=== PATIENT | female | born 1945 | race Caucasian/White ===

== ENCOUNTER 2022-05-03 05:39 | Inpatient (IN) | payer MEDICARE, SELFPAY ==
[2022-05-03] VITALS (21 sets, daily range): BP systolic 104–229; BP diastolic 50–107; PULSE 75–108; RESP 10–24; TEMP 36.1–37.1; O2SAT 55–97; BMI 41.8
--- NOTE | 2022-05-03 | ECG_ITS ---
Test Reason : SOB Blood Pressure : / mmHG Vent. Rate : 102 BPM Atrial Rate : 102 BPM P-R Int : 166 ms QRS Dur : 092 ms QT Int : 368 ms P-R-T Axes : 081 002 116 degrees QTc Int : 479 ms Sinus tachycardia Biatrial enlargement Left ventricular hypertrophy with repolarization abnormality ( Rene product ) Cannot rule out Septal infarct , age undetermined Abnormal ECG When compared with ECG of 10-SEP-2007 16:23, Minimal criteria for Septal infarct are now Present ST now depressed in Lateral leads T wave inversion now evident in Lateral leads Referred By: Generic ED Physician Electronically Signed By:SHERMAN FLOWERS
--- NOTE | ~2022-05-03 | XR_ITS ---
EXAMINATION: XR CHEST CLINICAL INFORMATION: Dyspnea, hypoxia COMPARISON: 09/03/2007 TECHNIQUE: Frontal view of the chest was obtained. FINDINGS: Lung volumes are symmetric. No focal consolidation is seen. Mildly coarsened appearance of the interstitium diffusely. No evidence of pneumothorax, pleural effusion, or overt pulmonary edema. The cardiomediastinal contour is unremarkable. No acute osseous findings are seen. XR/XR chest 1V IMPRESSION: No focal consolidation. Mildly coarsened appearance of the interstitium may reflect acute or chronic airways disease.
--- NOTE | ~2022-05-03 | XR_ITS ---
EXAMINATION: XR CHEST CLINICAL INFORMATION: Hypoxemia COMPARISON: 05/03/2022 TECHNIQUE: Frontal view of the chest was obtained. FINDINGS: No acute finding. No obvious failure or infiltrate. No effusion. Persistent right upper lung mass overlying the first rib The cardiac silhouette is within normal limits. The hilar regions do not appear pathologically enlarged. XR/XR chest 1V IMPRESSION: No acute finding. Persistent right upper lung mass when correlated with CT from 05/03/2022. Malignancy needs to be considered. PET/CT would be recommended to further evaluate
--- NOTE | ~2022-05-03 | CT_ITS ---
EXAMINATION: CT ANGIOGRAM OF THE CHEST WITH AND WITHOUT CONTRAST (CT PULMONARY ANGIOGRAM FOR PE) CLINICAL INFORMATION: Reason for Exam hypoxia, PE rule out, abn CXR COMPARISON: None TECHNIQUE: Prior to contrast administration, noncontrast localization images were obtained. Subsequently, multidetector volumetric imaging was performed from the thoracic inlet to below the diaphragms following the administration of 65 mL Omnipaque 350 intravenous contrast. No contrast reaction reported Sagittal, coronal, and MIP oblique sagittal reformatted images were obtained on the CT workstation, uploaded to PACS, and reviewed. This CT examination was performed using dose optimization techniques as appropriate, variously including the following: *Automated exposure control *Adjustment of mA and/or kV according to patient size (this includes techniques or standardized protocols for targeted exams where dose is matched to indication/reason for exam; i.e. extremities or head) *Use of iterative reconstruction technique Total exam dose-length product 496 mGy-cm FINDINGS: QUALITY OF STUDY/CONTRAST BOLUS: Suboptimal. PULMONARY ARTERIES: No evidence of central pulmonary embolus. Assessment is otherwise nondiagnostic for reliable detection of pulmonary emboli due to suboptimal contrast opacification. The attenuation in the central pulmonary trunk measures 209 Hounsfield units. THORACIC AORTA: No aneurysm or dissection. Moderate vascular calcifications. LUNG: Patchy nodular consolidative opacity in the right lung apex series 7 image 78 measuring 1.6 x 1 cm in axial dimension. No lobar consolidation. There are mildly increased scattered septal markings and groundglass opacities scattered throughout both lungs. Small irregular shaped right middle lobe perifissural nodule consistent with intrapulmonary lymph node measuring 3-4 mm in size on series 7 image 219 noted incidentally. Mild linear areas of subsegmental atelectasis in the peripheral lungs bilaterally. Central through segmental airways are clear. PLEURA: No pleural effusion or pneumothorax. MEDIASTINUM: Normal heart size. No pericardial effusion. Coarse mitral annular calcifications. No hilar or mediastinal lymphadenopathy. No evidence of septal bowing or right heart strain. CORONARY ARTERY CALCIFICATION: Extensive LAD and right coronary artery vascular calcifications. CHEST WALL/AXILLA: No axillary or internal mammary lymphadenopathy. OSSEOUS STRUCTURES: No acute fracture or suspicious osseous lesion. 1 cm sclerotic probable bone island noted in the T4 spinous process. Mild to moderate multilevel spondylosis of the thoracic and upper lumbar spine. UPPER ABDOMEN: Several low-density benign-appearing bilateral renal cysts, largest approximately 2.2 cm in size. Mild thickening of the left adrenal gland. Imaged upper abdominal viscera otherwise unremarkable. No reflux of contrast into the hepatic veins to suggest elevated right heart pressures. CT/CT angio chest PE protocol IMPRESSION: 1. No evidence of central pulmonary embolus. Assessment is otherwise nondiagnostic for reliable detection of pulmonary emboli due to suboptimal contrast opacification. 2. Mildly increased septal markings and diffuse mild groundglass opacities scattered throughout both lungs, nonspecific. Correlate clinically with signs or symptoms of atypical pneumonia or pneumonitis. Pulmonary edema is felt unlikely given the absence of effusions. 3. Small Patchy nodular consolidative opacity in the right lung apex, possibly infectious or inflammatory. Would recommend a follow-up CT in 3 months to confirm resolution. 4. Extensive coronary artery vascular calcifications. VTE: indeterminate
[2022-05-03 06:38] LABS: MANUAL DIFF FLAG NO
[2022-05-03 06:46] LABS: Basophils Percent Auto 0.3 % (0-2); Eosinophils Percent Auto 0.5 % (0-4); Hematocrit 47.7 % (37.0-47.0); Hemoglobin 15.3 g/dl (12.0-16.0); Imm Gran Abs Auto 0.13 X10*3/uL (0.00-0.03); Imm Gran Pct Auto 1.6 % (0.0-0.4); Lymphocytes Absolute Auto 0.6 X10*3/uL (1.2-4.9); Lymphocytes Percent Auto 8.1 % (20-40); Mean Corpuscular HGB Conc 32.1 g/dl (31.0-35.0); Mean Corpuscular Hemoglobin 26.8 pg (27.0-33.0); Mean Corpuscular Volume 83.7 fL (80.0-98.0); Mean Platelet Volume 8.5 fL (9.4-12.3); Monocytes Absolute Auto 0.6 X10*3/uL (0.1-1.2); Monocytes Percent Auto 7.1 % (2-11); Neutrophils Absolute Auto 6.5 x10*3/uL (2.0-8.3); Neutrophils Percent Auto 82.4 % (45-73); Platelet Count 283 X10*3/uL (160-400); Red Cell Distribution Width 16.7 % (11.0-16.0); White Blood Count 7.9 X10*3/uL (4.8-10.8)
--- NOTE | 2022-05-03 06:51 | PC.NURSE ---
I assumed nursing care of Merly upon her arrival to bed 13 from EMS. SHe arrived from home for evaluation of increased difficulty breathing x 2 weeks. On arrival she is on 2l nasal cannula with hsat's of 55% with an accurate pleth. RT was at the bedside and witnessed this. RT placed [place] nasal cannula on the pt at 10L and within 2-3 minutes her sat's improved to 92%. RR is 22, non-labored. Skin pale/warm/dry. She denies chest pain. She makes eye contact with RN and is calm and cooperative. IV acces/slabs obtained.
[2022-05-03 06:54] LABS: COVID-19 Test Negative (Negative); IDNOW Serial# 6674DD1D
[2022-05-03 07:02] LABS: Troponin-I High Sensitivity 31.8 ng/L (<3.5-17.0)
[2022-05-03 07:06] LABS: Alanine Aminotransferase 19 U/L (0-31); Albumin Level 3.7 g/dL (3.5-5.0); Alkaline Phosphatase 67 U/L (39-117); Anion Gap 17 (12-20); Aspartate Amino Transferase 29 U/L (5-31); Bilirubin Total 0.6 mg/dL (0.0-1.0); Blood Urea Nitrogen 18 mg/dL (9-16); Carbon Dioxide 29 mmol/L (22-29); Chloride 89 mmol/L (96-108); Creatinine Clr Calc Pharmacy 84.7; Estimated Glomerular Filt Rate > 60; Glucose Fasting 123 mg/dL (60-99); Potassium 4.9 mmol/L (3.3-5.1); Sodium 130 mmol/L (135-145); Total Protein 7.4 g/dL (6.5-8.0)
--- NOTE | 2022-05-03 07:20 | ED_ITS ---
HPI - General Adult General Chief complaint: Upper Respiratory Symptoms Stated complaint: sob Time Seen by Provider: 05/03/22 07:20 Source: patient Mode of arrival: EMS Limitations: no limitations History of Present Illness HPI narrative: patient woke up with shortness of breath, her O2 saturation was 50% this morn ing. Patient is known to have COPD. She has had a dry cough. Denies chest pain, fever. Patient has a pulse oximeter, patient is not on oxygen at home. Her baseline O2 is 94%, patient states that she had 74% O2 at home, EMS got 50% when they arrived at her house. Onset (ago): day(s) Severity: severe Pain Consistency: constant Related Data Allergies Allergy/AdvReac Type Severity Reaction Status Date / Time No Known Allergies Allergy Verified 05/03/22 07:28 Review of Systems Review of Systems: Yes all other systems are reviewed and are negative Cardiovascular: Cardiovascular: Reports dyspnea Respiratory: Respiratory: Reports dyspnea [facility] Social History Social History Alcohol intake: never Smoked in Last 30 Days: No Use of substances other than those prescribed or required for medical reasons: No Advance Directives: Yes Advance Directives Information Provided: Yes Advance Directives on File: No Physical Exam ED Vital Signs: Vital Signs - 24 hr 05/03/22 05:56 05/03/22 06:57 05/03/22 08:00 Temperature 98.4 F 97.7 F Pulse Rate 108 H 95 Respiratory Rate 22 H 23 H Blood Pressure 104/60 204/107 H Pulse Oximetry 95 55 L 96 Oxygen Delivery Method Nasal Cannula Nasal Cannula Oxygen Flow Rate 7 05/03/22 08:22 05/03/22 08:22 Temperature Pulse Rate 98 Respiratory Rate 22 H 17 Blood Pressure Pulse Oximetry Oxygen Delivery Method Oxygen Flow Rate BMI result Body Mass Index 41.8 Const Other: obese ill appearing, short of breath Orientation/consciousness: oriented to person and patient oriented x3 Limitations: no limitations HENMT Head: Yes normal to inspection Ears: external ears normal General nose exam: Normal external nose present Mouth: Normal oral and palatal mucosa present and oropharynx normal Throat: Yes posterior oropharynx normal Eyes General: appearance normal, both eyes and all related structures Neck Neck: Yes normal visual inspection Chest Chest palpation & inspection: normal inspection of the chest Resp Other: diffuse rales and slight wheeze Cardio Jugular venous distension: no JVD Rate: regular rate Rhythm: regular rhythm Heart sounds: S1 normal heart sound present and S2 normal heart sound present GI Inspection: Yes normal to inspection Palpation (GI): Soft to palpation, nontender and No hepatosplenomegaly present Auscultation: normal bowel sounds General: Yes no CVA tenderness Back/Spine/Pelvis Back: no CVA tenderness Skin General skin exam: no rashes or lesions noted Neuro General: oriented to person and patient oriented x3 Cranial nerves: Yes CN's II-XII intact bilaterally Motor exam (neuro): 5/5 motor strength present throughout Extrem General: Yes normal to inspection Psych Appearance: grossly normal Course Reevaluation(s) Reevaluation #1: Patient with hypoxia will admit for COPD exarcerbation Time: 08:38 Reevaluation #2: I spent 40 minutes of critical care, with interventions, assessments, speaking to patient, consultants, and family. Time: 08:38 Medications Administered Discontinued Medications Generic Name Dose Route Start Last Admin Trade Name Freq PRN Reason Stop Dose Admin Albuterol Sulfate 5 mg/ 0 mg 05/03/22 07:29 05/03/22 07:52 Ipratropium [place] 0.5 mg INHALE 05/03/22 07:30 2.5 each ONCE ONE Administration Methylprednisolone Sodium Succinate 125 mg 05/03/22 07:29 05/03/22 07:57 Methylprednisolone Sod Succ 125 Mg/2 Ml Vial IVPUSH 05/03/22 07:30 125 mg ONCE ONE Administration Medical Decision Making Differential Diagnosis Differential Diagnoses: The differential diagnosis associated with the pres entation includes (copd, pneumonia, RSV, COVID, influenza, ) Admission/Observation Consideration of admission/observation: Escalation of care including admission/observation considered (77 yo with shortness of breath and hypoxia, admission was considered immediately) Consult Healthcare Provider Management of the patient was discussed with: Hospitalist Lab Data MDM Lab Attestation statement: I reviewed the patient's lab results. 05/03/22 06:34 05/03/22 06:34 Labs: Lab Results 05/03/22 05/03/22 05/03/22 Range/Units 06:34 06:34 06:34 WBC 7.9 (4.8-10.8) X10*3/uL RBC 5.70 H (4.20-5.50) X10*6/uL Hgb 15.3 (12.0-16.0) g/dl Hct 47.7 H (37.0-47.0) % MCV 83.7 (80.0-98.0) fL MCH 26.8 L (27.0-33.0) pg MCHC 32.1 (31.0-35.0) g/dl RDW 16.7 H (11.0-16.0) % Plt Count 283 (160-400) X10*3/uL MPV 8.5 L (9.4-12.3) fL Immature Gran % (Auto) 1.6 H (0.0-0.4) % Neut % (Auto) 82.4 H (45-73) % Lymph % (Auto) 8.1 L (20-40) % [place] % (Auto) 7.1 (2-11) % Eos % (Auto) 0.5 (0-4) % Baso % (Auto) 0.3 (0-2) % Lymph # (Auto) 0.6 L (1.2-4.9) X10*3/uL [place] # (Auto) 0.6 (0.1-1.2) X10*3/uL Eos # (Auto) 0.0 (0.0-0.4) X10*3/uL Baso # (Auto) 0.0 (0.0-0.2) X10*3/uL Abs Immat Gran (auto) 0.13 H (0.00-0.03) X10*3/uL Absolute Neuts (auto) 6.5 (2.0-8.3) x10*3/uL Absolute Nucleated RBC 0.000 (0.0-0.012) X10*3/uL Nucleated RBC % (auto) 0.0 (0.0-0.2) /100WBC PT 11.0 (10.0-13.1) SEC INR 1.0 (0.9-1.1) O2 Saturation % ABG pH at Pt Temp (7.35-7.45) ABG pCO2 at Pt Temp (32-45) mmHg ABG pO2 at Pt Temp (83-108) mmHg ABG HCO3 (22-26) mmol/L ABG Base Excess (Actual) mmol/L Sodium 130 L (135-145) mmol/L Potassium 4.9 (3.3-5.1) mmol/L Chloride 89 L (96-108) mmol/L Carbon Dioxide 29 (22-29) mmol/L Anion Gap 17 (12-20) BUN 18 H (9-16) mg/dL Creatinine 0.75 (0.5-1.4) mg/dL Estim Creat Clear Calc 84.7 Estimated GFR > 60 Fasting Glucose 123 H (60-99) mg/dL Calcium 9.0 (8.4-10.2) mg/dL Total Bilirubin 0.6 (0.0-1.0) mg/dL AST 29 (5-31) U/L ALT 19 (0-31) U/L Alkaline Phosphatase 67 (39-117) U/L Troponin I High Sens (<3.5-17.0) ng/L Total Protein 7.4 (6.5-8.0) g/dL Albumin 3.7 (3.5-5.0) g/dL COVID-19 (CINDY) (Negative) COVID-19 Clin Com Influenza Type A (PCR) (Negative) Influenza Type B (PCR) (Negative) RSV RNA Qual (PCR) (Negative) SARS-CoV-2 RNA (RT-PCR) (Negative) 05/03/22 05/03/22 05/03/22 Range/Units 06:34 06:34 07:39 WBC (4.8-10.8) X10*3/uL RBC (4.20-5.50) X10*6/uL Hgb (12.0-16.0) g/dl Hct (37.0-47.0) % MCV (80.0-98.0) fL MCH (27.0-33.0) pg MCHC (31.0-35.0) g/dl RDW (11.0-16.0) % Plt Count (160-400) X10*3/uL MPV (9.4-12.3) fL Immature Gran % (Auto) (0.0-0.4) % Neut % (Auto) (45-73) % Lymph % (Auto) (20-40) % [place] % (Auto) (2-11) % Eos % (Auto) (0-4) % Baso % (Auto) (0-2) % Lymph # (Auto) (1.2-4.9) X10*3/uL [place] # (Auto) (0.1-1.2) X10*3/uL Eos # (Auto) (0.0-0.4) X10*3/uL Baso # (Auto) (0.0-0.2) X10*3/uL Abs Immat Gran (auto) (0.00-0.03) X10*3/uL Absolute Neuts (auto) (2.0-8.3) x10*3/uL Absolute Nucleated RBC (0.0-0.012) X10*3/uL Nucleated RBC % (auto) (0.0-0.2) /100WBC PT (10.0-13.1) SEC INR (0.9-1.1) O2 Saturation % ABG pH at Pt Temp (7.35-7.45) ABG pCO2 at Pt Temp (32-45) mmHg ABG pO2 at Pt Temp (83-108) mmHg ABG HCO3 (22-26) mmol/L ABG Base Excess (Actual) mmol/L Sodium (135-145) mmol/L Potassium (3.3-5.1) mmol/L Chloride (96-108) mmol/L Carbon Dioxide (22-29) mmol/L Anion Gap (12-20) BUN (9-16) mg/dL Creatinine (0.5-1.4) mg/dL Estim Creat Clear Calc Estimated GFR Fasting Glucose (60-99) mg/dL Calcium (8.4-10.2) mg/dL Total Bilirubin (0.0-1.0) mg/dL AST (5-31) U/L ALT (0-31) U/L Alkaline Phosphatase (39-117) U/L Troponin I High Sens 31.8 H (<3.5-17.0) ng/L Total Protein (6.5-8.0) g/dL Albumin (3.5-5.0) g/dL COVID-19 (CINDY) Negative (Negative) COVID-19 Clin Com See Note Influenza Type A (PCR) NEGATIVE (Negative) Influenza Type B (PCR) NEGATIVE (Negative) RSV RNA Qual (PCR) NEGATIVE (Negative) SARS-CoV-2 RNA (RT-PCR) NEGATIVE (Negative) 05/03/22 Range/Units 07:57 WBC (4.8-10.8) X10*3/uL RBC (4.20-5.50) X10*6/uL Hgb (12.0-16.0) g/dl Hct (37.0-47.0) % MCV (80.0-98.0) fL MCH (27.0-33.0) pg MCHC (31.0-35.0) g/dl RDW (11.0-16.0) % Plt Count (160-400) X10*3/uL MPV (9.4-12.3) fL Immature Gran % (Auto) (0.0-0.4) % Neut % (Auto) (45-73) % Lymph % (Auto) (20-40) % [place] % (Auto) (2-11) % Eos % (Auto) (0-4) % Baso % (Auto) (0-2) % Lymph # (Auto) (1.2-4.9) X10*3/uL [place] # (Auto) (0.1-1.2) X10*3/uL Eos # (Auto) (0.0-0.4) X10*3/uL Baso # (Auto) (0.0-0.2) X10*3/uL Abs Immat Gran (auto) (0.00-0.03) X10*3/uL Absolute Neuts (auto) (2.0-8.3) x10*3/uL Absolute Nucleated RBC (0.0-0.012) X10*3/uL Nucleated RBC % (auto) (0.0-0.2) /100WBC PT (10.0-13.1) SEC INR (0.9-1.1) O2 Saturation 88.0 % ABG pH at Pt Temp 7.35 (7.35-7.45) ABG pCO2 at Pt Temp 66 H* (32-45) mmHg ABG pO2 at Pt Temp 68 L (83-108) mmHg ABG HCO3 37 H (22-26) mmol/L ABG Base Excess (Actual) 8.8 mmol/L Sodium (135-145) mmol/L Potassium (3.3-5.1) mmol/L Chloride (96-108) mmol/L Carbon Dioxide (22-29) mmol/L Anion Gap (12-20) BUN (9-16) mg/dL Creatinine (0.5-1.4) mg/dL Estim Creat Clear Calc Estimated GFR Fasting Glucose (60-99) mg/dL Calcium (8.4-10.2) mg/dL Total Bilirubin (0.0-1.0) mg/dL AST (5-31) U/L ALT (0-31) U/L Alkaline Phosphatase (39-117) U/L Troponin I High Sens (<3.5-17.0) ng/L Total Protein (6.5-8.0) g/dL Albumin (3.5-5.0) g/dL COVID-19 (CINDY) (Negative) COVID-19 Clin Com Influenza Type A (PCR) (Negative) Influenza Type B (PCR) (Negative) RSV RNA Qual (PCR) (Negative) SARS-CoV-2 RNA (RT-PCR) (Negative) ABG Data Attestation ABG: I personally reviewed and interpreted this ABG as follows: (combination of respiratory acidosis secondary to CO2 retention and hypoxia) Independent Interpretation I performed an independent interpretation of an: EKG (sinus 100, flipped ts I and AVL) and Plain X-Ray (pulmonary fibrosis) Discharge Plan Discharge Clinical Impression: Respiratory failure, Acute exacerbation of chronic obstructive pulmonary disease Patient Disposition: Admitted As Inpatient
[2022-05-03] MEDS: methylPREDNISolone Sod Succ 125 MG/2 ML VIAL IVPUSH (07:57)
[2022-05-03 08:04] LABS: ABG Base Excess 8.8 mmol/L; ABG HCO3 37 mmol/L (22-26); ABG pCO2 66 mmHg (32-45); ABG pH 7.35 (7.35-7.45); ABG pO2 68 mmHg (83-108)
--- NOTE | 2022-05-03 08:04 | PC.NURSE ---
pt is a/o x 4 no sob/juvenal.02 sat 97% on 7L duoneb/compound noted. speaks in full sentences. lungs - diminished/tight all lobes. heart sounds - regular. abd soft and non-tender. bs + x 4 quads no edema noted. pt aware of plan of care.
[2022-05-03 08:25] LABS: Influenza A PCR NEGATIVE (Negative); Influenza B PCR NEGATIVE (Negative); Resp Syncy Virus RNA Qual PCR NEGATIVE (Negative); SARS COV2 PCR INHOUSE NEGATIVE (Negative)
[2022-05-03 09:35] LABS: ABG Refer to POC result
[2022-05-03] MEDS: Labetalol HCL 100 MG/20 ML VIAL 10 MG IVPUSH ×2 (10:55→13:57)
--- NOTE | 2022-05-03 10:55 | PHA.MEDREC ---
Pharmacy Consult ? Medication Reconciliation Pharmacy has completed the medication reconciliation. Patient listed medications she takes at home. She's not 100% certain on vitamin d dose but thinks 1000 units may be correct so it was entered that way.
[2022-05-03 11:27] LABS: Appearance Urine Turbid; Color Urine Yellow; Glucose Urine UA Negative (Negative); Leukocyte Esterase Urine Small (1+) (Negative); Nitrite Urine Positive (Negative); UMIC TRIGGER UACC YES; Urine Blood Small (1+) (Negative); Urine Ketones 15 mg/dL (Negative); Urine Protein 300 (3+) mg/dL (Neg-Trace)
[2022-05-03 11:42] LABS: Bacteria Urine 4+ (None Seen); UACC Culture Trigger YES; WBC Urine >50 /HPF (0-5)
[2022-05-03] MEDS: amLODIPine Besylate 5 MG TABLET PO (11:52)
--- NOTE | 2022-05-03 12:22 | PM.IMHP ---
History of Present Illness Date of Service: 05/03/22 Attending physician on admission: Trae Harrison Chief Complaint: sob 77-year-old female with history of COPD, GERD presented to the ED via EMS early this morning for evaluation of shortness of breath and hypoxia. She tells me for the last 2 weeks she has been noticing her pulse oximetry initially in the 70s but has been as low as the 50s in the last couple days. She has also had a productive cough. She is not oxygen dependent at home and tells me she has no PCP or outpatient medical follow-up. She also tells me she has not been eating or drinking much due to uncontrolled GERD symptoms despite taking 40 mg omeprazole. However she does tell me that she has been drinking primarily coffee and juice though has been trying to eat more bland foods. In the ED, she desatted to 55% and was placed on high-flow oxygen via nasal cannula maintaining oximetry around 88%. She denies any history of hypertension but has had blood pressures in the ED as high as 229/89. Denies any headaches, chest pain, lightheadedness. Denies any sick contacts. No fevers, chills, abdominal pain, nausea, vomiting, diarrhea, palpitations. No leukocytosis. Creatinine 0.75, BUN 18, sodium 130, potassium 4.9, chloride 89, CO2 29, glucose 123. Initial troponin 31.8, repeat pending. ABG with pH of 7.35, pCO2 66, PO2 68, HC03 37, O2 saturation 88%. UA with 1+ leukocytes, positive nitrites, 1+ blood, 3+ protein, positive urinary sediment, 4+ bacteria. Negative COVID-19, influenza, RSV. CXR is negative for any focal consolidation but does show mildly coarsened appearance of the interstitium likely reflecting a chronic restrictive airway disease. In the ED, has been treated with 125 mg IV methylprednisolone, 10 mg IV labetalol with improvement in blood pressure to 189/81. Also given albuterol updraft. Patient to be admitted for acute hypoxemic hypercarbic respiratory failure with COPD exacerbation. Review of Systems Review of Systems: General: No fevers, malaise, unintentional weight loss HEENT: No blurred vision, diplopia. No sore throat, nasal congestion, rhinorrhea, sinus pain, ear pain Cardiovascular: No chest pain, palpitations, or leg edema Respiratory: +shortness of breath, +wheezing, +cough GI: No abdominal pain, nausea, vomiting, diarrhea, constipation, melena, hematochezia : No dysuria, hematuria, increased urinary frequency, decreased urinary output MSK: No myalgia, back pain Neuro: No headaches, weakness, paresthesias Skin: No rashes or lesions [facility] Medical History (Updated 05/03/22 @ 12:28 by JONI Cruz) COPD (chronic obstructive pulmonary disease) GERD (gastroesophageal reflux disease) Social History Alcohol intake: never Smoked in Last 30 Days: No Use of substances other than those prescribed or required for medical reasons: No Advance Directives: Yes Advance Directives Information Provided: Yes Advance Directives on File: No Meds Allergies Allergy/AdvReac Type Severity Reaction Status Date / Time No Known Allergies Allergy Verified 05/03/22 07:28 Active Medications: Current Medications Acetaminophen (Acetaminophen 325 Mg Tablet) 650 mg PO Q6H PRN PRN Reason: Pain, Mild (Pain Scale 1-3) Albuterol Sulfate (Albuterol Sulfate (0.083%) 2.5 Mg/3 Ml Vial.Neb) 2.5 mg INHALE Q2H PRN PRN Reason: Shortness of Breath/Wheezing Albuterol Sulfate 2.5 mg/ (Ipratropium [place] 0.5 mg) 0 mg INHALE RQ4H WHILE AWAKE [facility] Last Admin: 05/03/22 12:16 Dose: 2.5 each Cyanocobalamin (Cyanocobalamin (Vitamin B-12) 500 Mcg Tablet) 500 mcg PO DAILY [facility] Docusate Sodium (Docusate Sodium 100 Mg Capsule) 100 mg PO DAILY PRN PRN Reason: Constipation Enoxaparin Sodium (Enoxaparin Sodium 40 Mg/0.4 Ml Syringe) 40 mg SUBCUT Q24H [facility] Sodium Chloride (Ns) 1,000 mls @ 80 mls/hr IVCONT .[id number] [facility] Ceftriaxone Sodium 1 gm/ (Sodium Chloride) 50 mls @ 100 mls/hr IV Q24H [facility] Stop: 05/07/22 13:29 Azithromycin 500 mg/ Sodium (Chloride) 250 mls @ 125 mls/hr IV Q24H [facility] Stop: 05/05/22 14:59 Methylprednisolone Sodium Succinate (Methylprednisolone Sod Succ 125 Mg/2 Ml Vial) 60 mg IVPUSH Q12H [facility] Omeprazole (Omeprazole 40 Mg Capsule.Dr) 40 mg PO DAILY@0630 [facility] Ondansetron HCl (Ondansetron Hcl 4 Mg/2 Ml Vial) 4 mg IVPUSH Q8H PRN PRN Reason: Nausea and Vomiting Pharmacy Consult (Consult Rx Perform Med Rec) 1 each MISCELLANE ONCE PRN PRN Reason: Consult order Sodium Chloride (0.9 % Sodium Chloride Flush 3 Ml Syringe) 3 ml IVFLUSH QSHIFT [facility] Vitamin D (Cholecalciferol (Vitamin D3) 25 Mcg Tablet) 25 mcg PO DAILY [facility] Vitamin E (Vitamin E (Dl,Tocopheryl Acet) 180 Mg (400 Unit) Capsule) 180 mg PO DAILY [facility] Home Medications Medication Instructions Recorded Confirmed Last Taken Type cholecalciferol (vitamin D3) 25 25 mcg PO DAILY 05/03/22 05/03/22 05/02/22 History mcg (1,000 unit) tablet (Vitamin D3) cyanocobalamin (vitamin B-12) 500 500 mcg PO DAILY 05/03/22 05/03/22 05/02/22 History mcg tablet omeprazole 20 mg capsule,delayed 40 mg PO DAILY 05/03/22 05/03/22 05/02/22 History release vitamin E 268 mg (400 unit) capsule 268 mg PO DAILY 05/03/22 05/03/22 05/02/22 History Physical Exam Vital Signs and Narrative: Vital Signs: Last Vital Signs Temp 98.4 F 05/03/22 12:11 Pulse 84 05/03/22 12:11 Resp 15 05/03/22 12:11 BP 176/79 H 05/03/22 12:11 Pulse Ox 90 L 05/03/22 12:11 O2 Del Method 05/03/22 12:11 O2 Flow Rate 50 05/03/22 11:32 FiO2 50 05/03/22 11:32 Oxygen Flow Rate 2 05/03/22 06:57 BMI result Body Mass Index 41.8 Constitutional - Awake and Alert, No apparent distress Eyes - PERRLA, EOMI Mouth- tongue and mucosa moist Cardiovascular - S1S2, RRR, No edema Respiratory - Normal lung expansion, Normal respiratory effort, No respiratory distress on high flow O2, expiratory wheezes auscultated in upper lobes bilaterally, otherwise diminished throughout Gastrointestinal - NT / ND; +BS; No rebound or guarding Extremities - no calf tenderness bilaterally, no swelling Skin - Warm/Dry. Mild skin tenting Neurological - Alert & oriented x3, CN II-XII in tact, 5/5 strength BUE and BLE Psychological - Appropriate affect Results Labs 05/03/22 06:34 05/03/22 06:34 Labs: Laboratory Results - last 24 hr 05/03/22 05/03/22 05/03/22 06:34 06:34 06:34 MCV 83.7 MCH 26.8 L MCHC 32.1 RDW 16.7 H Plt Count 283 MPV 8.5 L Immature Gran % (Auto) 1.6 H Neut % (Auto) 82.4 H Lymph % (Auto) 8.1 L [place] % (Auto) 7.1 Eos % (Auto) 0.5 Baso % (Auto) 0.3 Lymph # (Auto) 0.6 L [place] # (Auto) 0.6 Eos # (Auto) 0.0 Baso # (Auto) 0.0 Abs Immat Gran (auto) 0.13 H Absolute Neuts (auto) 6.5 Absolute Nucleated RBC 0.000 Nucleated RBC % (auto) 0.0 PT 11.0 INR 1.0 O2 Saturation ABG pH at Pt Temp ABG pCO2 at Pt Temp ABG pO2 at Pt Temp ABG HCO3 ABG Base Excess (Actual) Anion Gap 17 Estim Creat Clear Calc 84.7 Estimated GFR > 60 Fasting Glucose 123 H Calcium 9.0 Total Bilirubin 0.6 AST 29 ALT 19 Alkaline Phosphatase 67 Troponin I High Sens Total Protein 7.4 Albumin 3.7 Urine Color Urine Appearance Urine pH Ur Specific [place] Urine Protein Urine Glucose (UA) Urine Ketones Urine Blood Urine Nitrite Ur Leukocyte Esterase Urine RBC Urine WBC Ur Squamous Epith Cells Urine Bacteria Hyaline Casts COVID-19 (CINDY) COVID-19 Clin Com Influenza Type A (PCR) Influenza Type B (PCR) RSV RNA Qual (PCR) SARS-CoV-2 RNA (RT-PCR) 05/03/22 05/03/22 05/03/22 06:34 06:34 07:39 MCV MCH MCHC RDW Plt Count MPV Immature Gran % (Auto) Neut % (Auto) Lymph % (Auto) [place] % (Auto) Eos % (Auto) Baso % (Auto) Lymph # (Auto) [place] # (Auto) Eos # (Auto) Baso # (Auto) Abs Immat Gran (auto) Absolute Neuts (auto) Absolute Nucleated RBC Nucleated RBC % (auto) PT INR O2 Saturation ABG pH at Pt Temp ABG pCO2 at Pt Temp ABG pO2 at Pt Temp ABG HCO3 ABG Base Excess (Actual) Anion Gap Estim Creat Clear Calc Estimated GFR Fasting Glucose Calcium Total Bilirubin AST ALT Alkaline Phosphatase Troponin I High Sens 31.8 H Total Protein Albumin Urine Color Urine Appearance Urine pH Ur Specific [place] Urine Protein Urine Glucose (UA) Urine Ketones Urine Blood Urine Nitrite Ur Leukocyte Esterase Urine RBC Urine WBC Ur Squamous Epith Cells Urine Bacteria Hyaline Casts COVID-19 (CINDY) Negative COVID-19 Clin Com See Note Influenza Type A (PCR) NEGATIVE Influenza Type B (PCR) NEGATIVE RSV RNA Qual (PCR) NEGATIVE SARS-CoV-2 RNA (RT-PCR) NEGATIVE 05/03/22 05/03/22 07:57 11:11 MCV MCH MCHC RDW Plt Count MPV Immature Gran % (Auto) Neut % (Auto) Lymph % (Auto) [place] % (Auto) Eos % (Auto) Baso % (Auto) Lymph # (Auto) [place] # (Auto) Eos # (Auto) Baso # (Auto) Abs Immat Gran (auto) Absolute Neuts (auto) Absolute Nucleated RBC Nucleated RBC % (auto) PT INR O2 Saturation 88.0 ABG pH at Pt Temp 7.35 ABG pCO2 at Pt Temp 66 H* ABG pO2 at Pt Temp 68 L ABG HCO3 37 H ABG Base Excess (Actual) 8.8 Anion Gap Estim Creat Clear Calc Estimated GFR Fasting Glucose Calcium Total Bilirubin AST ALT Alkaline Phosphatase Troponin I High Sens Total Protein Albumin Urine Color Yellow Urine Appearance Turbid Urine pH 5.0 Ur Specific [place] 1.020 Urine Protein 300 (3+) H Urine Glucose (UA) Negative Urine Ketones 15 Urine Blood Small (1+) H Urine Nitrite Positive H Ur Leukocyte Esterase Small (1+) H Urine RBC 11-20 H Urine WBC >50 H Ur Squamous Epith Cells 11-20 Urine Bacteria 4+ Hyaline Casts 11-20 COVID-19 (CINDY) COVID-19 Clin Com Influenza Type A (PCR) Influenza Type B (PCR) RSV RNA Qual (PCR) SARS-CoV-2 RNA (RT-PCR) Imaging Radiologist's Impressions: Impressions Chest X-Ray 05/03/22 06:30 IMPRESSION: No focal consolidation. Mildly coarsened appearance of the interstitium may reflect acute or chronic airways disease. Assessment and Plan (1) Respiratory failure: Status: Acute (2) Acute exacerbation of chronic obstructive pulmonary disease: Status: Acute Plan 77-year-old female with history of COPD, GERD admitted for acute hypoxemic hypercapnic respiratory failure with acute COPD exacerbation. # acute hypoxemic hypercapnic respiratory failure with respiratory acidosis-secondary to COPD exacerbation -noted to desaturate to 55% on room air. Continue high-flow O2 to maintain oximetry 88-90% -ABG with pH 7.35, pCO2 66, PO2 68, HC03 37, O2 saturation 88% -CTA chest ordered to rule out PE given significant hypoxia -respiratory therapy following -treat COPD exacerbation below # acute COPD exacerbation -CXR does not show any focal consolidation, but with question of restrictive chronic airway disease pattern -Chest CTA pending -IV methylprednisolone 60 mg b.i.d. -DuoNebs q.4h while awake -albuterol q.2h p.r.n. -given productive cough, will also treat with IV azithromycin daily x3 days (initiated 05/03) # UTI -patient asymptomatic but UA positive for 1+ leukocytes, positive nitrites, 1+ blood, 3+ protein, urinary sediment, 4+ bacteria -treat with 1 g IV ceftriaxone daily x5 days (initiated 05/03) -urine culture pending. Blood cultures pending # elevated troponin- likely demand due to hypoxia -initial troponin 31. Repeat pending -EKG without any acute ischemic changes -BNP also pending # poor p.o. intake GERD -patient has been eating and drinking less due to uncontrolled GERD symptoms but has primarily been drinking coffee and juice. Educated on food and liquids to avoid -noted to have mild tenting of the skin on exam -continue omeprazole 40 mg daily -gentle IVF for now DVT prophylaxis-Lovenox DNR/DNI Patient requires inpatient stay of at least 2 midnights for management of acute respiratory failure with COPD exacerbation requiring high-flow oxygen, IV steroids, updrafts, and close monitoring to prevent pulmonary decompensation. Time Spent With Patient Time: Total time managing care of this patient today ____ minutes. Quality Stroke Does the patient have a stroke diagnosis?: No VTE Prior VTE?: No VTE Risk Level:: Medical - moderate - high VTE Device Contraindication: Treatment Not Indicated VTE Drug Contraindication: N/A - Med Ordered
[2022-05-03 12:44] LABS: B Type Natriuretic Peptide 335 pg/mL (<100)
[2022-05-03 12:47] LABS: Troponin-I High Sensitivity 33.2 ng/L (<3.5-17.0)
[2022-05-03 13:20] LABS: Creatinine Urine 121.65 mg/dL
[2022-05-03 13:20] LABS: VBG Base Excess 2.6 mmol/L; VBG HCO3 26 mmol/L (22-26); VBG pCO2 38 mmHg; VBG pH 7.44 (7.32-7.43); VBG pO2 83 mmHg
[2022-05-03 13:20] LABS: Venous Blood Gas Refer to POC result
[2022-05-03] MEDS: Enoxaparin Sodium 40 MG/0.4 ML SYRINGE SUBCUT (13:21)
[2022-05-03] MEDS: cefTRIAXone sodium 1 GM in 0.9 % Sodium Chloride 50 ML IV (13:21)
[2022-05-03] MEDS: 0.9 % Sodium Chloride 1,000 ML 80 ML IVCONT (13:22)
--- NOTE | 2022-05-03 13:48 | PC.NURSE ---
rn to rn report given to marcio. pt aware of plan of care for transfer to room 462
--- NOTE | 2022-05-03 13:51 | PC.NURSE ---
pt has prod cough, yellow sputum noted.
[2022-05-03] MEDS: iohexoL 350 MG/ML 100 ML INFUS..BTL IV (15:20)
[2022-05-03] MEDS: Azithromycin 500 MG in 0.9 % Sodium Chloride 250 ML 125 MG IV (15:33)
[2022-05-03] MEDS: 0.9 % Sodium Chloride Flush 3 ML SYRINGE IVFLUSH (15:33)
[2022-05-03 17:25] LABS: Osmolality Urine 607 mosm/kg (373-1093)
[2022-05-04] VITALS (13 sets, daily range): BP systolic 116–180; BP diastolic 53–90; PULSE 78–108; RESP 19–24; TEMP 36.1–37.1; O2SAT 85–98
[2022-05-04] MEDS: Haloperidol Lactate 5 MG/ML VIAL 2.5 MG IM (01:30)
[2022-05-04] MEDS: 0.9 % Sodium Chloride 1,000 ML 80 ML IVCONT (01:46)
--- NOTE | 2022-05-04 02:05 | PC.NURSE ---
patient was noted to be desating to 84% when nurse checked on patient and noticed high flow oxygen was off. Nurse attempted to put hiflow cannula back on patient and began hitting and kicking this nurse. at this time patient seemed to be disoriented which was a change in mental status from previous assessment where she was alert and oriented x4. patient was swearing and attempted to disconnect hiflow cannula tubing from hiflow machine. [employer] and nurse attempted to reorient patient and put her hi flow cannula on. Respiratory therapy came to bedside to assist with hiflow machine. MD Kapoor ordered x1 haldol and bilat wrist restraints. Patient still attempting to hit at staff while attempting to put hiflow back on. Once restraints ordered, restraints were applied. + cms & skin check, ROM, offered water and reoriented patient. x1 haldol given. Hiflow back on patient sats within limits of parameters of 88-92%. Patient still confused and disoriented.
[2022-05-04] MEDS: methylPREDNISolone Sod Succ 125 MG/2 ML VIAL 60 MG IVPUSH (06:31)
--- NOTE | 2022-05-04 09:51 | HO.PM.IMPN ---
Subjective Subjective Date of Service: 05/04/22 Interval History: sob Physical Exam Vital Signs: Vital Signs: Last Vital Signs Temp 97.7 F 05/04/22 07:42 Pulse 78 05/04/22 07:46 Resp 20 05/04/22 07:46 BP 164/68 H 05/04/22 07:42 Pulse Ox 98 05/04/22 07:42 O2 Del Method 05/04/22 07:42 O2 Flow Rate 50 05/04/22 04:00 FiO2 40 05/04/22 04:00 Oxygen Flow Rate 2 05/03/22 06:57 BMI result Body Mass Index 41.8 General: lethargic, no acute distress Resp: diminished bilateral, no accessory muscles used CVS: S1,S2,RRR GI: soft, non tender, non distended Neuro: motor grossly intact, alert Objective Data Active Medications Acetaminophen (Acetaminophen 325 Mg Tablet) 650 mg PO Q6H PRN PRN Reason: Pain, Mild (Pain Scale 1-3) Albuterol Sulfate (Albuterol Sulfate (0.083%) 2.5 Mg/3 Ml Vial.Neb) 2.5 mg INHALE Q2H PRN PRN Reason: Shortness of Breath/Wheezing Albuterol Sulfate 2.5 mg/ (Ipratropium [place] 0.5 mg) 0 mg INHALE RQ4H WHILE AWAKE [facility] Last Admin: 05/04/22 07:43 Dose: 2.5 each Documented By: HILARIA Cyanocobalamin (Cyanocobalamin (Vitamin B-12) 500 Mcg Tablet) 500 mcg PO DAILY [facility] Docusate Sodium (Docusate Sodium 100 Mg Capsule) 100 mg PO DAILY PRN PRN Reason: Constipation Enoxaparin Sodium (Enoxaparin Sodium 40 Mg/0.4 Ml Syringe) 40 mg SUBCUT Q24H [facility] Last Admin: 05/03/22 13:21 Dose: 40 mg Documented By: ISSAC Sodium Chloride (Ns) 1,000 mls @ 80 mls/hr IVCONT .[id number] [facility] Last Admin: 05/04/22 01:46 Dose: 80 mls/hr Documented By: [email or web address] Ceftriaxone Sodium 1 gm/ (Sodium Chloride) 50 mls @ 100 mls/hr IV Q24H [facility] Stop: 05/07/22 13:29 Last Infusion: 05/03/22 15:18 Dose: 0 mls/hr Documented By: PERLITA Azithromycin 500 mg/ Sodium (Chloride) 250 mls @ 125 mls/hr IV Q24H [facility] Stop: 05/05/22 14:59 Last Infusion: 05/03/22 17:58 Dose: 0 mls/hr Documented By: PERLITA Methylprednisolone Sodium Succinate (Methylprednisolone Sod Succ 125 Mg/2 Ml Vial) 60 mg IVPUSH Q12H [facility] Last Admin: 05/04/22 06:31 Dose: 60 mg Documented By: AMITA Omeprazole (Omeprazole 40 Mg Capsule.Dr) 40 mg PO DAILY@0630 [facility] Last Admin: 05/04/22 06:35 Dose: Not Given Documented By: AMITA Non-Admin Reason: Patient Refused Ondansetron HCl (Ondansetron Hcl 4 Mg/2 Ml Vial) 4 mg IVPUSH Q8H PRN PRN Reason: Nausea and Vomiting Pharmacy Consult (Consult Rx Perform Med Rec) 1 each MISCELLANE ONCE PRN PRN Reason: Consult order Sodium Chloride (0.9 % Sodium Chloride Flush 3 Ml Syringe) 3 ml IVFLUSH QSHIFT [facility] Last Admin: 05/04/22 00:10 Dose: Not Given Documented By: AMITA Non-Admin Reason: IV Running Vitamin D (Cholecalciferol (Vitamin D3) 25 Mcg Tablet) 25 mcg PO DAILY [facility] Vitamin E (Vitamin E (Dl,Tocopheryl Acet) 180 Mg (400 Unit) Capsule) 180 mg PO DAILY [facility] Labs 05/03/22 06:34 05/03/22 06:34 Labs: Laboratory Results - last 24 hr 05/03/22 05/03/22 05/03/22 11:11 11:11 11:11 VBG pH VBG pCO2 VBG pO2 VBG HCO3 VBG O2 Saturation VBG Base Excess Troponin I High Sens B-Natriuretic Peptide Urine Color Yellow Urine Appearance Turbid Urine pH 5.0 Ur Specific [place] 1.020 Urine Protein 300 (3+) H Urine Glucose (UA) Negative Urine Ketones 15 Urine Blood Small (1+) H Urine Nitrite Positive H Ur Leukocyte Esterase Small (1+) H Urine RBC 11-20 H Urine WBC >50 H Ur Squamous Epith Cells 11-20 Urine Bacteria 4+ Hyaline Casts 11-20 Urine Osmolality 607 Ur Random Sodium 46.0 Urine Creatinine 121.65 05/03/22 05/03/22 05/03/22 12:11 12:11 13:15 VBG pH 7.44 H VBG pCO2 38 VBG pO2 83 VBG HCO3 26 VBG O2 Saturation 97.0 VBG Base Excess 2.6 Troponin I High Sens 33.2 H B-Natriuretic Peptide 335 H Urine Color Urine Appearance Urine pH Ur Specific [place] Urine Protein Urine Glucose (UA) Urine Ketones Urine Blood Urine Nitrite Ur Leukocyte Esterase Urine RBC Urine WBC Ur Squamous Epith Cells Urine Bacteria Hyaline Casts Urine Osmolality Ur Random Sodium Urine Creatinine Assessment and Plan (1) Respiratory failure: Status: Acute Plan 77-year-old female with history of COPD, GERD admitted for acute hypoxemic hypercapnic respiratory failure with acute COPD exacerbation. acute hypoxemic hypercapnic respiratory failure with respiratory acidosis-secondary to COPD exacerbation complicated by metabolic encephalopathy steroids, nebs, empiric antibiotics follow up resp viral panel check repeat vbg UTI rocephin, follow up cultures GERD ppi DVT prophylaxis-Lovenox DNR/DNI reason for continued hospitalization: hypoxia Time Spent With Patient Time: Total time managing care of this patient today ____ minutes. Quality Stroke Does the patient have a stroke diagnosis?: No VTE Prior VTE?: No VTE Risk Level:: Medical - moderate - high VTE Device Contraindication: Treatment Not Indicated VTE Drug Contraindication: N/A - Med Ordered
[2022-05-04] MEDS: Cyanocobalamin (Vitamin B-12) 500 MCG TABLET PO (10:13)
[2022-05-04] MEDS: Cholecalciferol (Vitamin D3) 25 MCG TABLET PO (10:13)
[2022-05-04] MEDS: Vitamin E (Dl,Tocopheryl Acet) 180 MG (400 UNIT) CAPSULE PO (10:14)
--- NOTE | 2022-05-04 12:01 | P.CDIC_ITS ---
CDI Concurrent Query Documentation Clarification: PHYSICIAN'S DOCUMENTATION REQUEST Date of Query: 05/04/22 1201 Patient Name: Merly Orta Admit Date: 05/03/22 Dear Doctor, A review of the medical record indicates additional documentation may be needed. Please review below and update the documentation accordingly. Clinical Indicators: Is there a diagnosis that correlates with the findings below: Risk Factors/Clinical Indicators/Treatments BMI: 41.8 Height: 5ft 8in Weight: 124.73kg Per RN shift assessments: abdomen large & round If possible, please provide an associated diagnosis related to the abnormal BMI, such as: For a BMI >= 40: * Severe or Morbid Obesity * Obesity * Due to excess calories * Drug induced * Due to other cause * With alveolar hypoventilation * Without alveolar hypoventilation Or: * BMI is not significant * Other (please specify) * Unable to determine Use of terms such as suspected, likely, concern for, or probable (associated with a specific diagnosis that is being evaluated, monitored, or treated as if it exists) are acceptable and can be coded in the inpatient setting, when documented at the time of discharge. Thank you, Meli Deleon, MS, RN, CCRN Extension: [phone] Please use your independent medical judgment in providing your response. THIS QUERY IS PART OF THE PERMANENT MEDICAL RECORD Provider Response: Morbid Obesity
--- NOTE | 2022-05-04 12:10 | P.CDIC_ITS ---
CDI Concurrent Query Documentation Clarification: PHYSICIAN'S DOCUMENTATION REQUEST Date of Query: 05/04/22 1210 Patient Name: Merly Orta Admit Date: 05/03/22 Dear Doctor, A review of the medical record indicates additional documentation may be needed. Please review below and update the documentation accordingly. Clinical Indicators: Is there a diagnosis that correlates with these lab findings below: Risk Factors/Clinical Indicators/Treatments Labs: Sodium on 05/03 - 130 Based on the above, could you clarify in the Progress Notes the appropriate diagnosis, if significant, that supports the above abnormalities and additional evaluation, monitoring, and/or treatment rendered: * Hyponatremia * Other (please specify) * Unable to determine Use of terms such as suspected, likely, concern for, or probable (associated with a specific diagnosis that is being evaluated, monitored, or treated as if it exists) are acceptable and can be coded in the inpatient setting, when documented at the time of discharge. Thank you, Meli Deleon MS, RN, CCRN Extension: [phone] Please use your independent medical judgment in providing your response. THIS QUERY IS PART OF THE PERMANENT MEDICAL RECORD Provider Response: Other Other Diagnosis: hyponatremia - mild, monitor
--- NOTE | 2022-05-04 12:37 | P.CDIC_ITS ---
CDI Concurrent Query Documentation Clarification: PHYSICIAN'S DOCUMENTATION REQUEST Date of Query: 05/04/22 1238 Patient Name: Merly Orta Admit Date: 05/03/22 Dear Doctor, A review of the medical record indicates additional documentation may be needed. Please review below and update the documentation accordingly. Clinical Indicators: Is there a diagnosis that correlates with the findings below: Risk Factors/Clinical Indicators/Treatments Vitals: Blood pressure 05/03: 209/84 213/104 05/04: 180/90 Administered medications: Labatalol IV 10mg Clarify which, if any of the following, is a more accurate diagnosis reflecting the type and acuity of the documented hypertension: * Hypertensive emergency * Hypertensive urgency * Other ? please specify * Unable to determine Use of terms such as suspected, likely, concern for, or probable (associated with a specific diagnosis that is being evaluated, monitored, or treated as if it exists) are acceptable and can be coded in the inpatient setting, when documented at the time of discharge. Thank you, Meli Deleon MS, RN, CCRN Extension: [phone] Please use your independent medical judgment in providing your response. THIS QUERY IS PART OF THE PERMANENT MEDICAL RECORD Provider Response: Other Other Diagnosis: accelerated hypertension
[2022-05-04] MEDS: OLANZapine 2.5 MG TABLET PO (13:21)
[2022-05-04 13:22] LABS: Adenovirus PCR Not Detected (Not Detect.); Bordetella parapertussis PCR Not Detected (Not Detect.); Bordetella pertussis PCR Not Detected (Not Detect.); Chlamydia pneumoniae PCR Not Detected (Not Detect.); Coronavirus 229E PCR Not Detected (Not Detect.); Coronavirus HKU1 PCR Not Detected (Not Detect.); Coronavirus NL63 PCR Not Detected (Not Detect.); Coronavirus OC43 PCR Not Detected (Not Detect.); Human metapneumovirus PCR Not Detected (Not Detect.); Influenza A PCR Not Detected (Not Detect.); Influenza B PCR Not Detected (Not Detect.); Mycoplasma pneumoniae PCR Not Detected (Not Detect.); Parainfluenza 1 PCR Not Detected (Not Detect.); Parainfluenza 2 PCR Not Detected (Not Detect.); Parainfluenza 3 PCR Not Detected (Not Detect.); Parainfluenza 4 PCR Not Detected (Not Detect.); RSV PCR Not Detected (Not Detect.); Rhino/Enterovirus PCR Not Detected (Not Detect.); SARS-CoV-2 PCR Not Detected (Not Detect.)
[2022-05-04] MEDS: cefTRIAXone sodium 1 GM in 0.9 % Sodium Chloride 50 ML IV (13:22)
[2022-05-04] MEDS: Enoxaparin Sodium 40 MG/0.4 ML SYRINGE SUBCUT (13:22)
[2022-05-04] MEDS: 0.9 % Sodium Chloride Flush 3 ML SYRINGE IVFLUSH (14:05)
[2022-05-04] MEDS: Azithromycin 500 MG in 0.9 % Sodium Chloride 250 ML 125 MG IV (14:05)
[2022-05-04 14:32] LABS: MANUAL DIFF FLAG NO
[2022-05-04 14:34] LABS: Basophils Percent Auto 0.1 % (0-2); Eosinophils Percent Auto 0.2 % (0-4); Hematocrit 46.4 % (37.0-47.0); Hemoglobin 14.7 g/dl (12.0-16.0); Imm Gran Abs Auto 0.03 X10*3/uL (0.00-0.03); Imm Gran Pct Auto 0.3 % (0.0-0.4); Lymphocytes Absolute Auto 0.7 X10*3/uL (1.2-4.9); Lymphocytes Percent Auto 7.3 % (20-40); Mean Corpuscular HGB Conc 31.7 g/dl (31.0-35.0); Mean Corpuscular Hemoglobin 26.6 pg (27.0-33.0); Mean Corpuscular Volume 84.1 fL (80.0-98.0); Mean Platelet Volume 8.6 fL (9.4-12.3); Monocytes Absolute Auto 1.2 X10*3/uL (0.1-1.2); Monocytes Percent Auto 11.8 % (2-11); Neutrophils Absolute Auto 7.8 x10*3/uL (2.0-8.3); Neutrophils Percent Auto 80.3 % (45-73); Platelet Count 264 X10*3/uL (160-400); Red Blood Count 5.52 X10*6/uL (4.20-5.50); Red Cell Distribution Width 16.1 % (11.0-16.0); White Blood Count 9.7 X10*3/uL (4.8-10.8)
[2022-05-04 14:39] LABS: VBG Base Excess 7.3 mmol/L; VBG HCO3 30 mmol/L (22-26); VBG pCO2 36 mmHg; VBG pH 7.52 (7.32-7.43); VBG pO2 77 mmHg
[2022-05-04 14:40] LABS: Venous Blood Gas Refer to POC result
[2022-05-04 14:51] LABS: Anion Gap 15 (12-20); Blood Urea Nitrogen 17 mg/dL (9-16); Carbon Dioxide 27 mmol/L (22-29); Chloride 96 mmol/L (96-108); Creatinine Clr Calc Pharmacy 88.2; Estimated Glomerular Filt Rate > 60; Glucose Random 99 mg/dL (60-115); Potassium 4.4 mmol/L (3.3-5.1); Sodium 134 mmol/L (135-145)
--- NOTE | 2022-05-04 15:42 | MHC.CM.PN ---
pmet with pt who lives alone has no servceis and does not expect to need servceis when dcd pt is not covid vax will need a ride home when dcd
[2022-05-04] MEDS: hydrOXYzine HCL 25 MG TABLET PO (22:17)
[2022-05-05] VITALS (15 sets, daily range): BP systolic 129–174; BP diastolic 68–80; PULSE 80–118; RESP 16–24; TEMP 36.4–37.3; O2SAT 86–96
[2022-05-05] MEDS: methylPREDNISolone Sod Succ 125 MG/2 ML VIAL 60 MG IVPUSH ×2 (05:05→17:57)
[2022-05-05] MEDS: Omeprazole 40 MG CAPSULE.DR PO (05:06)
[2022-05-05 07:22] LABS: Hematocrit 47.3 % (37.0-47.0); Hemoglobin 14.7 g/dl (12.0-16.0); Mean Corpuscular HGB Conc 31.1 g/dl (31.0-35.0); Mean Corpuscular Hemoglobin 26.7 pg (27.0-33.0); Mean Platelet Volume 8.7 fL (9.4-12.3); Platelet Count 249 X10*3/uL (160-400); Red Cell Distribution Width 16.4 % (11.0-16.0); White Blood Count 8.3 X10*3/uL (4.8-10.8)
[2022-05-05 07:58] LABS: Anion Gap 16 (12-20); Blood Urea Nitrogen 16 mg/dL (9-16); Carbon Dioxide 30 mmol/L (22-29); Chloride 98 mmol/L (96-108); Creatinine Clr Calc Pharmacy 84.7; Estimated Glomerular Filt Rate > 60; Glucose Fasting 116 mg/dL (60-99); Potassium 4.4 mmol/L (3.3-5.1); Sodium 140 mmol/L (135-145)
[2022-05-05] MEDS: Cholecalciferol (Vitamin D3) 25 MCG TABLET PO (09:05)
[2022-05-05] MEDS: Vitamin E (Dl,Tocopheryl Acet) 180 MG (400 UNIT) CAPSULE PO (09:05)
[2022-05-05] MEDS: Cyanocobalamin (Vitamin B-12) 500 MCG TABLET PO (09:05)
[2022-05-05] MEDS: 0.9 % Sodium Chloride Flush 3 ML SYRINGE IVFLUSH ×2 (09:05→15:30)
[2022-05-05] MEDS: cefTRIAXone sodium 1 GM in 0.9 % Sodium Chloride 50 ML IV (12:00)
[2022-05-05] MEDS: Enoxaparin Sodium 40 MG/0.4 ML SYRINGE SUBCUT (12:44)
[2022-05-05] MEDS: Azithromycin 500 MG in 0.9 % Sodium Chloride 250 ML 125 MG IV (12:44)
--- NOTE | 2022-05-05 14:00 | CA_ITS ---
Transthoracic Echocardiogram Patient (Last, First, Middle): Merly Orta, Gender: Female Date of : 1945 Age: 77 Procedure Date: 05/05/2022 Procedure Type: Transthoracic [place] [facility] [place]: 172.72 cm Weight: 124.74 kg BSA: 2.34 m2 Heart Rate: bpm BP: 129 / 68 mmHg Regional Sales Director: KILLIAN Referring MD: Emanuel Vidal MD Symptoms: SOB, Hypoxia Study Quality: Technically Difficult ECG Rhythm: Sinus Conclusions: - The left ventricular systolic function is hyperdynamic. The visually estimated ejection fraction is >70%. - There is severe mitral annular calcification. - Possible moderate to severe mitral stenosis. Findings Left Ventricle Normal left ventricular cavity size. There is moderately increased left ventricular wall thickness. The left ventricular systolic function is hyperdynamic. The visually estimated ejection fraction is >70%. There is no evidence of regional wall motion abnormalities. E/E prime ratio is >15, consistent with elevated filling pressures. Evidence suggests grade I (mild) diastolic dysfunction. There is severe septal asymmetric hypertrophy. Intraventricular and LVOT gradients noted, but not suggestive of obstruction. Right Ventricle Normal right ventricular cavity size and systolic function. Atria Both atria are normal in size. Aortic Valve There is a normal trileaflet aortic valve. There is mild calcification of the aortic valve. There is no aortic valve stenosis. There is no aortic valve regurgitation. Mitral Valve There is severe mitral annular calcification. There is no mitral valve regurgitation. Mean gradient across the mitral valve 10 mm Hg at 104/min. Possible moderate to severe mitral stenosis. Pulmonic Valve The pulmonic valve is likely normal. Tricuspid Valve There is trace tricuspid valve regurgitation. There is no evidence of pulmonary hypertension. Great Vessels The asc aorta is normal in size. Small plaque is seen in the sino tubular ridge. Venous The inferior vena cava was not well visualized. Pericardium/Pleural There is no evidence of pericardial effusion. Prior Study Comparison No prior study available for comparison. Patient terminated exam- could not tolerate. Measurements 2D Linear Measurements IVSd: 1.51 0.6-0.9/0.6-1.0 cm LVIDd: 3.91 3.9-5.3/4.2-5.9 cm LVIDd Index: 1.67 2.4-3.2/2.2-3.1 cm/m2 LVIDs: 2.20 2.0-3.6 cm LVPWd: 1.31 0.7-1.1 cm LA Diam: 3.90 2.7-3.8/3.0-4.0 cm LAIDs Index: 1.67 1.5-2.3 cm/m2 LV Mass: 254.85 67-162/88-224 g LV Mass Index: 108.91 43-95/49-115 g/m2 LVOT Diam: 1.90 3.0+(-)1.3 cm Mitral Valve MV VTI: 0.44 MV Pk Louis: 2.61 MV Mn Louis: 1.47 MV Pk Grad: 27.00 MV Mn Grad: 10.00 MV Pk E: 1.27 MV PK A: 2.31 MV Decel Time: 156.00 E/A: 0.50 E'Lateral: 7.94 E'Medial: 5.44 E/E' Med: 23.30 E/E' Lat: 16.00 PHT: 46.00 MVA PHT: 4.78 MVA Continuity: 1.71 Decel Rolette: 8.16 Aortic Valve AoV Pk Louis: 1.66 AoV Mn Louis: 1.22 AoV VTI: 0.31 AoV Pk Grad: 11.00 Aov Mn Grad: 7.00 ALEJA Cont.VTI: 2.46 LVOT LVOT Pk Louis: 1.44 LVOT Mn Louis: 1.08 LVOT VTI: 0.27 LVOT Pk Grad: 8.00 LVOT Mn Grad: 5.00 LVOT Diam: 1.90 LVOT Area: 2.84 Diastolic Function MV Pk E: 1.27 MV Pk A: 2.31 E/A: 0.50 E'Medial: 5.44 E/E' Med: 23.30 E' Laterial: 7.94 E/E' Lat: 16.00 Right Ventricle TAPSE (mm): 27.20 TVS' Louis: 20.80 Tricuspid Valve TR Pk Louis: 1.70 TR Pk Grad: 12.00 Great Vessels Aorta Sinus of Valsalva: 3.13 2.0-3.[address] Ridge: 2.43 1.7-3.4 cm Ao Asc: 3.40 2.1-3.4 cm Updated in Other Vendor System with Status of Final Amol Robert MD electronically signed on 05/06/2022 11:44:59 AM with status of Final
--- NOTE | 2022-05-05 14:22 | P.PNIM_ITS ---
Subjective Subjective Date of Service: 05/05/22 Interval History: Seen and evaluated this morning Still requiring high-flow oxygen Reported feeling better overall No other overnight events Review of Systems Review of Systems: Yes all other systems are reviewed and are negative Physical Exam Vital Signs: Vital Signs: Last Vital Signs Temp 99.1 F 05/05/22 11:33 Pulse 91 05/05/22 11:33 Resp 20 05/05/22 11:33 BP 129/68 05/05/22 11:33 Pulse Ox 90 L 05/05/22 11:33 O2 Del Method 05/05/22 11:33 O2 Flow Rate 4 05/05/22 04:00 FiO2 84 05/05/22 11:33 Oxygen Flow Rate 2 05/03/22 06:57 BMI result Body Mass Index 41.8 Const: Other: Constitutional : Awake, interactive, not in distress Neck : Normal inspection, Supple Cardiovascular : RRR, no JVP, no lower extremity edema Respiratory : Decreased bilateral air entry, no crackles, minimal expiratory wheezes Gastrointestinal: soft, lax, Normal bowel sounds, Non tender Skin : Warm, Dry Neurological : Alert & oriented x3, No focal deficit Objective Data Active Medications Acetaminophen (Acetaminophen 325 Mg Tablet) 650 mg PO Q6H PRN PRN Reason: Pain, Mild (Pain Scale 1-3) Albuterol Sulfate (Albuterol Sulfate (0.083%) 2.5 Mg/3 Ml Vial.Neb) 2.5 mg INHALE Q2H PRN PRN Reason: Shortness of Breath/Wheezing Albuterol Sulfate 2.5 mg/ (Ipratropium Munith 0.5 mg) 0 mg INHALE RQ4H WHILE AWAKE [facility] Last Admin: 05/05/22 11:11 Dose: 2.5 each Documented By: HILARIA Cyanocobalamin (Cyanocobalamin (Vitamin B-12) 500 Mcg Tablet) 500 mcg PO DAILY [facility] Last Admin: 05/05/22 09:05 Dose: 500 mcg Documented By: ED Docusate Sodium (Docusate Sodium 100 Mg Capsule) 100 mg PO DAILY PRN PRN Reason: Constipation Enoxaparin Sodium (Enoxaparin Sodium 40 Mg/0.4 Ml Syringe) 40 mg SUBCUT Q24H [facility] Last Admin: 05/05/22 12:44 Dose: 40 mg Documented By: ED Ceftriaxone Sodium 1 gm/ (Sodium Chloride) 50 mls @ 100 mls/hr IV Q24H [facility] Stop: 05/07/22 13:29 Last Infusion: 05/05/22 12:45 Dose: 0 mls/hr Documented By: ED Azithromycin 500 mg/ Sodium (Chloride) 250 mls @ 125 mls/hr IV Q24H [facility] Stop: 05/05/22 14:59 Last Admin: 05/05/22 12:44 Dose: 125 mls/hr Documented By: ED Methylprednisolone Sodium Succinate (Methylprednisolone Sod Succ 125 Mg/2 Ml Vial) 60 mg IVPUSH Q12H [facility] Last Admin: 05/05/22 05:05 Dose: 60 mg Documented By: VISHAL Omeprazole (Omeprazole 40 Mg Capsule.) 40 mg PO DAILY@0630 [facility] Last Admin: 05/05/22 05:06 Dose: 40 mg Documented By: VISHAL Ondansetron HCl (Ondansetron Hcl 4 Mg/2 Ml Vial) 4 mg IVPUSH Q8H PRN PRN Reason: Nausea and Vomiting Pharmacy Consult (Consult Rx Perform Med Rec) 1 each MISCELLANE ONCE PRN PRN Reason: Consult order Sodium Chloride (0.9 % Sodium Chloride Flush 3 Ml Syringe) 3 ml IVFLUSH QSHIFT [facility] Last Admin: 05/05/22 09:05 Dose: 3 ml Documented By: ED Vitamin D (Cholecalciferol (Vitamin D3) 25 Mcg Tablet) 25 mcg PO DAILY [facility] Last Admin: 05/05/22 09:05 Dose: 25 mcg Documented By: ED Vitamin E (Vitamin E (Dl,Tocopheryl Acet) 180 Mg (400 Unit) Capsule) 180 mg PO DAILY [facility] Last Admin: 05/05/22 09:05 Dose: 180 mg Documented By: ED Labs 05/05/22 07:04 05/05/22 07:04 Labs: Laboratory Results - last 24 hr 05/04/22 05/04/22 05/04/22 14:28 14:28 14:30 MCV 84.1 MCH 26.6 L MCHC 31.7 RDW 16.1 H Plt Count 264 MPV 8.6 L Immature Gran % (Auto) 0.3 Neut % (Auto) 80.3 H Lymph % (Auto) 7.3 L Coffey % (Auto) 11.8 H Eos % (Auto) 0.2 Baso % (Auto) 0.1 Lymph # (Auto) 0.7 L Coffey # (Auto) 1.2 Eos # (Auto) 0.0 Baso # (Auto) 0.0 Abs Immat Gran (auto) 0.03 Absolute Neuts (auto) 7.8 Absolute Nucleated RBC 0.000 Nucleated RBC % (auto) 0.0 VBG pH 7.52 H VBG pCO2 36 VBG pO2 77 VBG HCO3 30 H VBG O2 Saturation 95.0 VBG Base Excess 7.3 Anion Gap 15 Estim Creat Clear Calc 88.2 Estimated GFR > 60 Random Glucose 99 Fasting Glucose Calcium 9.0 05/05/22 05/05/22 07:04 07:04 MCV 86.0 MCH 26.7 L MCHC 31.1 RDW 16.4 H Plt Count 249 MPV 8.7 L Immature Gran % (Auto) Neut % (Auto) Lymph % (Auto) Coffey % (Auto) Eos % (Auto) Baso % (Auto) Lymph # (Auto) Coffey # (Auto) Eos # (Auto) Baso # (Auto) Abs Immat Gran (auto) Absolute Neuts (auto) Absolute Nucleated RBC 0.000 Nucleated RBC % (auto) 0.0 VBG pH VBG pCO2 VBG pO2 VBG HCO3 VBG O2 Saturation VBG Base Excess Anion Gap 16 Estim Creat Clear Calc 84.7 Estimated GFR > 60 Random Glucose Fasting Glucose 116 H Calcium 9.0 Microbiology Microbiology Results: Microbiology 05/03/22 13:06 Blood Culture - Preliminary Blood - Venous No growth after 24 hours. 05/03/22 13:06 Blood Culture - Preliminary Blood - Venous No growth after 24 hours. 05/03/22 Unknown Urine Culture - Final Urine clean catch - Urine burciaga top Assessment and Plan (1) Acute exacerbation of chronic obstructive pulmonary disease: Status: Acute (2) Respiratory failure: Status: Acute Plan 77-year-old female with history of COPD, GERD admitted for acute hypoxemic hypercapnic respiratory failure with acute COPD exacerbation. acute hypoxemic hypercapnic respiratory failure with respiratory acidosis- secondary to COPD exacerbation complicated by metabolic encephalopathy Mental status improved Continue steroids, nebs, Continue empiric antibiotics Negative resp viral panel Pending respiratory consult UTI rocephin, follow up cultures GERD ppi DVT prophylaxis-Lovenox DNR/DNI reason for continued hospitalization: hypoxia pending pulmonology evaluation and weaning down oxygen Time Spent With Patient Time: Total time managing care of this patient today ____ minutes. Quality Stroke Does the patient have a stroke diagnosis?: No VTE Prior VTE?: No VTE Risk Level:: Medical - moderate - high VTE Device Contraindication: Treatment Not Indicated VTE Drug Contraindication: N/A - Med Ordered
--- NOTE | 2022-05-05 15:22 | PM.CNPUL ---
History of Present Illness History of Present Illness Consult date: 05/05/22 Requesting physician: Emanuel Vidal Chief complaint: COPD exacerbation acute hypoxemic respiratory fail Narrative: 77-year-old lady former approximately 30 pack-year smoker, quit 30 years prior, with underlying CAD status post stenting, COPD, not on bronchodilator therapy admitted on 05/03/2022 with slowly progressive dyspnea and hypoxia. On ER evaluation patient was noted to be in exacerbation of underlying COPD. CT injury chest was obtained and was negative for large pulmonary emboli. She was admitted to telemetry [facility] and empirically treated with systemic glucocorticoids and nebulized bronchodilators. Hospital course is significant for profound hypoxemia requiring high-flow nasal cannula support not consistent with COPD exacerbation. Pulmonary evaluation was requested. Review of Systems Constitutional: Constitutional: Denies daytime sleepiness, Denies excessive sweating, Denies fatigue, Denies fever(s), Denies lethargy, Denies malaise, Denies night sweats, Denies snoring and Denies weight loss Eyes: Eyes: Denies blurry vision and Denies itchy eyes ENT: Denies nasal congestion, Denies post nasal drip, Denies sinus pain, Denies sinus pressure and Denies other ( Thrush) Cardiovascular: Cardiovascular: Denies chest pain, Denies pedal edema, Denies dyspnea, Reports dyspnea on exertion, Denies orthopnea and Denies paroxysmal nocturnal dyspnea Respiratory: Respiratory: Denies cough, Denies hemoptysis, Denies excessive phlegm production, Denies dyspnea, Reports dyspnea on exertion, Denies snoring and Denies wheezing Gastrointestinal: Gastrointestinal: Denies abdominal pain and Denies heartburn Musculoskeletal: Musculoskeletal: Denies myalgias, Denies arthralgias and Denies joint swelling Integumentary/Breasts: Skin/Breast: Denies rash Neurologic: Denies memory loss and Denies seizure-like activity Psychiatric: Psychiatric: Denies abnormal sleep pattern, Denies anxiety and Denies memory loss Endocrine: Endocrine: Denies excessive sweating, Denies fatigue and Denies heat intolerance Hematologic/Lymphatic: Hematologic/Lymphatic: Denies easy bruising Allergic/Immunologic: Allergic/Immunologic: Denies itchy eyes, Denies seasonal rhinorrhea and Denies wheezing PMFSH Past Medical History Medical History (Updated 05/03/22 @ 12:28 by JONI Cruz) COPD (chronic obstructive pulmonary disease) GERD (gastroesophageal reflux disease) Social History Social History Household Members: None Housing: Apartment Do you presently have visiting nurse or other home services: No Alcohol intake: never Patient Tobacco Use Status: Former Tobacco user Tobacco use type: Cigarette Smoked in Last 30 Days: No e-Cigarette/Vaping Use: Former Use Patient Interested in Nicotine Replacement: No Patient Given Instructions on How to Stop Smoking: No Second Hand Smoke Exposure: No Use of substances other than those prescribed or required for medical reasons: No Currently Displaying Signs/Symptoms of Drug Intoxication Withdrawal: No Any prior treatment program specific to substance use: No Have you been hit, kicked, punched, or otherwise hurt by someone within the past year? If so, by whom?: No Do you feel safe in your current relationship?: No Current Relationship Is there a partner from a previous relationship who is making you feel unsafe now?: No Are you made to feel afraid or neglected: No Advance Directives: Yes Advance Directives Information Provided: Yes Advance Directives on File: No Advance Directives Date on File: 05/03/22 Do you have thoughts of harming others: None Do you have a plan to hurt others: No Plan Recently lost weight without trying: Yes How much weight loss: Unsure Eating poorly because of decreased appetite: No Nutrition screen score: 4 Nutrition Risks: Difficulty swallowing and On aspiration precautions Patient : No : No Poor oral hygiene: No service: No Meds Allergies Allergy/AdvReac Type Severity Reaction Status Date / Time No Known Allergies Allergy Verified 05/03/22 07:28 Active Medications: Current Medications Acetaminophen (Acetaminophen 325 Mg Tablet) 650 mg PO Q6H PRN PRN Reason: Pain, Mild (Pain Scale 1-3) Albuterol Sulfate (Albuterol Sulfate (0.083%) 2.5 Mg/3 Ml Vial.Neb) 2.5 mg INHALE Q2H PRN PRN Reason: Shortness of Breath/Wheezing Albuterol Sulfate 2.5 mg/ (Ipratropium [place] 0.5 mg) 0 mg INHALE RQ4H WHILE AWAKE [facility] Last Admin: 05/05/22 15:10 Dose: 2.5 each Cyanocobalamin (Cyanocobalamin (Vitamin B-12) 500 Mcg Tablet) 500 mcg PO DAILY [facility] Last Admin: 05/05/22 09:05 Dose: 500 mcg Docusate Sodium (Docusate Sodium 100 Mg Capsule) 100 mg PO DAILY PRN PRN Reason: Constipation Enoxaparin Sodium (Enoxaparin Sodium 40 Mg/0.4 Ml Syringe) 40 mg SUBCUT Q24H [facility] Last Admin: 05/05/22 12:44 Dose: 40 mg Ceftriaxone Sodium 1 gm/ (Sodium Chloride) 50 mls @ 100 mls/hr IV Q24H [facility] Stop: 05/07/22 13:29 Last Infusion: 05/05/22 12:45 Dose: Infused Methylprednisolone Sodium Succinate (Methylprednisolone Sod Succ 125 Mg/2 Ml Vial) 60 mg IVPUSH Q12H [facility] Last Admin: 05/05/22 05:05 Dose: 60 mg Omeprazole (Omeprazole 40 Mg Capsule.Dr) 40 mg PO DAILY@0630 [facility] Last Admin: 05/05/22 05:06 Dose: 40 mg Ondansetron HCl (Ondansetron Hcl 4 Mg/2 Ml Vial) 4 mg IVPUSH Q8H PRN PRN Reason: Nausea and Vomiting Pharmacy Consult (Consult Rx Perform Med Rec) 1 each MISCELLANE ONCE PRN PRN Reason: Consult order Sodium Chloride (0.9 % Sodium Chloride Flush 3 Ml Syringe) 3 ml IVFLUSH QSHIFT [facility] Last Admin: 05/05/22 09:05 Dose: 3 ml Vitamin D (Cholecalciferol (Vitamin D3) 25 Mcg Tablet) 25 mcg PO DAILY [facility] Last Admin: 05/05/22 09:05 Dose: 25 mcg Vitamin E (Vitamin E (Dl,Tocopheryl Acet) 180 Mg (400 Unit) Capsule) 180 mg PO DAILY [facility] Last Admin: 05/05/22 09:05 Dose: 180 mg Home Medications Medication Instructions Recorded Confirmed Last Taken Type cholecalciferol (vitamin D3) 25 25 mcg PO DAILY 05/03/22 05/03/22 05/02/22 History mcg (1,000 unit) tablet (Vitamin D3) cyanocobalamin (vitamin B-12) 500 500 mcg PO DAILY 05/03/22 05/03/22 05/02/22 History mcg tablet omeprazole 20 mg capsule,delayed 40 mg PO DAILY 05/03/22 05/03/22 05/02/22 History release vitamin E 268 mg (400 unit) capsule 268 mg PO DAILY 05/03/22 05/03/22 05/02/22 History Physical Exam Vital Signs: Vital Signs: Last Vital Signs Temp 99.1 F 05/05/22 11:33 Pulse 104 H 05/05/22 15:12 Resp 22 H 05/05/22 15:13 BP 129/68 05/05/22 11:33 Pulse Ox 90 L 05/05/22 11:33 O2 Del Method 05/05/22 11:33 O2 Flow Rate 4 05/05/22 04:00 FiO2 84 05/05/22 11:33 Oxygen Flow Rate 2 05/03/22 06:57 BMI result Body Mass Index 41.8 Const: General: no acute distress and alert Nutritional Appearance: not obese Orientation/consciousness: Other orientation findings ( oriented) HEENT: Head: Yes atraumatic Mouth: no other ( thrush) Throat: No postnasal drainage Eyes: General: appearance normal, both eyes and all related structures Sclerae: sclerae normal EOM: EOMs intact bilaterally Neck: Neck: Yes supple Lymphatic: no lymphadenopathy noted Resp: Effort & Inspection: normal respiratory effort and no use of accessory muscles Auscultation: other (Poor bilateral air moved) Cardio: Rate: regular rate Rhythm: regular rhythm Heart sounds: no gallops, no murmurs and no rubs GI: Palpation (GI): Soft to palpation and Other GI palpation findings present ( nontender) Skin: General skin exam: other ( warm) Rashes: no rashes Extrem: General: No clubbing, No cyanosis and Yes edema (Trace bilateral) Results Laboratory Findings 05/05/22 07:04 05/05/22 07:04 ABG, PT/INR, D-dimer: PT/INR, D-dimer PT 11.0 SEC (10.0-13.1) 05/03/22 06:34 INR 1.0 (0.9-1.1) 05/03/22 06:34 Abnormal lab findings: Abnormal Labs 05/03/22 05/03/22 05/03/22 06:34 06:34 06:34 RBC 5.70 H Hct 47.7 H MCH 26.8 L RDW 16.7 H MPV 8.5 L Immature Gran % (Auto) 1.6 H Neut % (Auto) 82.4 H Lymph % (Auto) 8.1 L [place] % (Auto) Lymph # (Auto) 0.6 L Abs Immat Gran (auto) 0.13 H ABG pCO2 at Pt Temp ABG pO2 at Pt Temp ABG HCO3 VBG pH VBG HCO3 Sodium 130 L Chloride 89 L Carbon Dioxide BUN 18 H Fasting Glucose 123 H Troponin I High Sens 31.8 H B-Natriuretic Peptide Urine Protein Urine Blood Urine Nitrite Ur Leukocyte Esterase Urine RBC Urine WBC 05/03/22 05/03/22 05/03/22 07:57 11:11 12:11 RBC Hct MCH RDW MPV Immature Gran % (Auto) Neut % (Auto) Lymph % (Auto) [place] % (Auto) Lymph # (Auto) Abs Immat Gran (auto) ABG pCO2 at Pt Temp 66 H* ABG pO2 at Pt Temp 68 L ABG HCO3 37 H VBG pH VBG HCO3 Sodium Chloride Carbon Dioxide BUN Fasting Glucose Troponin I High Sens 33.2 H B-Natriuretic Peptide Urine Protein 300 (3+) H Urine Blood Small (1+) H Urine Nitrite Positive H Ur Leukocyte Esterase Small (1+) H Urine RBC 11-20 H Urine WBC >50 H 05/03/22 05/03/22 05/04/22 12:11 13:15 14:28 RBC 5.52 H Hct MCH 26.6 L RDW 16.1 H MPV 8.6 L Immature Gran % (Auto) Neut % (Auto) 80.3 H Lymph % (Auto) 7.3 L [place] % (Auto) 11.8 H Lymph # (Auto) 0.7 L Abs Immat Gran (auto) ABG pCO2 at Pt Temp ABG pO2 at Pt Temp ABG HCO3 VBG pH 7.44 H VBG HCO3 Sodium Chloride Carbon Dioxide BUN Fasting Glucose Troponin I High Sens B-Natriuretic Peptide 335 H Urine Protein Urine Blood Urine Nitrite Ur Leukocyte Esterase Urine RBC Urine WBC 05/04/22 05/04/22 05/05/22 14:28 14:30 07:04 RBC Hct 47.3 H MCH 26.7 L RDW 16.4 H MPV 8.7 L Immature Gran % (Auto) Neut % (Auto) Lymph % (Auto) [place] % (Auto) Lymph # (Auto) Abs Immat Gran (auto) ABG pCO2 at Pt Temp ABG pO2 at Pt Temp ABG HCO3 VBG pH 7.52 H VBG HCO3 30 H Sodium 134 L Chloride Carbon Dioxide BUN 17 H Fasting Glucose Troponin I High Sens B-Natriuretic Peptide Urine Protein Urine Blood Urine Nitrite Ur Leukocyte Esterase Urine RBC Urine WBC 05/05/22 07:04 RBC Hct MCH RDW MPV Immature Gran % (Auto) Neut % (Auto) Lymph % (Auto) [place] % (Auto) Lymph # (Auto) Abs Immat Gran (auto) ABG pCO2 at Pt Temp ABG pO2 at Pt Temp ABG HCO3 VBG pH VBG HCO3 Sodium Chloride Carbon Dioxide 30 H BUN Fasting Glucose 116 H Troponin I High Sens B-Natriuretic Peptide Urine Protein Urine Blood Urine Nitrite Ur Leukocyte Esterase Urine RBC Urine WBC Microbiology: Microbiology 05/03/22 13:06 Blood - Venous Blood Culture - Preliminary No growth after 48 hours. 05/03/22 13:06 Blood - Venous Blood Culture - Preliminary No growth after 48 hours. 05/03/22 Unknown Urine clean catch - Urine [place] top Urine Culture - Final Assessment and Plan (1) Acute exacerbation of chronic obstructive pulmonary disease: Status: Acute (2) Respiratory failure: Status: Acute Plan Impression: 77-year-old lady with underlying likely COPD admitted with acute hypoxic respiratory failure out of proportion with possible COPD exacerbation. CT angio chest negative for large pulmonary emboli. Patient with some improvement on systemic glucocorticoids and nebulized bronchodilators. Recommendations: Agree with continuation of systemic glucocorticoids and nebulized bronchodilators. However, patient also with underlying history of coronary artery disease and edema. Suggest evaluation with 2D echocardiogram and empiric diuresis. Time Spent With Patient Time: Total time managing care of this patient today ____ minutes. Procedures Date of Service Date of Service: 05/05/22
[2022-05-05] MEDS: Furosemide 40 MG/4 ML VIAL IVPUSH (15:30)
[2022-05-06] VITALS (12 sets, daily range): BP systolic 153–192; BP diastolic 77–90; PULSE 85–111; RESP 16–28; TEMP 36.2–37.1; O2SAT 2–96
[2022-05-06] MEDS: 0.9 % Sodium Chloride Flush 3 ML SYRINGE IVFLUSH (00:06)
[2022-05-06] MEDS: Omeprazole 40 MG CAPSULE.DR PO (06:36)
[2022-05-06] MEDS: methylPREDNISolone Sod Succ 125 MG/2 ML VIAL 60 MG IVPUSH ×2 (06:36→16:33)
[2022-05-06 07:50] LABS: Anion Gap 13 (12-20); Blood Urea Nitrogen 24 mg/dL (9-16); Calcium 9.6 mg/dL (8.4-10.2); Carbon Dioxide 36 mmol/L (22-29); Chloride 96 mmol/L (96-108); Creatinine Clr Calc Pharmacy 82.5; Estimated Glomerular Filt Rate > 60; Glucose Random 109 mg/dL (60-115); Potassium 4.3 mmol/L (3.3-5.1); Sodium 141 mmol/L (135-145)
[2022-05-06 08:11] LABS: B Type Natriuretic Peptide < 10 pg/mL (<100)
[2022-05-06] MEDS: Vitamin E (Dl,Tocopheryl Acet) 180 MG (400 UNIT) CAPSULE PO (08:24)
[2022-05-06] MEDS: Cholecalciferol (Vitamin D3) 25 MCG TABLET PO (08:24)
[2022-05-06] MEDS: Cyanocobalamin (Vitamin B-12) 500 MCG TABLET PO (08:24)
[2022-05-06 08:47] LABS: Venous Blood Gas Refer to POC result
[2022-05-06 08:50] LABS: VBG HCO3 36 mmol/L (22-26); VBG pCO2 47 mmHg; VBG pH 7.49 (7.32-7.43); VBG pO2 39 mmHg
[2022-05-06] MEDS: Docusate Sodium 100 MG CAPSULE PO ×2 (09:34→20:33)
[2022-05-06] MEDS: Furosemide 20 MG/2 ML VIAL IVPUSH (11:18)
[2022-05-06] MEDS: amLODIPine Besylate 5 MG TABLET PO (11:18)
[2022-05-06] MEDS: Enoxaparin Sodium 40 MG/0.4 ML SYRINGE SUBCUT (12:15)
[2022-05-06] MEDS: cefTRIAXone sodium 1 GM in 0.9 % Sodium Chloride 50 ML IV (12:15)
[2022-05-06] MEDS: Lactulose 20 GM/30 ML SOLUTION PO ×2 (15:28→20:33)
[2022-05-07] VITALS (7 sets, daily range): BP systolic 101–172; BP diastolic 60–84; PULSE 61–124; RESP 14–25; TEMP 36.5–37; O2SAT 88–97
[2022-05-07] MEDS: 0.9 % Sodium Chloride Flush 3 ML SYRINGE IVFLUSH ×2 (00:23→08:17)
[2022-05-07] MEDS: methylPREDNISolone Sod Succ 125 MG/2 ML VIAL 60 MG IVPUSH (06:06)
[2022-05-07] MEDS: Omeprazole 40 MG CAPSULE.DR PO (06:07)
[2022-05-07] MEDS: amLODIPine Besylate 5 MG TABLET PO (08:17)
[2022-05-07] MEDS: Lactulose 20 GM/30 ML SOLUTION PO (08:17)
[2022-05-07] MEDS: Docusate Sodium 100 MG CAPSULE PO (08:18)
[2022-05-07] MEDS: Vitamin E (Dl,Tocopheryl Acet) 180 MG (400 UNIT) CAPSULE PO (08:18)
[2022-05-07] MEDS: Cyanocobalamin (Vitamin B-12) 500 MCG TABLET PO (08:18)
[2022-05-07] MEDS: Cholecalciferol (Vitamin D3) 25 MCG TABLET PO (08:18)
--- NOTE | 2022-05-07 12:54 | P.DS_ITS ---
DS: Providers Provider Date of Service: 05/07/22 Date of admission: 05/03/22 11:55 Primary care physician: None Physician Consults: 05/05/22 10:33 Consult to Pulmonology Routine Consulting Provider: Capo Costa Reason for consultation: hypoxi failure, COPD on high flow for eval and rec DS: Diagnosis Discharge Diagnosis (1) Acute exacerbation of chronic obstructive pulmonary disease: Status: Acute (2) Respiratory failure: Status: Acute DS: Summary Hospital Course Hospital Course: Admission note HPI 77-year-old female with history of COPD, GERD presented to the ED via EMS early this morning for evaluation of shortness of breath and hypoxia.? She tells me for the last 2 weeks she has been noticing her pulse oximetry initially in the 70s but has been as low as the 50s in the last couple days.? She has also had a productive cough.? She is not oxygen dependent at home and tells me she has no PCP or outpatient medical follow-up.? She also tells me she has not been eating or drinking much due to uncontrolled GERD symptoms despite taking 40 mg omeprazole.? However she does tell me that she has been drinking primarily coffee and juice though has been trying to eat more bland foods.? In the ED, she desatted to 55% and was placed on high-flow oxygen via nasal cannula maintaining oximetry around 88%.? She denies any history of hypertension but has had blood pressures in the ED as high as 229/89.? Denies any headaches, chest pain, lightheadedness.? Denies any sick contacts.? No fevers, chills, abdominal pain, nausea, vomiting, diarrhea, palpitations.? No leukocytosis.? Creatinine 0.75, BUN 18, sodium 130, potassium 4.9, chloride 89, CO2 29, glucose 123.? Initial troponin 31.8, repeat pending.? ABG with pH of 7.35, pCO2 66, PO2 68, HC03 37, O2 saturation 88%.? UA with 1+ leukocytes, positive nitrites, 1+ blood, 3+ protein, positive urinary sediment, 4+ bacteria.? Negative COVID-19, influenza, RSV.? CXR is negative for any focal consolidation but does show mildly coarsened appearance of the interstitium likely reflecting a chronic restrictive airway disease.? In the ED, has been treated with 125 mg IV methylprednisolone, 10 mg IV labetalol with improvement in blood pressure to 189/81.? Also given albuterol updraft.? Patient to be admitted for acute hypoxemic hypercarbic respiratory failure with COPD exacerbation. Hospital course The patient was admitted to the hospital for treatment of acute hypoxemic hypercapnic respiratory failure with respiratory acidosis-secondary to COPD exacerbation complicated by metabolic encephalopathy. The patient was treated with IV steroids, bronchodilator nebulizers, empiric antibiotic as respiratory panel came back negative. Her mental status improved as oxygenation improved. She required high flow oxygen with significant hypoxia. Evaluated by grocery deliverer who recommended to continue current treatment and start gentle diuresis. Echo was checked showing mitral valve calcifications and moderate to severe stenosis. Patient oxygen requirement decreased significantly to 2 L with ambulation as She was evaluated for home oxygen. Pulmonology recommended pulmonary rehab but the patient preferred to go back home. Start small dose Lasix every other day Continue prednisone as prescribed Use inhaler as needed for shortness of breath To use your home nebulizer every 4 hours for the next 3 days Start amlodipine and losartan for blood pressure control, record 1 week readings of blood pressure at home and reported to your PCP for further adjustments of medications. To schedule a visit with Cardiology as outpatient for evaluation of mitral calcification and stenosis Time Spent with Patient Time attestation: Total time managing care of this patient today ____ minutes. Discharge coordination time: Greater than 30 minutes Quality: Safe Use of Opioids Does Pt have an Active Cancer Diagnosis on the Problem List?: No Quality: Stroke Does the patient have a stroke diagnosis?: No Physical Exam Vital Signs: Vital Signs: Last Vital Signs Temp 98.6 F 05/07/22 12:00 Pulse 115 H 05/07/22 12:00 Resp 14 05/07/22 12:00 BP 172/70 H 05/07/22 12:00 Pulse Ox 92 05/07/22 12:00 O2 Del Method 05/07/22 12:00 O2 Flow Rate 3 05/07/22 07:58 FiO2 100 05/06/22 04:00 Oxygen Flow Rate 2 05/03/22 06:57 BMI result Body Mass Index 41.8 Const: Other: Constitutional : Awake, interactive, not in distress Neck : Normal inspection, Supple Cardiovascular : RRR, no JVP, no lower extremity edema Respiratory : Fair bilateral air entry, no crackles, no wheezes Gastrointestinal: soft, lax, Normal bowel sounds, Non tender Skin : Warm, Dry Neurological : Alert & oriented x3, No focal deficit DS: Data Data Completed and Pending Labs on day of discharge: Preliminary micro results at discharge 05/03/22 13:06 Blood Culture - Preliminary Blood - Venous No growth after 48 hours. 05/03/22 13:06 Blood Culture - Preliminary Blood - Venous No growth after 48 hours. Imaging Chest x-ray: Radiologist's impression: ITS Impressions Chest X-Ray 05/03/22 06:30 IMPRESSION: No focal consolidation. Mildly coarsened appearance of the interstitium may reflect acute or chronic airways disease. Chest CTA 05/03/22 15:20 IMPRESSION: 1. No evidence of central pulmonary embolus. Assessment is otherwise nondiagnostic for reliable detection of pulmonary emboli due to suboptimal contrast opacification. 2. Mildly increased septal markings and diffuse mild groundglass opacities scattered throughout both lungs, nonspecific. Correlate clinically with signs or symptoms of atypical pneumonia or pneumonitis. Pulmonary edema is felt unlikely given the absence of effusions. 3. Small Patchy nodular consolidative opacity in the right lung apex, possibly infectious or inflammatory. Would recommend a follow-up CT in 3 months to confirm resolution. 4. Extensive coronary artery vascular calcifications. VTE: indeterminate Chest X-Ray 05/06/22 08:25 IMPRESSION: No acute finding. Persistent right upper lung mass when correlated with CT from 05/03/2022. Malignancy needs to be considered. PET/CT would be recommended to further evaluate Discharge Plan Discharge Anticipated Discharge Date/Time: 05/07/22 12:40 Patient Disposition: Home Health Service Discharge Diagnosis: Acute COPD exacerbation Hypoxic respiratory failure Referrals: Physician,None [Primary Care Provider] - 1 Week Amol Robert MD [Physician] - 2 Weeks (Mitral valve calcification and stenosis (mod-severe) for your kind eval. ) Discharge Medications: New amlodipine 5 mg Tablet 5 mg PO DAILY Qty: 30 0RF Protocol: Hold for SBP< HOLD for SBP < : 90 losartan 25 mg tablet 25 mg PO DAILY Qty: 30 0RF prednisone 20 mg tablet 40 mg PO DAILY Qty: 6 0RF albuterol sulfate 90 mcg/actuation HFA aerosol inhaler 2 puff inhalation Q6H PRN (Reason: shortness of breath or wheezing) Qty: 6.7 0RF furosemide 20 mg tablet 20 mg PO Q OTHER DAY Qty: 14 0RF Continued cyanocobalamin (vitamin B-12) 500 mcg Tablet 500 mcg PO DAILY omeprazole 20 mg Capsule,Delayed Release(Dr/Ec) 40 mg PO DAILY vitamin E 268 mg (400 unit) Capsule 268 mg PO DAILY cholecalciferol (vitamin D3) [Vitamin D3] 25 mcg (1,000 unit) Tablet 25 mcg PO DAILY Discharge Orders: Discharge Order (Routine); Ordered 05/07/22 Ordered By: Emanuel Vidal Diet: Advance to usual diet Activity on Discharge: As tolerated Stand Alone Forms: Patient Portal Discharge page Care Plan Goals: Read below Health Concerns: Read below Plan of Treatment: Read below Assessment: You were admitted to the hospital for evaluation of difficulty breathing. Found to be requiring oxygen supplement. Treated with IV steroids, nebulizers and oxygen supplement as you were evaluated by lung doctor. Responded well to the addition of water pill with decreased oxygen requirement. You were evaluated for home oxygen and required 2 L all the time. Your blood pressure was noted to be significantly elevated. You were started on blood pressure medication during the hospital stay. Start small dose Lasix every other day Continue prednisone as prescribed Use inhaler as needed for shortness of breath To use your home nebulizer every 4 hours for the next 3 days Start amlodipine and losartan for blood pressure control, record 1 week readings of blood pressure at home and reported to your PCP for further adjustments of medications. Discharge Date/Time: 05/07/22 15:33
--- NOTE | 2022-05-07 13:03 | W.MHC.F2F ---
Service Date Service Date: 05/07/22 Encounter Date of encounter: 05/07/22 Reasons for Services Signs and symptoms assessed: New home oxygen , nebulizer machine COPD exacerbation Reason for nursing home: medication management and teach disease management Reason for physical therapy: home safety and mobility and therapeutic exercises Homebound: Leaving the home is medically contraindicated at this time without the asist of a device and/or another person due th the listed conditions above and below. Reason homebound: unsteady gait / fall risk Certification: Based on the above findings, I certify that this patient is confined to the home and needs intermittent nursing home care, physical therapy and/or speech therapy, or continues to need occupational therapy. The patient is under my care, and I have initiated the establishment of the plan of care. The patient will be followed by a physician who will periodically review the plan of care. Time Spent With Patient Time: Total time managing care of this patient today ____ minutes.
--- NOTE | 2022-05-07 13:12 | MHC.CM.PN ---
Patient has been medically cleared for dc to home today. Patient does not have a PCP and will therefor not qualify for VNA (MD aware and per MD's request, has provided Patient with a list of area PCPs and their contact info). IMM to be addressed with Patient.
--- NOTE | 2022-05-07 13:32 | MHC.CM.PN ---
CM has arranged for a 2:30 LYFT pickler helper to take Patient home; RN is aware.
--- NOTE | 2022-05-07 13:56 | MHC.CM.PN ---
RN came to CM explaining that Patient is on O2 and a high fall risk and that RN is not comfortable with Patient going home via LYFT. Patient will dc to home today at 3PM via [facility].
[2022-05-07] MEDS: Losartan Potassium 25 MG TABLET PO (14:15)
[2022-05-07] MEDS: Enoxaparin Sodium 40 MG/0.4 ML SYRINGE SUBCUT (14:15)
== END 2022-05-07 15:33 | disposition home health service (06) | DRG 190 ==
LOC: HO.ED 08:57 → HO.EDOVER 13:18 → HO.IMC 13:40
PROVIDERS: Internal Medicine; Admitting Provider Physician Assistant; Emergency Provider Emergency Medicine; Visit Provider Student in an Organized Health Care Education/Training Program
DX: J44.1 Chronic obstructive pulmonary disease with (acute) exacerbation (principal); G93.41 Metabolic encephalopathy; J96.01 Acute respiratory failure with hypoxia; J96.02 Acute respiratory failure with hypercapnia; N39.0 Urinary tract infection, site not specified; Z68.41 Body mass index [BMI] 40.0-44.9, adult; E87.1 Hypo-osmolality and hyponatremia; I25.10 Atherosclerotic heart disease of native coronary artery without angina pectoris; Z95.5 Presence of coronary angioplasty implant and graft; I10 Essential (primary) hypertension; E66.01 Morbid (severe) obesity due to excess calories; Z66 Do not resuscitate; K21.9 Gastro-esophageal reflux disease without esophagitis; Z20.822 Contact with and (suspected) exposure to COVID-19; Z87.891 Personal history of nicotine dependence; Z79.899 Other long term (current) drug therapy
CPT/HCPCS: 0241U; 36415; 71045; 71275; 80048; 80053; 81001; 82803; 83880; 83935; 84300; 84484; 85025; 85027; 85610; 87040; 87086; 87633; 87635; 93005; 93306; 94640; 97162; 99285; J0456; J0696; J1650; J1940; J2930; Q9957; Q9967

== ENCOUNTER 2022-05-15 03:15 | Inpatient (IN) | payer MEDICARE, SELFPAY ==
[2022-05-15] VITALS (15 sets, daily range): BP systolic 95–216; BP diastolic 42–84; PULSE 80–121; RESP 16–32; TEMP 36.3–36.7; O2SAT 85–96; BMI 36.3
--- NOTE | ~2022-05-15 | CT_ITS ---
EXAMINATION: CT CHEST WITHOUT CONTRAST CLINICAL INFORMATION: Shortness of breath, tachypnea, hypoxia COMPARISON: 05/03/2022 TECHNIQUE: Multidetector volumetric CT imaging of the chest was done. Axial MIP volume rendering provided. Sagittal and coronal reformatted images were obtained. This CT examination was performed using dose optimization techniques as appropriate, variously including the following: *Automated exposure control *Adjustment of mA and/or kV according to patient size (this includes techniques or standardized protocols for targeted exams where dose is matched to indication/reason for exam; i.e. extremities or head) *Use of iterative reconstruction technique DLP: 339 mGy-cm FINDINGS: LUNGS: Focal region of irregularly shaped opacity in the right lung apex is stable in appearance since 05/03/2022 (image 77/502, approximately 2.1 x 1.4 cm in size with abutting linear opacity). There appears to be slight interval improvement in the nearby smaller groundglass foci compared to prior. Additional multiple bilateral scattered groundglass foci with mid to upper lung predominance are without significant change. MEDIASTINUM: Bilateral thyroid calcifications noted. There are subcentimeter mediastinal lymph nodes within the range of normal variation. Cardiac size is within normal limits; no pericardial effusion. There is atherosclerotic calcification along the aorta. CORONARY ARTERY CALCIFICATION: Present. PLEURA: There is no pleural effusion. No pleural mass or thickening. AXILLA: No lymphadenopathy. UPPER ABDOMEN: Left renal cyst noted; no follow-up recommended. OSSEOUS STRUCTURES: Degenerative changes are noted in the spine. CT/CT chest wo IV con IMPRESSION: 1. Focal region of irregularly shaped opacity in the right lung apex is stable since 05/03/2022. Follow-up CT in approximately 3 months is recommended to assess for resolution, as this could represent infectious/inflammatory change, scarring, or neoplasm. If clinically warranted, evaluation with PET/CT may be helpful. 2. Slight interval improvement in the nearby smaller groundglass foci in the right upper lobe. 3. Additional scattered groundglass foci bilaterally are without significant change. Component of underlying chronic lung disease cannot be excluded 4. Coronary artery calcifications. Correlation with cardiac risk factors is recommended.
--- NOTE | ~2022-05-15 | XR_ITS ---
EXAMINATION: XR CHEST CLINICAL INFORMATION: Shortness of breath COMPARISON: 05/06/2022 TECHNIQUE: Frontal view of the chest was obtained. FINDINGS: Lung volumes are symmetric. Focal patchy opacity identified in the right upper lung on recent CT is not adequately delineated radiographically. No additional consolidation is seen. No evidence of pneumothorax, pleural effusion, or pulmonary edema. The cardiomediastinal contour is unremarkable. Degenerative changes are noted in the spine and shoulders. XR/XR chest 1V IMPRESSION: Focal patchy opacity identified in the right upper lung on recent CT is not adequately delineated radiographically. Otherwise no acute cardiopulmonary findings.
--- NOTE | 2022-05-15 03:27 | ECG_ITS ---
Test Reason : SOB Blood Pressure : / mmHG Vent. Rate : 101 BPM Atrial Rate : 101 BPM P-R Int : 156 ms QRS Dur : 088 ms QT Int : 384 ms P-R-T Axes : 079 006 092 degrees QTc Int : 497 ms Sinus tachycardia Biatrial enlargement Septal infarct , age undetermined ST & T wave abnormality, consider lateral ischemia Abnormal ECG When compared to the previous EKG of No significant changes seen Referred By: Nidhi Gu Electronically Signed By:JESUS LANDA MD
--- NOTE | 2022-05-15 03:28 | ED.SOB ---
HPI - SOB/Dyspnea General Chief Complaint: Dyspnea Stated Complaint: difficuilty Breathing Time Seen by Provider: 05/15/22 03:27 Source: patient Mode of arrival: EMS History of Present Illness HPI Narrative: 77-year-old female who presents via EMS for increased shortness of breath and sputum production since yesterday. Patient does use oxygen at home as needed and states she had to place herself on 4 L and noted that her oxygenation was 84% and did not get any relief when she attempted to give herself albuterol. EMS increased nasal cannula 6 L and noted that oxygenation was at 90%. She denies chest pain or palpitations and denies any fever or chills. Related Data Home Medications Medication Instructions Recorded Confirmed cholecalciferol (vitamin D3) 25 25 mcg PO DAILY 05/03/22 05/03/22 mcg (1,000 unit) tablet (Vitamin D3) cyanocobalamin (vitamin B-12) 500 500 mcg PO DAILY 05/03/22 05/03/22 mcg tablet omeprazole 20 mg capsule,delayed 40 mg PO DAILY 05/03/22 05/03/22 release vitamin E 268 mg (400 unit) capsule 268 mg PO DAILY 05/03/22 05/03/22 albuterol sulfate 90 mcg/actuation 2 puff inhalation Q6H PRN wheezing 05/15/22 05/15/22 aerosol inhaler amlodipine 5 mg tablet 1 tab PO DAILY 05/15/22 05/15/22 furosemide 20 mg tablet 1 tab PO Q OTHER DAY 05/15/22 05/15/22 losartan 25 mg tablet 1 tab PO DAILY 05/15/22 05/15/22 prednisone 20 mg tablet mg PO 05/15/22 Previous Rx's Medication Instructions Recorded albuterol sulfate 90 mcg/actuation 2 puff inhalation Q6H PRN 05/07/22 aerosol inhaler shortness of breath or wheezing #6.7 grams amlodipine 5 mg tablet 5 mg PO DAILY #30 tabs 05/07/22 furosemide 20 mg tablet 20 mg PO Q OTHER DAY #14 tabs 05/07/22 losartan 25 mg tablet 25 mg PO DAILY #30 tabs 05/07/22 prednisone 20 mg tablet 40 mg PO DAILY #6 tabs 05/07/22 Allergies Allergy/AdvReac Type Severity Reaction Status Date / Time No Known Allergies Allergy Verified 05/15/22 03:55 Review of Systems Review of Systems: Pertinent positives and negatives as stated in [facility] Past Medical History Source: nursing notes reviewed Medical History COPD (chronic obstructive pulmonary disease) Essential hypertension GERD (gastroesophageal reflux disease) Social History Social History Household Members: None Housing: Apartment Do you presently have visiting nurse or other home services: No Alcohol intake: never Patient Tobacco Use Status: Former Tobacco user Tobacco use type: Cigarette Smoked in Last 30 Days: No e-Cigarette/Vaping Use: Former Use Second Hand Smoke Exposure: No Use of substances other than those prescribed or required for medical reasons: No Advance Directives: Yes Advance Directives on File: Yes Advance Directives Date on File: 05/09/22 service: No Physical Exam Vital Signs: Vital Signs: Last Vital Signs Temp 98.0 F 05/15/22 03:24 Pulse 121 H 05/15/22 05:42 Resp 22 H 05/15/22 05:42 BP 110/55 L 05/15/22 05:42 Pulse Ox 85 L 05/15/22 05:42 O2 Del Method 05/15/22 05:42 O2 Flow Rate 5 05/15/22 05:42 Oxygen Flow Rate 3 05/15/22 03:24 BMI result Body Mass Index 36.3 VITAL SIGNS: Reviewed. GENERAL: Well developed, well nourished, in no acute distress. HEAD: Normocephalic/atraumatic EYES: PERRLA, EOMI EARS: Ext canals without abnormality OROPHARYNX: no oral lesions noted, posterior pharynx clear LUNGS: Good inspiratory effort with decreased breath sounds and crackles with expiratory wheeze, tachypnea is present with increased work of breathing. SpO2<92> on 6 L nasal cannula CARDIOVASCULAR: Tachycardic rate and rhythm without noted murmurs, no JVD or lower extremity edema. ABDOMEN: Soft, non-tender, non-distended with bowel sounds. MUSCULOSKELETAL: No tenderness, deformities, or effusions noted on gross inspection. EXTREMITIES: No cyanosis, clubbing or edema. SKIN: Inspection of the skin reveals no rashes NEUROLOGIC: Alert and oriented x 4. Strength and sensation to light touch were grossly intact x 4. Medications Administered Discontinued Medications Generic Name Dose Route Start Last Admin Trade Name Yvonq PRN Reason Stop Dose Admin Albuterol Sulfate 10 mg/ 0 mg 05/15/22 03:28 05/15/22 03:42 Ipratropium [place] 0.5 mg INHALE 05/15/22 03:29 1 each ONCE ONE Administration Albuterol Sulfate 10 mg/ 0 mg 05/15/22 04:03 05/15/22 05:31 Ipratropium [place] 0.5 mg INHALE 05/15/22 04:04 1 each ONCE ONE Administration Cefepime HCl 1 gm/ Sodium 50 mls @ 100 mls/hr 05/15/22 05:07 05/15/22 05:33 Chloride IV 05/15/22 05:36 100 mls/hr ONCE ONE Administration Methylprednisolone Sodium Succinate 125 mg 05/15/22 03:27 05/15/22 03:51 Methylprednisolone Sod Succ 125 Mg/2 Ml Vial IVPUSH 05/15/22 03:28 125 mg ONCE ONE Administration Medical Decision Making Medical Decision Making [facility] Narrative: 0345: 77-year-old female with possible chronic lung disease versus CHF contributing to her shortness of breath. Patient is otherwise afebrile. Basic labs, DuoNeb, steroid initially given. Review of all investigations and my interpretation is patient has COPD exacerbation, received IV antibiotics, DuoNebs, and steroids. She is requiring more supplemental oxygen than her normal amount. Differential Diagnosis Please see discussion above Consult Healthcare Provider Management of the patient was discussed with: Hospitalist [phone]: I discussed the case with the inpatient hospitalist who accepts admission. Lab Data Please see the discussion above 05/15/22 03:42 05/15/22 03:42 Labs: Lab Results 05/15/22 05/15/22 05/15/22 Range/Units 03:29 03:41 03:41 WBC (4.8-10.8) X10*3/uL RBC (4.20-5.50) X10*6/uL Hgb (12.0-16.0) g/dl Hct (37.0-47.0) % MCV (80.0-98.0) fL MCH (27.0-33.0) pg MCHC (31.0-35.0) g/dl RDW (11.0-16.0) % Plt Count (160-400) X10*3/uL MPV (9.4-12.3) fL Immature Gran % (Auto) (0.0-0.4) % Neut % (Auto) (45-73) % Lymph % (Auto) (20-40) % [place] % (Auto) (2-11) % Eos % (Auto) (0-4) % Baso % (Auto) (0-2) % Lymph # (Auto) (1.2-4.9) X10*3/uL [place] # (Auto) (0.1-1.2) X10*3/uL Eos # (Auto) (0.0-0.4) X10*3/uL Baso # (Auto) (0.0-0.2) X10*3/uL Abs Immat Gran (auto) (0.00-0.03) X10*3/uL Absolute Neuts (auto) (2.0-8.3) x10*3/uL Absolute Nucleated RBC (0.0-0.012) X10*3/uL Nucleated RBC % (auto) (0.0-0.2) /100WBC PT (10.0-13.1) SEC INR (0.9-1.1) VBG pH (7.32-7.43) VBG pCO2 mmHg VBG pO2 mmHg VBG HCO3 (22-26) mmol/L VBG O2 Saturation % VBG Base Excess mmol/L Sodium (135-145) mmol/L Potassium (3.3-5.1) mmol/L Chloride (96-108) mmol/L Carbon Dioxide (22-29) mmol/L Anion Gap (12-20) BUN (9-16) mg/dL Creatinine (0.5-1.4) mg/dL Estim Creat Clear Calc Estimated GFR POC Glucose 123 H (60-115) mg/dL Random Glucose (60-115) mg/dL Lactic Acid 1.0 (0.5-2.0) mmol/L Calcium (8.4-10.2) mg/dL Total Bilirubin (0.0-1.0) mg/dL AST (5-31) U/L ALT (0-31) U/L Alkaline Phosphatase (39-117) U/L Troponin I High Sens 8.7 D (<3.5-17.0) ng/L B-Natriuretic Peptide (<100) pg/mL Total Protein (6.5-8.0) g/dL Albumin (3.5-5.0) g/dL 05/15/22 05/15/22 05/15/22 Range/Units 03:41 03:42 03:42 WBC 8.8 (4.8-10.8) X10*3/uL RBC 5.68 H (4.20-5.50) X10*6/uL Hgb 15.0 (12.0-16.0) g/dl Hct 47.9 H (37.0-47.0) % MCV 84.3 (80.0-98.0) fL MCH 26.4 L (27.0-33.0) pg MCHC 31.3 (31.0-35.0) g/dl RDW 16.1 H (11.0-16.0) % Plt Count 241 (160-400) X10*3/uL MPV 9.0 L (9.4-12.3) fL Immature Gran % (Auto) 0.3 (0.0-0.4) % Neut % (Auto) 75.3 H (45-73) % Lymph % (Auto) 12.4 L (20-40) % [place] % (Auto) 9.8 (2-11) % Eos % (Auto) 2.0 (0-4) % Baso % (Auto) 0.2 (0-2) % Lymph # (Auto) 1.1 L (1.2-4.9) X10*3/uL [place] # (Auto) 0.9 (0.1-1.2) X10*3/uL Eos # (Auto) 0.2 (0.0-0.4) X10*3/uL Baso # (Auto) 0.0 (0.0-0.2) X10*3/uL Abs Immat Gran (auto) 0.03 (0.00-0.03) X10*3/uL Absolute Neuts (auto) 6.6 (2.0-8.3) x10*3/uL Absolute Nucleated RBC 0.000 (0.0-0.012) X10*3/uL Nucleated RBC % (auto) 0.0 (0.0-0.2) /100WBC PT 10.1 (10.0-13.1) SEC INR 0.9 (0.9-1.1) VBG pH (7.32-7.43) VBG pCO2 mmHg VBG pO2 mmHg VBG HCO3 (22-26) mmol/L VBG O2 Saturation % VBG Base Excess mmol/L Sodium (135-145) mmol/L Potassium (3.3-5.1) mmol/L Chloride (96-108) mmol/L Carbon Dioxide (22-29) mmol/L Anion Gap (12-20) BUN (9-16) mg/dL Creatinine (0.5-1.4) mg/dL Estim Creat Clear Calc Estimated GFR POC Glucose (60-115) mg/dL Random Glucose (60-115) mg/dL Lactic Acid (0.5-2.0) mmol/L Calcium (8.4-10.2) mg/dL Total Bilirubin (0.0-1.0) mg/dL AST (5-31) U/L ALT (0-31) U/L Alkaline Phosphatase (39-117) U/L Troponin I High Sens (<3.5-17.0) ng/L B-Natriuretic Peptide 85 (<100) pg/mL Total Protein (6.5-8.0) g/dL Albumin (3.5-5.0) g/dL 05/15/22 05/15/22 Range/Units 03:42 03:50 WBC (4.8-10.8) X10*3/uL RBC (4.20-5.50) X10*6/uL Hgb (12.0-16.0) g/dl Hct (37.0-47.0) % MCV (80.0-98.0) fL MCH (27.0-33.0) pg MCHC (31.0-35.0) g/dl RDW (11.0-16.0) % Plt Count (160-400) X10*3/uL MPV (9.4-12.3) fL Immature Gran % (Auto) (0.0-0.4) % Neut % (Auto) (45-73) % Lymph % (Auto) (20-40) % [place] % (Auto) (2-11) % Eos % (Auto) (0-4) % Baso % (Auto) (0-2) % Lymph # (Auto) (1.2-4.9) X10*3/uL [place] # (Auto) (0.1-1.2) X10*3/uL Eos # (Auto) (0.0-0.4) X10*3/uL Baso # (Auto) (0.0-0.2) X10*3/uL Abs Immat Gran (auto) (0.00-0.03) X10*3/uL Absolute Neuts (auto) (2.0-8.3) x10*3/uL Absolute Nucleated RBC (0.0-0.012) X10*3/uL Nucleated RBC % (auto) (0.0-0.2) /100WBC PT (10.0-13.1) SEC INR (0.9-1.1) VBG pH 7.46 H (7.32-7.43) VBG pCO2 51 mmHg VBG pO2 55 mmHg VBG HCO3 36 H (22-26) mmol/L VBG O2 Saturation 83.0 % VBG Base Excess 10.7 mmol/L Sodium 143 (135-145) mmol/L Potassium 4.2 (3.3-5.1) mmol/L Chloride 98 (96-108) mmol/L Carbon Dioxide 33 H (22-29) mmol/L Anion Gap 16 (12-20) BUN 13 (9-16) mg/dL Creatinine 0.72 (0.5-1.4) mg/dL Estim Creat Clear Calc 66.1 Estimated GFR > 60 POC Glucose (60-115) mg/dL Random Glucose 117 H (60-115) mg/dL Lactic Acid (0.5-2.0) mmol/L Calcium 8.9 D (8.4-10.2) mg/dL Total Bilirubin 0.6 (0.0-1.0) mg/dL AST 24 (5-31) U/L ALT 24 (0-31) U/L Alkaline Phosphatase 73 (39-117) U/L Troponin I High Sens (<3.5-17.0) ng/L B-Natriuretic Peptide (<100) pg/mL Total Protein 6.4 L (6.5-8.0) g/dL Albumin 3.5 (3.5-5.0) g/dL Independent Interpretation I performed an independent interpretation of an: EKG Interpretation: Sinus tachycardia, HR-101, no STEMI, WA/QRS are within normal limits, QTC mildly prolonged at 497. Radiology Impression Radiologist Impression: My interpretation is in agreement with radiology's impression of the imaging studies. External Record Review External record reviewed: Inpatient record, Outpatient record and Prior outpatient labs Chronic Conditions Patient?s care impacted by: Hypertension Critical Care Time Critical Care Time Critical Care Time: Yes Total Critical Care Time: 45 Attestation: I personally attest to this time spent taking care of the patient. Discharge Plan Discharge Clinical Impression: Acute exacerbation of chronic obstructive airways disease Patient Disposition: Admitted As Inpatient
[2022-05-15 03:51] LABS: MANUAL DIFF FLAG NO
[2022-05-15] MEDS: methylPREDNISolone Sod Succ 125 MG/2 ML VIAL IVPUSH (03:51)
[2022-05-15 03:52] LABS: Basophils Percent Auto 0.2 % (0-2); Eosinophils Absolute Auto 0.2 X10*3/uL (0.0-0.4); Hematocrit 47.9 % (37.0-47.0); Imm Gran Abs Auto 0.03 X10*3/uL (0.00-0.03); Imm Gran Pct Auto 0.3 % (0.0-0.4); Lymphocytes Absolute Auto 1.1 X10*3/uL (1.2-4.9); Lymphocytes Percent Auto 12.4 % (20-40); Mean Corpuscular HGB Conc 31.3 g/dl (31.0-35.0); Mean Corpuscular Hemoglobin 26.4 pg (27.0-33.0); Mean Corpuscular Volume 84.3 fL (80.0-98.0); Monocytes Absolute Auto 0.9 X10*3/uL (0.1-1.2); Monocytes Percent Auto 9.8 % (2-11); Neutrophils Absolute Auto 6.6 x10*3/uL (2.0-8.3); Neutrophils Percent Auto 75.3 % (45-73); Platelet Count 241 X10*3/uL (160-400); Red Blood Count 5.68 X10*6/uL (4.20-5.50); Red Cell Distribution Width 16.1 % (11.0-16.0); White Blood Count 8.8 X10*3/uL (4.8-10.8)
[2022-05-15 03:56] LABS: Venous Blood Gas Refer to POC result
[2022-05-15 03:57] LABS: VBG Base Excess 10.7 mmol/L; VBG HCO3 36 mmol/L (22-26); VBG pCO2 51 mmHg; VBG pH 7.46 (7.32-7.43); VBG pO2 55 mmHg
[2022-05-15 03:58] LABS: INTERNATIONAL NORM RATIO 0.9 (0.9-1.1); Prothrombin Time 10.1 SEC (10.0-13.1)
[2022-05-15 04:03] LABS: Glucose, Whole Blood 123 mg/dL (60-115)
[2022-05-15 04:14] LABS: B Type Natriuretic Peptide 85 pg/mL (<100); Troponin-I High Sensitivity 8.7 ng/L (<3.5-17.0)
[2022-05-15 04:18] LABS: Alanine Aminotransferase 24 U/L (0-31); Albumin Level 3.5 g/dL (3.5-5.0); Alkaline Phosphatase 73 U/L (39-117); Anion Gap 16 (12-20); Aspartate Amino Transferase 24 U/L (5-31); Bilirubin Total 0.6 mg/dL (0.0-1.0); Blood Urea Nitrogen 13 mg/dL (9-16); Calcium 8.9 mg/dL (8.4-10.2); Carbon Dioxide 33 mmol/L (22-29); Chloride 98 mmol/L (96-108); Creatinine Clr Calc Pharmacy 66.1; Estimated Glomerular Filt Rate > 60; Glucose Random 117 mg/dL (60-115); Potassium 4.2 mmol/L (3.3-5.1); Sodium 143 mmol/L (135-145); Total Protein 6.4 g/dL (6.5-8.0)
--- NOTE | 2022-05-15 04:30 | PC.NURSE ---
Pt A&Ox4, reports monitoring destat o2 at home, has PRN o2 with no improvement. Denies any CP, palpitations or pain. No retractions or labored breathing noted, denies N/V/D. Pt reports productive cough, white sputum. Lung souds wheezy. IV line placed, meds given as documented. o2 sat 90% on 4L. Respiratory therapist at bedside.
--- NOTE | 2022-05-15 05:10 | PC.NURSE ---
Pt A&Ox3, reports all over chronic body pain. Pt incontinent of urine, incontinent care provided. Pt buttocks area excoriated, red, with small open area, small amount of blood noted, barrier cream applied.
[2022-05-15] MEDS: cefEPime HCl 1 GM in 0.9 % Sodium Chloride 50 ML IV (05:33)
--- NOTE | 2022-05-15 05:51 | P.HPHOSP_ITS ---
History of Present Illness Date of Service: 05/15/22 Chief Complaint: Dyspnea This is a 77-year-old female with pertinent history of chronic hypoxemic respiratory failure due to COPD, gastroesophageal reflux disease, essential hypertension who presents to the emergency department for evaluation of dyspnea. Patient states she uses 2 L supplemental oxygen at home p.r.n.. Over the last two days, patient was wearing supplemental oxygen continuously and even increased it to 4L but she was still hypoxemic. She checked her home oxygen saturation and it was in the low 80s. Also complains of associated dyspnea and increased sputum production. No fevers or chills. Patient denies chest discomfort, palpitations, abdominal pain, changes in urinary or bowel habits. In the emergency department, patient was requiring 6 L supplemental oxygen Review of Systems Constitutional: Constitutional: Reports no additional constitutional complaints Cardiovascular: Cardiovascular: Reports dyspnea on exertion Respiratory: Respiratory: Reports cough, Reports excessive phlegm production and Reports dyspnea on exertion Genitourinary: Genitourinary: Reports no additional female genitourinary complaints Musculoskeletal: Musculoskeletal: Reports no additional musculoskeletal complaints [facility] Medical History COPD (chronic obstructive pulmonary disease) Essential hypertension GERD (gastroesophageal reflux disease) Pertinent family history: not significant due to age Social History Household Members: None Housing: Apartment Do you presently have visiting nurse or other home services: No Alcohol intake: never Patient Tobacco Use Status: Former Tobacco user Tobacco use type: Cigarette Smoked in Last 30 Days: No e-Cigarette/Vaping Use: Former Use Second Hand Smoke Exposure: No Use of substances other than those prescribed or required for medical reasons: No Advance Directives: Yes Advance Directives on File: Yes Advance Directives Date on File: 05/09/22 service: No Meds Allergies Allergy/AdvReac Type Severity Reaction Status Date / Time No Known Allergies Allergy Verified 05/15/22 03:55 Home Medications Medication Instructions Recorded Confirmed Last Taken Type cholecalciferol (vitamin D3) 25 25 mcg PO DAILY 05/03/22 05/03/22 05/02/22 History mcg (1,000 unit) tablet (Vitamin D3) cyanocobalamin (vitamin B-12) 500 500 mcg PO DAILY 05/03/22 05/03/22 05/02/22 History mcg tablet omeprazole 20 mg capsule,delayed 40 mg PO DAILY 05/03/22 05/03/22 05/02/22 History release vitamin E 268 mg (400 unit) capsule 268 mg PO DAILY 05/03/22 05/03/22 05/02/22 History albuterol sulfate 90 mcg/actuation 2 puff inhalation Q6H PRN wheezing 05/15/22 05/15/22 Unknown History aerosol inhaler amlodipine 5 mg tablet 1 tab PO DAILY 05/15/22 05/15/22 Unknown History furosemide 20 mg tablet 1 tab PO Q OTHER DAY 05/15/22 05/15/22 Unknown History losartan 25 mg tablet 1 tab PO DAILY 05/15/22 05/15/22 Unknown History prednisone 20 mg tablet mg PO 05/15/22 Unknown History Physical Exam Vital Signs and Narrative: Vital Signs: Last Vital Signs Temp 98.0 F 05/15/22 03:24 Pulse 121 H 05/15/22 05:42 Resp 22 H 05/15/22 05:42 BP 110/55 L 05/15/22 05:42 Pulse Ox 85 L 05/15/22 05:42 O2 Del Method 05/15/22 05:42 O2 Flow Rate 5 05/15/22 05:42 Oxygen Flow Rate 3 05/15/22 03:24 BMI result Body Mass Index 36.3 Elderly female lying in bed in mild distress on supplemental oxygen Neck supple, no JVD Regular rate and rhythm, S1-S2 heard bilateral wheezing appreciated right-sided crackles Abdomen soft nontender, no guarding, no rigidity Patient is awake, alert and oriented to self, place, time and person ; no focal motor deficit Psych: Normal mood No pedal edema Results Labs 05/15/22 03:42 05/15/22 03:42 Labs: Laboratory Results - last 24 hr 05/15/22 05/15/22 05/15/22 03:29 03:41 03:41 MCV MCH MCHC RDW Plt Count MPV Immature Gran % (Auto) Neut % (Auto) Lymph % (Auto) [place] % (Auto) Eos % (Auto) Baso % (Auto) Lymph # (Auto) [place] # (Auto) Eos # (Auto) Baso # (Auto) Abs Immat Gran (auto) Absolute Neuts (auto) Absolute Nucleated RBC Nucleated RBC % (auto) PT INR VBG pH VBG pCO2 VBG pO2 VBG HCO3 VBG O2 Saturation VBG Base Excess Anion Gap Estim Creat Clear Calc Estimated GFR POC Glucose 123 H Random Glucose Lactic Acid 1.0 Calcium Total Bilirubin AST ALT Alkaline Phosphatase Troponin I High Sens 8.7 D B-Natriuretic Peptide Total Protein Albumin 05/15/22 05/15/22 05/15/22 03:41 03:42 03:42 MCV 84.3 MCH 26.4 L MCHC 31.3 RDW 16.1 H Plt Count 241 MPV 9.0 L Immature Gran % (Auto) 0.3 Neut % (Auto) 75.3 H Lymph % (Auto) 12.4 L [place] % (Auto) 9.8 Eos % (Auto) 2.0 Baso % (Auto) 0.2 Lymph # (Auto) 1.1 L [place] # (Auto) 0.9 Eos # (Auto) 0.2 Baso # (Auto) 0.0 Abs Immat Gran (auto) 0.03 Absolute Neuts (auto) 6.6 Absolute Nucleated RBC 0.000 Nucleated RBC % (auto) 0.0 PT 10.1 INR 0.9 VBG pH VBG pCO2 VBG pO2 VBG HCO3 VBG O2 Saturation VBG Base Excess Anion Gap Estim Creat Clear Calc Estimated GFR POC Glucose Random Glucose Lactic Acid Calcium Total Bilirubin AST ALT Alkaline Phosphatase Troponin I High Sens B-Natriuretic Peptide 85 Total Protein Albumin 05/15/22 05/15/22 03:42 03:50 MCV MCH MCHC RDW Plt Count MPV Immature Gran % (Auto) Neut % (Auto) Lymph % (Auto) [place] % (Auto) Eos % (Auto) Baso % (Auto) Lymph # (Auto) [place] # (Auto) Eos # (Auto) Baso # (Auto) Abs Immat Gran (auto) Absolute Neuts (auto) Absolute Nucleated RBC Nucleated RBC % (auto) PT INR VBG pH 7.46 H VBG pCO2 51 VBG pO2 55 VBG HCO3 36 H VBG O2 Saturation 83.0 VBG Base Excess 10.7 Anion Gap 16 Estim Creat Clear Calc 66.1 Estimated GFR > 60 POC Glucose Random Glucose 117 H Lactic Acid Calcium 8.9 D Total Bilirubin 0.6 AST 24 ALT 24 Alkaline Phosphatase 73 Troponin I High Sens B-Natriuretic Peptide Total Protein 6.4 L Albumin 3.5 Imaging Radiologist's Impressions: Impressions Chest X-Ray 05/15/22 04:05 IMPRESSION: Focal patchy opacity identified in the right upper lung on recent CT is not adequately delineated radiographically. Otherwise no acute cardiopulmonary findings. Assessment and Plan (1) Hypoxia: Status: Acute Plan This is a 77-year-old female with pertinent history of chronic hypoxemic respiratory failure due to COPD, gastroesophageal reflux disease, essential hypertension who presents to the emergency department for evaluation of dyspnea. #. acute on chronic hypoxemic respiratory failure due to COPD exacerbation: Continue supplemental oxygen and wean as tolerated. Maintain oxygen saturation greater than 88%. Initiating azithromycin. Continue systemic steroids, schedu led and p.r.n. DuoNebs. Patient received cefepime in the ER, defer additional antibiotics as patient without leukocytosis and fever. Sputum culture pending. Noted focal region of opacity in right lung apex on CT scan , unclear etiology and significance. Consulting Pulm, appreciate assistance. #. essential hypertension: Continue home antihypertensives #. GERD: On PPI med rec pending DVT prophylaxis: Lovenox 40 mg daily Full code Cardiac diet Admit as inpatient and will require two night minimum hospital stay for supplemental oxygen Time Spent With Patient Time: Total time managing care of this patient today ____ minutes. Quality Stroke Does the patient have a stroke diagnosis?: No VTE Prior VTE?: No VTE Risk Level:: Medical - moderate - high VTE Device Contraindication: Treatment Not Indicated VTE Drug Contraindication: N/A - Med Ordered
[2022-05-15 06:03] LABS: COVID-19 Test Negative (Negative); IDNOW Serial# 16C4AD1C
[2022-05-15] MEDS: Enoxaparin Sodium 40 MG/0.4 ML SYRINGE SUBCUT (06:51)
[2022-05-15] MEDS: Azithromycin 500 MG in 0.9 % Sodium Chloride 250 ML 125 MG IV (06:51)
--- NOTE | 2022-05-15 07:24 | PM.EVENT ---
Event Note Date of Service: 05/15/22 Event Note: pt seen and examined lungs rhonchi, no wheeze, no accesory muscle use, clincal course reviewed. Med rec completed.. A/P per H and P from this morning. She feels much better, wean of O Time Spent With Patient Time: Total time managing care of this patient today ____ minutes.
--- NOTE | 2022-05-15 08:09 | PHA.MEDREC ---
Pharmacy Consult ? Medication Reconciliation Pharmacy has completed the medication reconciliation. Patient confirmed all medications. Reports she took her lasix yesterday and would be due again tomorrow. Heide Cook, LoretoD
[2022-05-15] MEDS: amLODIPine Besylate 5 MG TABLET PO (08:40)
[2022-05-15] MEDS: 0.9 % Sodium Chloride Flush 3 ML SYRINGE IVFLUSH ×2 (08:41→15:31)
[2022-05-15] MEDS: Losartan Potassium 25 MG TABLET PO (08:41)
--- NOTE | 2022-05-15 08:49 | PC.NURSE ---
pt is a/o x 4 no sob/juvenal speaks in full sentences. pt states that she is feeling better 02 hernadez. heart sounds - regular. abd soft and non-tender. no edema noted. dr. holcomb at bedside. pt aware of plan of care.
--- NOTE | 2022-05-15 10:38 | MHC.CM.PN ---
IMM DELIVERED PT LIVES ALONE IN AN APT. INDEPENDENT AT BASELINE, USES A CANE NEEDED.HAS 02 AT 2L NEEDED, VENDOR MARTHA. +HCP NO COVID VAX. PCP JORDAN ESPARZA. DP: HOME, NO SERVICES ANTICIPATED. OPEN TO [facility] IS SERVICES ARE REC. BLS TRANSPORT HOME. CM WILL CONTINUE TO FOLLOW.
[2022-05-15] MEDS: methylPREDNISolone Sod Succ 40 MG/ML VIAL IVPUSH (15:31)
[2022-05-16] MEDS: methylPREDNISolone Sod Succ 40 MG/ML VIAL IVPUSH (01:45)
[2022-05-16] MEDS: 0.9 % Sodium Chloride Flush 3 ML SYRINGE IVFLUSH (01:45)
[2022-05-16 03:22] VITALS: BP 183/80; PULSE 94; RESP 16; TEMP 36.4; O2SAT 94
[2022-05-16] MEDS: Enoxaparin Sodium 40 MG/0.4 ML SYRINGE SUBCUT (05:53)
[2022-05-16] MEDS: Azithromycin 500 MG in 0.9 % Sodium Chloride 250 ML 125 MG IV (05:54)
[2022-05-16 06:23] LABS: Basophils Percent Auto 0.2 % (0-2); Hematocrit 45.9 % (37.0-47.0); Hemoglobin 14.4 g/dl (12.0-16.0); Imm Gran Abs Auto 0.08 X10*3/uL (0.00-0.03); Imm Gran Pct Auto 0.5 % (0.0-0.4); Lymphocytes Absolute Auto 0.6 X10*3/uL (1.2-4.9); Lymphocytes Percent Auto 3.9 % (20-40); MANUAL DIFF FLAG SCAN; Mean Corpuscular HGB Conc 31.4 g/dl (31.0-35.0); Mean Corpuscular Hemoglobin 26.4 pg (27.0-33.0); Mean Corpuscular Volume 84.1 fL (80.0-98.0); Mean Platelet Volume 9.1 fL (9.4-12.3); Monocytes Absolute Auto 0.3 X10*3/uL (0.1-1.2); Monocytes Percent Auto 1.8 % (2-11); Neutrophils Absolute Auto 13.9 x10*3/uL (2.0-8.3); Neutrophils Percent Auto 93.6 % (45-73); Platelet Count 252 X10*3/uL (160-400); Red Blood Count 5.46 X10*6/uL (4.20-5.50); Red Cell Distribution Width 16.1 % (11.0-16.0); SCAN SMEAR FLAG 1; White Blood Count 14.9 X10*3/uL (4.8-10.8)
[2022-05-16 06:35] LABS: Anion Gap 13 (12-20); Blood Urea Nitrogen 18 mg/dL (9-16); Calcium 9.3 mg/dL (8.4-10.2); Carbon Dioxide 34 mmol/L (22-29); Chloride 99 mmol/L (96-108); Creatinine Clr Calc Pharmacy 72.2; Estimated Glomerular Filt Rate > 60; Glucose Random 130 mg/dL (60-115); Potassium 3.9 mmol/L (3.3-5.1); Sodium 142 mmol/L (135-145)
[2022-05-16 07:07] LABS: SLIDE REVIEW VERIFIED
[2022-05-16 07:34] VITALS: RESP 18; O2SAT 95
[2022-05-16 07:52] VITALS: BP 119/69; PULSE 93; RESP 18; TEMP 36.4; O2SAT 92
[2022-05-16] MEDS: amLODIPine Besylate 5 MG TABLET PO (07:54)
[2022-05-16] MEDS: Losartan Potassium 25 MG TABLET PO (07:54)
[2022-05-16] MEDS: Furosemide 20 MG TABLET PO (07:54)
--- NOTE | 2022-05-16 09:13 | PM.DS ---
DS: Providers Provider Date of Service: 05/16/22 Date of admission: 05/15/22 05:50 Primary care physician: NHAN Gerber Consults: 05/15/22 06:05 Consult to Pulmonology Routine Consulting Provider: Daija Laguna Reason for consultation: COPD exacerbation DS: Diagnosis Discharge Diagnosis (1) Hypoxia: Status: Acute DS: Summary Hospital Course Hospital Course: Chief Complaint: Dyspnea This is a 77-year-old female with pertinent history of chronic hypoxemic respiratory failure due to COPD, gastroesophageal reflux disease, essential hypertension who presents to the emergency department for evaluation of dyspnea. Patient states she uses 2 L supplemental oxygen at home p.r.n..? Over the last two days, patient was wearing supplemental oxygen continuously and even increased it to 4L but she was still hypoxemic.? She checked her home oxygen saturation and it was in the low 80s.? Also complains of associated dyspnea and increased sputum production.? No fevers or chills.? Patient denies chest discomfort, palpitations, abdominal pain, changes in urinary or bowel habits. In the emergency department, patient was requiring 6 L supplemental oxygen Hospital course: Patient presented with acute hypoxic respiratory failure on top of chronic respriatory failure with home supplementation oxygen . She was noted to be sifnficantly hypoxic with O2 of 85. CXR and CT sugest possible inflitrate,. Patient was treated with IV antibiotics and IV steroid, and bronchodialators by Nebs and made rapid improvement, presently afebrile, no hypoxia and she feels good andwill be discharged home. She will follow up with Pulmonology (Dr. Iverson) for follow up chest CT for Focal region of irregularly shaped opacity in the right lung apex is stable since 05/03/2022. Follow-up CT in approximately 3 months is Final diagnoses: Acute on chronic hypoxic respriatory failure due to COPD exacerbation Abnormal CT of chest Time Spent with Patient Time attestation: Total time managing care of this patient today ____ minutes. Discharge coordination time: Greater than 30 minutes Quality: Safe Use of Opioids Does Pt have an Active Cancer Diagnosis on the Problem List?: No Quality: Stroke Does the patient have a stroke diagnosis?: No Physical Exam Vital Signs: Vital Signs: Last Vital Signs Temp 97.6 F 05/16/22 07:52 Pulse 93 05/16/22 07:52 Resp 18 05/16/22 07:52 BP 119/69 05/16/22 07:52 Pulse Ox 92 05/16/22 07:52 O2 Del Method 05/16/22 07:52 O2 Flow Rate 2 05/16/22 07:52 Oxygen Flow Rate 3 05/15/22 03:24 BMI result Body Mass Index 36.3 DS: Data Data Completed and Pending Labs on day of discharge: Laboratory Results - last 24 hr 05/16/22 05/16/22 05:50 05:50 WBC 14.9 H RBC 5.46 Hgb 14.4 Hct 45.9 MCV 84.1 MCH 26.4 L MCHC 31.4 RDW 16.1 H Plt Count 252 MPV 9.1 L Immature Gran % (Auto) 0.5 H Neut % (Auto) 93.6 H Lymph % (Auto) 3.9 L [place] % (Auto) 1.8 L Eos % (Auto) 0.0 Baso % (Auto) 0.2 Lymph # (Auto) 0.6 L [place] # (Auto) 0.3 Eos # (Auto) 0.0 Baso # (Auto) 0.0 Abs Immat Gran (auto) 0.08 H Absolute Neuts (auto) 13.9 H Absolute Nucleated RBC 0.000 Nucleated RBC % (auto) 0.0 Smear Tech's Comments VERIFIED Sodium 142 Potassium 3.9 Chloride 99 Carbon Dioxide 34 H Anion Gap 13 BUN 18 H Creatinine 0.66 Estim Creat Clear Calc 72.2 Estimated GFR > 60 Random Glucose 130 H Calcium 9.3 Preliminary micro results at discharge 05/15/22 03:41 Blood Culture - Preliminary Blood - Venous No growth after 24 hours. 05/15/22 03:41 Blood Culture - Preliminary Blood - Venous No growth after 24 hours. Discharge Plan Discharge Anticipated Discharge Date/Time: 05/16/22 09:05 Patient Disposition: Home, Self-Care Discharge Diagnosis: Acute COPD exacerbation Referrals: Praveena Stack FNP [Primary Care Provider] - 1 Week Discharge Medications: New azithromycin 250 mg tablet 250 mg PO DAILY 4 Days Qty: 4 0RF Rx Instructions: start on day 2 of therapy prednisone 20 mg tablet 40 mg PO DAILY Qty: 8 0RF Continued cyanocobalamin (vitamin B-12) 500 mcg Tablet 500 mcg PO DAILY omeprazole 20 mg Capsule,Delayed Release(Dr/Ec) 40 mg PO DAILY vitamin E 268 mg (400 unit) Capsule 268 mg PO DAILY cholecalciferol (vitamin D3) [Vitamin D3] 25 mcg (1,000 unit) Tablet 25 mcg PO DAILY amlodipine 5 mg tablet 1 tab PO DAILY losartan 25 mg tablet 1 tab PO DAILY furosemide 20 mg tablet 1 tab PO Q OTHER DAY albuterol sulfate 90 mcg/actuation HFA aerosol inhaler 2 puff INHALATION Q6H PRN (Reason: wheezing) Discharge Orders: Discharge Order (Routine); Ordered 05/16/22 Ordered By: Almas Pérez Diet: Advance to usual diet Activity on Discharge: As tolerated Stand Alone Forms: Patient Portal Discharge page Care Plan Goals: Full recovery from copd exacerbation Health Concerns: copd, chronic respriatory failure Plan of Treatment: Take Prednisone as directed and follow up with your doctor in a week, call for appointment Follow up with Dr. Iverson Assessment: as above
--- NOTE | 2022-05-16 09:55 | P.CONPL_ITS ---
History of Present Illness History of Present Illness Consult date: 05/16/22 Chief complaint: Dyspnea Narrative: This is an inpatient pulmonary consultation.This is a 77-year-old female with pertinent history of chronic hypoxemic respiratory failure due to COPD, gastroesophageal reflux disease, essential hypertension who presents to the emergency department for evaluation of dyspnea. Patient states she uses 2 L supplemental oxygen at home p.r.n..? Over the last two days, patient was wearing supplemental oxygen continuously and even increased it to 4L but she was still hypoxemic.? She checked her home oxygen saturation and it was in the low 80s.? Also complains of associated dyspnea and increased sputum production.? No fevers or chills.? Patient denies chest discomfort, palpitations, abdominal pain, changes in urinary or bowel habits. The patient was evaluated in the ER. There she had a CT scan of the chest demonstrating interval improvement of the ground- glass opacities when compared to her CT scan from April 2022. Still she does have the regular looking right upper lobe nodular density that will need follow- up. In addition she still has a reticular changes and examination she still has some fine rales in therefore she may have a component of his pneumonitis the needs to be further addressed. Therefore, when she comes back for a outpatient pulmonary visit will address the different etiologies of this interstitial lung process. In meantime will also have to repeat imaging studies to follow-up with the irregular nodular density which is greater than a cm found in the right upper lobe area prior to on current the patient still using oxygen she has you feels back at her baseline. She is concerned over her psychosocial issues. She has a hard time with her activities of daily living. I did reach out to Case Management and will try to help her out as far setting of some type of home safety eval. The patient does have significant needs that she cannot do on her own and she cannot afford for somebody to do for her. Review of Systems Constitutional: Constitutional: Reports no additional constitutional complaints Cardiovascular: Cardiovascular: Reports dyspnea on exertion Respiratory: Respiratory: Reports cough, Reports excessive phlegm production and Reports dyspnea on exertion Genitourinary: Genitourinary: Reports no additional female genitourinary complaints Musculoskeletal: Musculoskeletal: Reports no additional musculoskeletal complaints [facility] Past Medical History Medical History (Updated 05/16/22 @ 10:07 by Darci Iverson MD) COPD (chronic obstructive pulmonary disease) Essential hypertension GERD (gastroesophageal reflux disease) Pneumonitis Pulmonary nodule Social History Social History Household Members: None Housing: Apartment Do you presently have visiting nurse or other home services: No Alcohol intake: never Patient Tobacco Use Status: Former Tobacco user Tobacco use type: Cigarette e-Cigarette/Vaping Use: Former Use Second Hand Smoke Exposure: No Advance Directives Date on File: 05/09/22 service: No Current occupational status: retired [employer] Allergies Allergy/AdvReac Type Severity Reaction Status Date / Time No Known Allergies Allergy Verified 05/15/22 03:55 Active Medications: Current Medications Acetaminophen (Acetaminophen 325 Mg Tablet) 650 mg PO Q6H PRN PRN Reason: Pain, Mild (Pain Scale 1-3) Amlodipine Besylate (Amlodipine Besylate 5 Mg Tablet) 5 mg PO DAILY DENISA; Protocol Last Admin: 05/16/22 07:54 Dose: 5 mg Albuterol Sulfate 2.5 mg/ (Ipratropium Presho 0.5 mg) 0 mg INHALE RQ4H WHILE AWAKE DENISA Last Admin: 05/16/22 07:33 Dose: 1 each Albuterol Sulfate 2.5 mg/ (Ipratropium Presho 0.5 mg) 0 mg INHALE Q4H PRN PRN Reason: Wheezing Enoxaparin Sodium (Enoxaparin Sodium 40 Mg/0.4 Ml Syringe) 40 mg SUBCUT Q24H DENISA Last Admin: 05/16/22 05:53 Dose: 40 mg Furosemide (Furosemide 20 Mg Tablet) 20 mg PO Q48H DENISA; Protocol Last Admin: 05/16/22 07:54 Dose: 20 mg Azithromycin 500 mg/ Sodium (Chloride) 250 mls @ 125 mls/hr IV Q24H DENISA Last Infusion: 05/16/22 07:56 Dose: Infused Losartan Potassium (Losartan Potassium 25 Mg Tablet) 25 mg PO DAILY DENISA; Protocol Last Admin: 05/16/22 07:54 Dose: 25 mg Melatonin (Melatonin 3 Mg Tablet) 6 mg PO BEDTIME PRN PRN Reason: Insomnia Methylprednisolone Sodium Succinate (Methylprednisolone Sod Succ 40 Mg/Ml Vial) 40 mg IVPUSH Q12H DENISA Last Admin: 05/16/22 01:45 Dose: 40 mg Ondansetron HCl (Ondansetron Hcl 4 Mg/2 Ml Vial) 4 mg IVPUSH Q8H PRN PRN Reason: Nausea and Vomiting Pharmacy Consult (Consult Rx Perform Med Rec) 1 each MISCELLANE ONCE PRN PRN Reason: Consult order Sodium Chloride (0.9 % Sodium Chloride Flush 3 Ml Syringe) 3 ml IVFLUSH QSHIFT [facility] Last Admin: 05/16/22 07:21 Dose: Not Given Home Medications Medication Instructions Recorded Confirmed Last Taken Type cholecalciferol (vitamin D3) 25 25 mcg PO DAILY 05/03/22 05/15/22 05/14/22 History mcg (1,000 unit) tablet (Vitamin D3) cyanocobalamin (vitamin B-12) 500 500 mcg PO DAILY 05/03/22 05/15/22 05/14/22 History mcg tablet omeprazole 20 mg capsule,delayed 40 mg PO DAILY 05/03/22 05/15/22 05/14/22 History release vitamin E 268 mg (400 unit) capsule 268 mg PO DAILY 05/03/22 05/15/22 05/14/22 History albuterol sulfate 90 mcg/actuation 2 puff inhalation Q6H PRN wheezing 05/15/22 05/15/22 05/14/22 History aerosol inhaler amlodipine 5 mg tablet 1 tab PO DAILY 05/15/22 05/15/22 05/14/22 History furosemide 20 mg tablet 1 tab PO Q OTHER DAY 05/15/22 05/15/22 05/14/22 History losartan 25 mg tablet 1 tab PO DAILY 05/15/22 05/15/22 05/14/22 History Physical Exam Vital Signs: Vital Signs: Last Vital Signs Temp 97.6 F 05/16/22 07:52 Pulse 93 05/16/22 07:52 Resp 18 05/16/22 07:52 BP 119/69 05/16/22 07:52 Pulse Ox 92 05/16/22 07:52 O2 Del Method 05/16/22 07:52 O2 Flow Rate 2 05/16/22 07:52 Oxygen Flow Rate 3 05/15/22 03:24 BMI result Body Mass Index 36.3 Const: General: no acute distress and alert Nutritional Appearance: not obese Orientation/consciousness: Other orientation findings ( oriented) HEENT: Head: Yes atraumatic Mouth: no other ( thrush) Throat: No postnasal drainage Eyes: General: appearance normal, both eyes and all related structures Sclerae: sclerae normal EOM: EOMs intact bilaterally Neck: Neck: Yes supple Lymphatic: no lymphadenopathy noted Resp: Effort & Inspection: normal respiratory effort and no use of accessory muscles Auscultation: rales and diminished lung sounds Cardio: Rate: regular rate Rhythm: regular rhythm Heart sounds: no gallops, no murmurs and no rubs GI: Palpation (GI): Soft to palpation and Other GI palpation findings present ( nontender) Skin: General skin exam: other ( warm) Rashes: no rashes Extrem: General: No clubbing, No cyanosis and Yes edema (Trace bilateral) Results Laboratory Findings 05/16/22 05:50 05/16/22 05:50 ABG, PT/INR, D-dimer: PT/INR, D-dimer PT 10.1 SEC (10.0-13.1) 05/15/22 03:42 INR 0.9 (0.9-1.1) 05/15/22 03:42 Abnormal lab findings: Abnormal Labs 05/15/22 05/15/22 05/15/22 03:29 03:42 03:42 WBC RBC 5.68 H Hct 47.9 H MCH 26.4 L RDW 16.1 H MPV 9.0 L Immature Gran % (Auto) Neut % (Auto) 75.3 H Lymph % (Auto) 12.4 L [place] % (Auto) Lymph # (Auto) 1.1 L Abs Immat Gran (auto) Absolute Neuts (auto) VBG pH VBG HCO3 Carbon Dioxide 33 H BUN POC Glucose 123 H Random Glucose 117 H Total Protein 6.4 L 05/15/22 05/16/22 05/16/22 03:50 05:50 05:50 WBC 14.9 H RBC Hct MCH 26.4 L RDW 16.1 H MPV 9.1 L Immature Gran % (Auto) 0.5 H Neut % (Auto) 93.6 H Lymph % (Auto) 3.9 L [place] % (Auto) 1.8 L Lymph # (Auto) 0.6 L Abs Immat Gran (auto) 0.08 H Absolute Neuts (auto) 13.9 H VBG pH 7.46 H VBG HCO3 36 H Carbon Dioxide 34 H BUN 18 H POC Glucose Random Glucose 130 H Total Protein Microbiology: Microbiology 05/15/22 03:41 Blood - Venous Blood Culture - Preliminary No growth after 24 hours. 05/15/22 03:41 Blood - Venous Blood Culture - Preliminary No growth after 24 hours. Assessment and Plan (1) Acute exacerbation of chronic obstructive airways disease: Status: Acute (2) Pneumonitis: Status: Acute (3) Pulmonary nodule: Status: Acute Plan ok to go home, but needs VNA and home safety eval F/U with out pt pulmonary 2-3 weeks, we will set up repeat outpt CT chest 3-4 months continue oxygen continue respiratory therapy slow prednisone taper Time Spent With Patient Time: Total time managing care of this patient today ____ minutes. Procedures Date of Service Date of Service: 05/16/22
--- NOTE | 2022-05-16 10:25 | W.MHC.F2F ---
Service Date Service Date: 05/16/22 Encounter Date of encounter: 05/16/22 Reasons for Services Signs and symptoms assessed: Shortness of breath, chronic respiraotry failure Reason for care home: medication management and teach disease management Reason for physical therapy: home safety and mobility and therapeutic exercises Homebound: Leaving the home is medically contraindicated at this time without the asist of a device and/or another person due th the listed conditions above and below. Reason homebound: shortness of breath with minimal effort Homebound supporting statement: Homeboud due to shortness of breath with minimal effort and therefore needs the assitance of another person Certification: Based on the above findings, I certify that this patient is confined to the home and needs intermittent care home care, physical therapy and/or speech therapy, or continues to need occupational therapy. The patient is under my care, and I have initiated the establishment of the plan of care. The patient will be followed by a physician who will periodically review the plan of care. Time Spent With Patient Time: Total time managing care of this patient today ____ minutes.
[2022-05-16 11:00] VITALS: RESP 18; O2SAT 95
--- NOTE | 2022-05-16 11:08 | MHC.CM.PN ---
Addendum entered by Patricia Goncalves RN 05/16/22 11:21: PT NOT ACTIVE W/A PCP, REPORTS SHE HAS A NEW PT APPT ON 05/29 AT [address]AM AT [address], PT INSTRUCTED TO REQUEST VNA REFERRAL AT APPT SHE WILL NEED ONE FOR HOME SERVICES. Original Note: PT MEDICALLY CLEARED FOR D/C HOME W/NEW VNA FOR SN AND HOME SAFETY EVAL AND NEW REFERRAL TO [facility] FOR HOME HEALTH SERVICE DION CALDWELL FOR BLS TRANSPORT
--- NOTE | 2022-05-18 10:34 | MHC.CM.PN ---
Addendum entered by Suri Navarro 05/18/22 11:07: Cristino from security will transport patient. Original Note: This advertising copy writer received call post-discharge that patient placed call to administration with questions/concern regarding discharge plan and not having VNA services post-d/c. this advertising copy writer reviewed chart. Pt was unable to have vna post d/c due to not having an established pcp. This advertising copy writer placed call to pt, with sooner pt appt 05/23/22 @ 9AM w/ Dr. Templeton. Communicated this to patient, she repeated back appt date time location and PCP. Patient confirmed she has portable O2 for appt, and will able to be ambulate to door to shuttle service. In general patient feels very overwhelmed with managing her care. She was satisfied with conversation and new plan for PCP appt. This advertising copy writer attempted to reschedule transportation services for pt with new appt time. Per our shuttle department, no available times for pt. this advertising copy writer did a warm hand over to Giuliano Garcia in [employer] to assist with securing transportation.
== END 2022-05-16 14:19 | disposition home or self-care (01) | DRG 190 ==
LOC: HO.ED 05:26 → HO.EDOVER 05:57 → HO.S3 18:28
PROVIDERS: Admitting Provider Student in an Organized Health Care Education/Training Program; Emergency Provider Student in an Organized Health Care Education/Training Program; PCP Nurse Practitioner Family; Visit Provider Internal Medicine
DX: J44.1 Chronic obstructive pulmonary disease with (acute) exacerbation (principal); J96.21 Acute and chronic respiratory failure with hypoxia; I10 Essential (primary) hypertension; K21.9 Gastro-esophageal reflux disease without esophagitis; Z99.81 Dependence on supplemental oxygen; Z20.822 Contact with and (suspected) exposure to COVID-19; Z87.891 Personal history of nicotine dependence; Z79.899 Other long term (current) drug therapy
CPT/HCPCS: 36415; 71045; 71250; 80048; 80053; 82803; 82947; 83605; 83880; 84484; 85025; 85610; 87040; 87635; 93005; 94640; 99285; J0456; J0692; J1650; J2920; J2930

== ENCOUNTER 2022-05-31 04:39 | Inpatient (IN) | payer MEDICARE, SELFPAY ==
[2022-05-31] VITALS (11 sets, daily range): BP systolic 97–180; BP diastolic 58–100; PULSE 105–128; RESP 18–26; TEMP 36.4–37.2; O2SAT 88–95; BMI 40.3
--- NOTE | ~2022-05-31 | XR_ITS ---
EXAMINATION: XR CHEST CLINICAL INFORMATION: Dyspnea COMPARISON: 05/15/2022 TECHNIQUE: Frontal view of the chest was obtained. FINDINGS: Cardiac leads overlie the chest. The lungs are well expanded. Diffuse bronchial wall thickening. No dense consolidation. No edema or effusion. No pneumothorax. The cardiomediastinal silhouette is within normal limits. Degenerative changes of both shoulders. XR/XR chest 1V IMPRESSION: No dense consolidation. Bronchial wall thickening can be seen with a small airways process such as asthma or atypical/viral infection.
--- NOTE | ~2022-05-31 | CT_ITS ---
EXAMINATION: CT CHEST WITHOUT CONTRAST CLINICAL INFORMATION: 77-year-old female with hypoxia and shortness of breath. COMPARISON: CXR from 05/31/2022. Chest CT from 05/03/2022 and 05/15/2022. TECHNIQUE: Multidetector volumetric CT imaging of the chest was done. Axial MIP volume rendering provided. Sagittal and coronal reformatted images were obtained. This CT examination was performed using dose optimization techniques as appropriate, variously including the following: *Automated exposure control *Adjustment of mA and/or kV according to patient size (this includes techniques or standardized protocols for targeted exams where dose is matched to indication/reason for exam; i.e. extremities or head) *Use of iterative reconstruction technique DLP: 346 mGy-cm FINDINGS: LUNGS AND PLEURA: Again noted is extensive centrilobular groundglass opacity of both lungs. No improvement in the pulmonary disease compared to 05/15/2022. Findings include persistent irregular airspace opacity in the lateral right lung apex. The focus measures 1.8 cm AP on image 83, series 5. Although this could represent postinfectious or inflammatory change, the abnormality is nonspecific. Considered following Fleischner Society guidelines, and obtain noncontrast chest CT follow-up in 3 months. No pneumothorax or pleural effusion. CARDIOVASCULAR: Heart size is normal. Mitral valve annulus is calcified. Three-vessel coronary artery atherosclerotic calcification. There is extensive atherosclerosis of the thoracic aorta without aneurysm. Pulmonary arteries are normal in size. MEDIASTINUM AND LOWER NECK: No mediastinal mass. The esophagus is unremarkable. There is partial rim calcification of a stable 1 cm nodule in the region of junction of the right thyroid lobe and isthmus. No new thyroid nodule. LYMPHATICS: No pathologic sized lymph nodes. UPPER ABDOMEN: Unremarkable. SKELETAL AND CHEST WALL: Old healed fracture of the left humeral metadiaphysis is included in the [id number]. 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 No suspicious osseous lesion CT/CT chest wo IV con IMPRESSION: * No new abnormalities in the chest compared to 05/15/2022. * Persistent patchy centrilobular groundglass opacities in both lungs could be due to noninfectious or infectious bronchiolitis and pneumonitis. Query if there is any history of cigarette smoking. A hypersensitivity pneumonitis can be included in the differential diagnosis if in the proper clinical context. * Again noted is a nonspecific irregular patchy opacity in the right upper lobe. This is stable compared to 05/03/2022 and 05/15/2022. Although this could be sequela of infectious or inflammatory disease, an underlying neoplastic lesion is not excluded and follow up is recommended. No lymphadenopathy. 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
--- NOTE | 2022-05-31 05:31 | ECG_ITS ---
Test Reason : shortness of breath Blood Pressure : / mmHG Vent. Rate : 110 BPM Atrial Rate : 110 BPM P-R Int : 176 ms QRS Dur : 082 ms QT Int : 330 ms P-R-T Axes : 079 013 126 degrees QTc Int : 446 ms Sinus tachycardia with Premature supraventricular complexes Biatrial enlargement ST & T wave abnormality, consider lateral ischemia Abnormal ECG When compared with ECG of 15-MAY-2022 03:56, Premature supraventricular complexes are now Present T wave inversion more evident in Lateral leads QT has shortened Referred By: Generic ED Physician Electronically Signed By:JESUS LANDA MD
--- NOTE | 2022-05-31 05:46 | ED_ITS ---
HPI - General Adult General Chief complaint: General Medical Stated complaint: SOB,79% RA, 91% 4LPM PER EMS Time Seen by Provider: 05/31/22 08:00 Source: patient and RN notes reviewed Mode of arrival: ambulatory Limitations: no limitations History of Present Illness HPI narrative: This is a 77-year-old female, with a past medical history of chronic hypoxemic respiratory failure due to COPD, GERD, hypertension, who presents to the emergency department today complaints worsening shortness of breath since yesterday. She states that her baseline supplemental oxygen is 2L at home, but states that she was previously admitted to [facility] [place] on 05/15/2022 for a COPD exacerbation, and was discharged on azithromycin and prednisone. She states that she completed these medications but states that her symptoms never fully resol dann as she has been using 4L of home O2. She states that last night, she felt as though her supplemental oxygen was not providing her with any relief, and increased her oxygen to 6L after noticing her oxygen was in the 80s, and she ultimately called EMS for transport. She reports that she has had a cough with sputum production, reporting it is white, and foamy in consistency. Denies her dyspnea worsening with laying flat. She also admits to a 30 lb weight loss over the last month, reports that she lost her sense of taste and smell. Denies any fevers, chest pain, palpitations, sore throat, swelling in her lower extremities. MD complaint: Dyspnea Onset (ago): day(s) Radiation: non-radiation Severity: moderate Pain Consistency: constant Relieving factors: none Exacerbating factors: none Associated symptoms: cough Treatments prior to arrival: none Related Data Home Medications Medication Instructions Recorded Confirmed cholecalciferol (vitamin D3) 25 25 mcg PO DAILY 05/03/22 05/31/22 mcg (1,000 unit) tablet (Vitamin D3) cyanocobalamin (vitamin B-12) 500 500 mcg PO DAILY 05/03/22 05/31/22 mcg tablet omeprazole 20 mg capsule,delayed 40 mg PO DAILY 05/03/22 05/31/22 release vitamin E 268 mg (400 unit) capsule 268 mg PO DAILY 05/03/22 05/31/22 albuterol sulfate 90 mcg/actuation 2 puff inhalation Q6H PRN wheezing 05/15/22 05/31/22 aerosol inhaler losartan 25 mg tablet 1 tab PO DAILY 05/15/22 05/31/22 Previous Rx's Medication Instructions Recorded amlodipine 5 mg tablet 5 mg PO DAILY 90 days #90 tabs 05/23/22 Allergies Allergy/AdvReac Type Severity Reaction Status Date / Time No Known Allergies Allergy Verified 05/23/22 09:22 Review of Systems Review of Systems: Yes all other systems are reviewed and are negative Constitutional: Constitutional: Reports no additional constitutional complaints, Denies body ache(s), Denies chills, Denies fever(s), Denies headache(s) and Denies weakness Eyes: Eyes: Reports no additional eye complaints and Denies change in vision ENT: Reports system reviewed and no additional complaints, except as documented, Denies dizziness, Denies headache(s), Denies nasal congestion, Denies nasal discharge and Denies neck pain Cardiovascular: Cardiovascular: Reports no additional cardiovascular compl aints, Denies chest pain, Denies leg edema and Reports dyspnea Respiratory: Respiratory: Reports change in phlegm color, Reports cough, Denies hemoptysis, Denies pain on inspiration, Denies pain with cough, Reports dyspnea and Denies wheezing Gastrointestinal: Gastrointestinal: Reports no additional gastrointestinal complaints, Denies abdominal pain, Denies diarrhea, Denies nausea and Denies vomiting Genitourinary: Genitourinary: Reports no additional female genitourinary complaints and Denies urinary incontinence Musculoskeletal: Musculoskeletal: Reports no additional musculoskeletal complaints, Denies back pain, Denies arthralgias, Denies joint swelling, Denies neck pain, Denies numbness and Denies tingling Integumentary/Breasts: Skin/Breast: Reports system reviewed and no additional complaints, except as docu and Denies rash Neurologic: Reports system reviewed and no additional complaints, except as documented, Denies dizziness, Denies headache(s), Denies numbness, Denies tingling and Denies weakness Allergic/Immunologic: Allergic/Immunologic: Denies wheezing PMFSH Past Medical History Attestation statement: The following information was validated with the patient. Source: old records reviewed and nursing notes reviewed Medical History COPD (chronic obstructive pulmonary disease) Essential hypertension GERD (gastroesophageal reflux disease) Pneumonitis Pulmonary nodule Surgical History H/O lithotripsy History of appendectomy Stented coronary artery Family History Family History Mother Heart attack Father Suicide Mental health disorder Social History Social History Household Members: None Housing: Apartment Do you presently have visiting nurse or other home services: No Alcohol intake: never Patient Tobacco Use Status: Former Tobacco user Tobacco use type: Cigarette Smoked in Last 30 Days: No e-Cigarette/Vaping Use: Former Use Second Hand Smoke Exposure: No Use of substances other than those prescribed or required for medical reasons: No Advance Directives: Yes Advance Directives on File: Yes Advance Directives Date on File: 05/09/22 service: No Current occupational status: retired Cognitive needs: Yes Hearing needs: No Vision needs: Yes Physical Exam ED Vital Signs: Vital Signs - 24 hr 05/31/22 05:01 05/31/22 05:10 05/31/22 07:52 Temperature 97.6 F Pulse Rate 120 H 117 H 111 H Respiratory Rate 18 24 H 25 H Blood Pressure 180/100 H 126/58 L 145/72 H Pulse Oximetry 95 88 L 94 Oxygen Delivery Method Nasal Cannula Nasal Cannula Nasal Cannula Oxygen Flow Rate 4 4 6 05/31/22 09:00 Temperature Pulse Rate 110 H Respiratory Rate 25 H Blood Pressure Pulse Oximetry Oxygen Delivery Method Oxygen Flow Rate BMI result Body Mass Index 40.3 Const Other: obese ill appearing, short of breath, pt sitting upright at end of stretcher Orientation/consciousness: oriented to person and patient oriented x3 Limitations: no limitations HENMT Head: Yes normal to inspection Ears: external ears normal General nose exam: Normal external nose present Mouth: Normal oral and palatal mucosa present and oropharynx normal Throat: Yes posterior oropharynx normal Eyes General: appearance normal, both eyes and all related structures Neck Neck: Yes normal visual inspection Chest Chest palpation & inspection: normal inspection of the chest Resp Other: diffuse rales and slight wheeze +tachypnea Auscultation: no crackles, no rales, no rhonchi and no wheezes Cardio Jugular venous distension: no JVD Rate: regular rate Rhythm: regular rhythm Heart sounds: S1 normal heart sound present and S2 normal heart sound present GI Inspection: Yes normal to inspection Palpation (GI): Soft to palpation, nontender and No hepatosplenomegaly present Auscultation: normal bowel sounds General: Yes no CVA tenderness Back/Spine/Pelvis Back: no CVA tenderness Skin General skin exam: no rashes or lesions noted Neuro General: oriented to person and patient oriented x3 Cranial nerves: Yes CN's II-XII intact bilaterally Motor exam (neuro): 5/5 motor strength present throughout Extrem General: Yes normal to inspection, Yes capillary refill normal, No no pedal edema and No no calf tenderness Psych Appearance: grossly normal Course Course Course Narrative: Patient with continued tachypnea at rest, requiring increase in oxygen suppl ement to maintain saturation >88%. Would benefit from admission for further management. Medications Administered Discontinued Medications Generic Name Dose Route Start Last Admin Trade Name Freq PRN Reason Stop Dose Admin Albuterol Sulfate 5 mg/ 0 mg 05/31/22 08:41 05/31/22 08:59 Ipratropium [place] 0.5 mg INHALE 05/31/22 08:42 7.5 each ONCE ONE Administration Magnesium Sulfate 2 gm in 50 mls @ 25 mls/hr 05/31/22 08:41 05/31/22 11:30 Magnesium Sulfate/H2o IV 05/31/22 10:40 Infused ONCE ONE Infusion Methylprednisolone Sodium Succinate 125 mg 05/31/22 08:41 05/31/22 09:05 Methylprednisolone Sod Succ 125 Mg/2 Ml Vial IVPUSH 05/31/22 08:42 125 mg ONCE ONE Administration Medical Decision Making Medical Decision Making [facility] Narrative: 08:40AM - 77 y/o F, with a history of chronic hypoxemic respiratory failure due to COPD, GED, and hypertension, who presents to the emergency department for worsening dyspnea over the last month, worsening yesterday. Recent hospital admission for COPD exacerbation, pt treated with abx and steroids, without relief. On examination, pt is sitting upright on edge of bed, receiving 6L O2 on nasal cannula stating at 94%, RR 25, and tachycardic at 111bpm. Tachycardia/tachypnea and increasing oxygen requirement is from chronic lung disease and not infection. Given recent CTA on 05/06/22, and no change in her symptoms, will hold off on CA at this time. She appears comfortable, speaking in full sentences. Labs, EKG, Chest x-ray, Viral swabs, and Duo-Nebulizer ordered Differential Diagnosis Differential Diagnoses: The differential diagnosis associated with the presentation includes COPD exacerbation, pneumonia, bronchitis, viral syndrome, ARDS, COVID-19, PE - less likely. Admission/Observation Consideration of admission/observation: Escalation of care including admission/observation considered See course of care Consult Healthcare Provider Management of the patient was discussed with: Hospitalist Plan for admission for COPD exacerbation. Spoke to Rachana QUINONES who accepted admission. Lab Data MDM Lab Attestation statement: I reviewed the patient's lab results. 05/31/22 05:46 05/31/22 05:46 Labs: Lab Results 05/31/22 05/31/22 05/31/22 Range/Units 05:46 05:46 05:46 WBC 8.6 (4.8-10.8) X10*3/uL RBC 5.52 H (4.20-5.50) X10*6/uL Hgb 14.7 (12.0-16.0) g/dl Hct 47.1 H (37.0-47.0) % MCV 85.3 (80.0-98.0) fL MCH 26.6 L (27.0-33.0) pg MCHC 31.2 (31.0-35.0) g/dl RDW 16.3 H (11.0-16.0) % Plt Count 192 (160-400) X10*3/uL MPV 9.1 L (9.4-12.3) fL Immature Gran % (Auto) 0.5 H (0.0-0.4) % Neut % (Auto) 75.4 H (45-73) % Lymph % (Auto) 11.3 L (20-40) % [place] % (Auto) 10.3 (2-11) % Eos % (Auto) 1.9 (0-4) % Baso % (Auto) 0.6 (0-2) % Lymph # (Auto) 1.0 L (1.2-4.9) X10*3/uL [place] # (Auto) 0.9 (0.1-1.2) X10*3/uL Eos # (Auto) 0.2 (0.0-0.4) X10*3/uL Baso # (Auto) 0.1 (0.0-0.2) X10*3/uL Abs Immat Gran (auto) 0.04 H (0.00-0.03) X10*3/uL Absolute Neuts (auto) 6.5 (2.0-8.3) x10*3/uL Absolute Nucleated RBC 0.000 (0.0-0.012) X10*3/uL Nucleated RBC % (auto) 0.0 (0.0-0.2) /100WBC VBG pH (7.32-7.43) VBG pCO2 mmHg VBG pO2 mmHg VBG HCO3 (22-26) mmol/L VBG O2 Saturation % VBG Base Excess mmol/L Sodium 144 (135-145) mmol/L Potassium 3.5 (3.3-5.1) mmol/L Chloride 100 (96-108) mmol/L Carbon Dioxide 30 H (22-29) mmol/L Anion Gap 18 (12-20) BUN 20 H (9-16) mg/dL Creatinine 0.78 (0.5-1.4) mg/dL Estim Creat Clear Calc 74.7 Estimated GFR > 60 Random Glucose 94 (60-115) mg/dL Calcium 9.1 (8.4-10.2) mg/dL Total Bilirubin (0.0-1.0) mg/dL Direct Bilirubin (0.0-0.5) mg/dL AST (5-31) U/L ALT (0-31) U/L Alkaline Phosphatase (39-117) U/L Troponin I High Sens 9.6 (<3.5-17.0) ng/L B-Natriuretic Peptide (<100) pg/mL Total Protein (6.5-8.0) g/dL Albumin (3.5-5.0) g/dL COVID-19 (CINDY) (Negative) COVID-19 Clin Com Influenza Type A (PCR) (Negative) Influenza Type B (PCR) (Negative) RSV RNA Qual (PCR) (Negative) SARS-CoV-2 RNA (RT-PCR) (Negative) 05/31/22 05/31/22 05/31/22 Range/Units 08:16 10:10 10:10 WBC (4.8-10.8) X10*3/uL RBC (4.20-5.50) X10*6/uL Hgb (12.0-16.0) g/dl Hct (37.0-47.0) % MCV (80.0-98.0) fL MCH (27.0-33.0) pg MCHC (31.0-35.0) g/dl RDW (11.0-16.0) % Plt Count (160-400) X10*3/uL MPV (9.4-12.3) fL Immature Gran % (Auto) (0.0-0.4) % Neut % (Auto) (45-73) % Lymph % (Auto) (20-40) % [place] % (Auto) (2-11) % Eos % (Auto) (0-4) % Baso % (Auto) (0-2) % Lymph # (Auto) (1.2-4.9) X10*3/uL [place] # (Auto) (0.1-1.2) X10*3/uL Eos # (Auto) (0.0-0.4) X10*3/uL Baso # (Auto) (0.0-0.2) X10*3/uL Abs Immat Gran (auto) (0.00-0.03) X10*3/uL Absolute Neuts (auto) (2.0-8.3) x10*3/uL Absolute Nucleated RBC (0.0-0.012) X10*3/uL Nucleated RBC % (auto) (0.0-0.2) /100WBC VBG pH (7.32-7.43) VBG pCO2 mmHg VBG pO2 mmHg VBG HCO3 (22-26) mmol/L VBG O2 Saturation % VBG Base Excess mmol/L Sodium (135-145) mmol/L Potassium (3.3-5.1) mmol/L Chloride (96-108) mmol/L Carbon Dioxide (22-29) mmol/L Anion Gap (12-20) BUN (9-16) mg/dL Creatinine (0.5-1.4) mg/dL Estim Creat Clear Calc Estimated GFR Random Glucose (60-115) mg/dL Calcium (8.4-10.2) mg/dL Total Bilirubin 0.7 (0.0-1.0) mg/dL Direct Bilirubin 0.3 (0.0-0.5) mg/dL AST 17 (5-31) U/L ALT 19 (0-31) U/L Alkaline Phosphatase 70 (39-117) U/L Troponin I High Sens (<3.5-17.0) ng/L B-Natriuretic Peptide 73 (<100) pg/mL Total Protein 6.2 L (6.5-8.0) g/dL Albumin 3.7 (3.5-5.0) g/dL COVID-19 (CINDY) Negative (Negative) COVID-19 Clin Com See Note Influenza Type A (PCR) (Negative) Influenza Type B (PCR) (Negative) RSV RNA Qual (PCR) (Negative) SARS-CoV-2 RNA (RT-PCR) (Negative) 05/31/22 05/31/22 Range/Units 10:10 10:16 WBC (4.8-10.8) X10*3/uL RBC (4.20-5.50) X10*6/uL Hgb (12.0-16.0) g/dl Hct (37.0-47.0) % MCV (80.0-98.0) fL MCH (27.0-33.0) pg MCHC (31.0-35.0) g/dl RDW (11.0-16.0) % Plt Count (160-400) X10*3/uL MPV (9.4-12.3) fL Immature Gran % (Auto) (0.0-0.4) % Neut % (Auto) (45-73) % Lymph % (Auto) (20-40) % [place] % (Auto) (2-11) % Eos % (Auto) (0-4) % Baso % (Auto) (0-2) % Lymph # (Auto) (1.2-4.9) X10*3/uL [place] # (Auto) (0.1-1.2) X10*3/uL Eos # (Auto) (0.0-0.4) X10*3/uL Baso # (Auto) (0.0-0.2) X10*3/uL Abs Immat Gran (auto) (0.00-0.03) X10*3/uL Absolute Neuts (auto) (2.0-8.3) x10*3/uL Absolute Nucleated RBC (0.0-0.012) X10*3/uL Nucleated RBC % (auto) (0.0-0.2) /100WBC VBG pH 7.46 H (7.32-7.43) VBG pCO2 38 mmHg VBG pO2 80 mmHg VBG HCO3 27 H (22-26) mmol/L VBG O2 Saturation 97.0 % VBG Base Excess 4.0 mmol/L Sodium (135-145) mmol/L Potassium (3.3-5.1) mmol/L Chloride (96-108) mmol/L Carbon Dioxide (22-29) mmol/L Anion Gap (12-20) BUN (9-16) mg/dL Creatinine (0.5-1.4) mg/dL Estim Creat Clear Calc Estimated GFR Random Glucose (60-115) mg/dL Calcium (8.4-10.2) mg/dL Total Bilirubin (0.0-1.0) mg/dL Direct Bilirubin (0.0-0.5) mg/dL AST (5-31) U/L ALT (0-31) U/L Alkaline Phosphatase (39-117) U/L Troponin I High Sens (<3.5-17.0) ng/L B-Natriuretic Peptide (<100) pg/mL Total Protein (6.5-8.0) g/dL Albumin (3.5-5.0) g/dL COVID-19 (CINDY) (Negative) COVID-19 Clin Com Influenza Type A (PCR) NEGATIVE (Negative) Influenza Type B (PCR) NEGATIVE (Negative) RSV RNA Qual (PCR) NEGATIVE (Negative) SARS-CoV-2 RNA (RT-PCR) NEGATIVE (Negative) Independent Interpretation I performed an independent interpretation of an: EKG Interpretation: EKG - Sinus tachycardia with a venticular rate of 110 BPM with PVS. AR normal, some nonspecific ST depressions which are slightly worsened when compared to previous EKGs. I indepedentely reviewed the chest x-ray and agree with the radiologist's report Radiology Impression Discussion of test interpretation with radiology: I have reviewed the radiologist's reading. Independent Historian Clinical information obtained from an independent historian. History obtained from or confirmed by: EMS Discharge Plan Discharge Clinical Impression: COPD (chronic obstructive pulmonary disease) Patient Disposition: Admitted As Inpatient
[2022-05-31 05:51] LABS: Basophils Absolute Auto 0.1 X10*3/uL (0.0-0.2); Basophils Percent Auto 0.6 % (0-2); Eosinophils Absolute Auto 0.2 X10*3/uL (0.0-0.4); Eosinophils Percent Auto 1.9 % (0-4); Hematocrit 47.1 % (37.0-47.0); Hemoglobin 14.7 g/dl (12.0-16.0); Imm Gran Abs Auto 0.04 X10*3/uL (0.00-0.03); Imm Gran Pct Auto 0.5 % (0.0-0.4); Lymphocytes Percent Auto 11.3 % (20-40); MANUAL DIFF FLAG NO; Mean Corpuscular HGB Conc 31.2 g/dl (31.0-35.0); Mean Corpuscular Hemoglobin 26.6 pg (27.0-33.0); Mean Corpuscular Volume 85.3 fL (80.0-98.0); Mean Platelet Volume 9.1 fL (9.4-12.3); Monocytes Absolute Auto 0.9 X10*3/uL (0.1-1.2); Monocytes Percent Auto 10.3 % (2-11); Neutrophils Absolute Auto 6.5 x10*3/uL (2.0-8.3); Neutrophils Percent Auto 75.4 % (45-73); Platelet Count 192 X10*3/uL (160-400); Red Blood Count 5.52 X10*6/uL (4.20-5.50); Red Cell Distribution Width 16.3 % (11.0-16.0); White Blood Count 8.6 X10*3/uL (4.8-10.8)
[2022-05-31 06:06] LABS: Anion Gap 18 (12-20); Blood Urea Nitrogen 20 mg/dL (9-16); Calcium 9.1 mg/dL (8.4-10.2); Carbon Dioxide 30 mmol/L (22-29); Chloride 100 mmol/L (96-108); Creatinine Clr Calc Pharmacy 74.7; Estimated Glomerular Filt Rate > 60; Glucose Random 94 mg/dL (60-115); Potassium 3.5 mmol/L (3.3-5.1); Sodium 144 mmol/L (135-145)
[2022-05-31 06:15] LABS: Troponin-I High Sensitivity 9.6 ng/L (<3.5-17.0)
--- NOTE | 2022-05-31 08:00 | PC.NURSE ---
pt alert and oriented, skin pwd, respirations labored breathing at about 24-26 per min, sating at 87% on nasal cannual at 7l but pt's cannual was not in her nostril at that time one postioned pt's sats improved to 92% on the 7l, ls diminished, pt does report having a productive cough with white/foamy consistency
[2022-05-31 08:36] LABS: COVID-19 Test Negative (Negative); IDNOW Serial# 55D5AD1C
[2022-05-31] MEDS: methylPREDNISolone Sod Succ 125 MG/2 ML VIAL IVPUSH (09:05)
[2022-05-31] MEDS: Magnesium Sulfate/H2O 2 GM/50 ML PIGGYBACK IV (09:11)
[2022-05-31 10:21] LABS: Venous Blood Gas Refer to POC result
[2022-05-31 10:22] LABS: VBG HCO3 27 mmol/L (22-26); VBG pCO2 38 mmHg; VBG pH 7.46 (7.32-7.43); VBG pO2 80 mmHg
[2022-05-31 10:40] LABS: Alanine Aminotransferase 19 U/L (0-31); Albumin Level 3.7 g/dL (3.5-5.0); Alkaline Phosphatase 70 U/L (39-117); Aspartate Amino Transferase 17 U/L (5-31); Bilirubin Direct 0.3 mg/dL (0.0-0.5); Bilirubin Total 0.7 mg/dL (0.0-1.0); Total Protein 6.2 g/dL (6.5-8.0)
[2022-05-31 10:42] LABS: B Type Natriuretic Peptide 73 pg/mL (<100)
[2022-05-31 10:57] LABS: Influenza A PCR NEGATIVE (Negative); Influenza B PCR NEGATIVE (Negative); Resp Syncy Virus RNA Qual PCR NEGATIVE (Negative); SARS COV2 PCR INHOUSE NEGATIVE (Negative)
--- NOTE | 2022-05-31 11:55 | PHA.MEDREC ---
Pharmacy Consult ? Medication Reconciliation Pharmacy has completed the medication reconciliation. Patient thought that both amlodipine and losartan were the same medications just different colors. Since she has no refills on the blue pill prescribed by the hospital doctor she was going to finish that then restart the white pill since that was prescribed by her PCP. Patient has only been taking 1 of her 2 blood pressure medicaitons. Per Dr Templeton note on 05/23/22, patient should be on both amlodipine and losartan. Heide Cook, [employer]ore[employer]
--- NOTE | 2022-05-31 12:51 | P.HPHOSP_ITS ---
History of Present Illness Date of Service: 05/31/22 Attending physician on admission: Cade Villavicencio Chief Complaint: sob, hypoxia 77-year-old female with history of COPD with chronic hypoxemic hypercapnic respiratory failure on 2 L supplemental O2 at baseline, GERD, hypertension presented to the ED earlier today for evaluation of worsening shortness of breath and hypoxia ongoing for several days. She states that she has been having increased O2 requirement and has been requiring up to 5L supplemental O2 to maintain oximetry of 92%. She was recently admitted and discharged from [facility] [place] on 05/16 for COPD exacerbation and was discharged on azithromycin and prednisone which she states she completed. She feels her symptoms never fully resolved though did improve slightly. She does still continue to have an occasionally productive cough with white sputum production that has not worsened however. She did also have hospitalization from 05/03/2024 for similar diagnosis. She had been advised at that time to start 20 mg of Lasix every other day but the patient states she stopped taking it as her PCP did not provide refills and she did not like the increased frequency of urination. There have been no fevers, chills, sore throat, congestion, abdominal pain, nausea, vomiting, light headedness, palpitations, or chest pain. Per ED note, upon arrival to her home, EMS noted oximetry of 79% and increased supplemental O2 to 6 L. on arrival, patient oximetry ranging 88-93% at rest on 6 L. She was initially hypertensive to 180/100, tachycardic to 120 and has been intermittently tachypneic to 25 primarily with movement. There is no leukocytosis. Renal function normal, electrolyte levels normal. Troponin 9.6, BNP 73. Negative for COVID-19, influenza, RSV. CXR is negative for any focal consolidation but does show bronchial wall thickening suggestive of small airways disease or atypical/viral infection. She did have recent chest CTA on 05/03 which was negative for central PE. EKG showing sinus tachycardia with premature supraventricular complexes, rate 110. In the ED, given albuterol, IV magnesium, 125 mg methylprednisolone. Review of Systems Review of Systems: General: No fevers, malaise, unintentional weight loss HEENT: No blurred vision, diplopia. No sore throat, nasal congestion, rhinorrhea, sinus pain, ear pain Cardiovascular: No chest pain, palpitations, or leg edema Respiratory: +sob, +hypoxia,. +cough. No wheezing GI: No abdominal pain, nausea, vomiting, diarrhea, constipation, melena, hematochezia : No dysuria, hematuria, increased urinary frequency, decreased urinary output MSK: No myalgia, back pain Neuro: No headaches, weakness, paresthesias Skin: No rashes or lesions [facility] Medical History COPD (chronic obstructive pulmonary disease) Essential hypertension GERD (gastroesophageal reflux disease) Pneumonitis Pulmonary nodule Family History Mother Heart attack Father Suicide Mental health disorder Surgical History H/O lithotripsy History of appendectomy Stented coronary artery Social History Household Members: None Housing: Apartment Do you presently have visiting nurse or other home services: No Unable to assess alcohol history related to: Refusing to respond Alcohol intake: never Patient Tobacco Use Status: Former Tobacco user Tobacco use type: Cigarette Smoked in Last 30 Days: No e-Cigarette/Vaping Use: Former Use Second Hand Smoke Exposure: No Use of substances other than those prescribed or required for medical reasons: Refusing to respond Currently Displaying Signs/Symptoms of Drug Intoxication Withdrawal: No Advance Directives: Yes Advance Directives on File: Yes Advance Directives Date on File: 05/09/22 Do you have thoughts of harming others: None Do you have a plan to hurt others: No Plan Recently lost weight without trying: No Patient : No : No Poor oral hygiene: No service: No Current occupational status: retired Cognitive needs: Yes Hearing needs: No Vision needs: Yes Meds Allergies Allergy/AdvReac Type Severity Reaction Status Date / Time No Known Allergies Allergy Verified 05/23/22 09:22 Active Medications: Current Medications Pharmacy Consult (Consult Rx Perform Med Rec) 1 each MISCELLANE ONCE PRN PRN Reason: Consult order Home Medications Medication Instructions Recorded Confirmed Last Taken Type cholecalciferol (vitamin D3) 25 25 mcg PO DAILY 05/03/22 05/31/22 05/14/22 History mcg (1,000 unit) tablet (Vitamin D3) cyanocobalamin (vitamin B-12) 500 500 mcg PO DAILY 05/03/22 05/31/22 05/14/22 History mcg tablet omeprazole 20 mg capsule,delayed 40 mg PO DAILY 05/03/22 05/31/22 05/14/22 History release vitamin E 268 mg (400 unit) capsule 268 mg PO DAILY 05/03/22 05/31/22 05/14/22 History albuterol sulfate 90 mcg/actuation 2 puff inhalation Q6H PRN wheezing 05/15/22 05/31/22 05/14/22 History aerosol inhaler losartan 25 mg tablet 1 tab PO DAILY 05/15/22 05/31/22 05/31/22 History Physical Exam Vital Signs and Narrative: Vital Signs: Last Vital Signs Temp 97.6 F 05/31/22 05:10 Pulse 110 H 05/31/22 09:00 Resp 25 H 05/31/22 09:00 BP 145/72 H 05/31/22 07:52 Pulse Ox 94 05/31/22 07:52 O2 Del Method 05/31/22 07:52 O2 Flow Rate 6 05/31/22 07:52 BMI result Body Mass Index 40.3 Constitutional - Awake and Alert, No apparent distress Eyes - PERRLA, EOMI Cardiovascular - S1S2, RRR, No edema Respiratory - Normal lung expansion, Normal respiratory effort, No respiratory distress, few expiratory wheezes bilateral upper lobes, bibasilar crackles Gastrointestinal - NT / ND; +BS; No rebound or guarding Extremities - no calf tenderness bilaterally, no swelling Skin - Warm/Dry Neurological - Alert & oriented x3, CN II-XII in tact, 5/5 strength BUE and BLE Psychological - Appropriate affect Results Labs 05/31/22 05:46 05/31/22 05:46 Labs: Laboratory Results - last 24 hr 05/31/22 05/31/22 05/31/22 05:46 05:46 05:46 MCV 85.3 MCH 26.6 L MCHC 31.2 RDW 16.3 H Plt Count 192 MPV 9.1 L Immature Gran % (Auto) 0.5 H Neut % (Auto) 75.4 H Lymph % (Auto) 11.3 L [place] % (Auto) 10.3 Eos % (Auto) 1.9 Baso % (Auto) 0.6 Lymph # (Auto) 1.0 L [place] # (Auto) 0.9 Eos # (Auto) 0.2 Baso # (Auto) 0.1 Abs Immat Gran (auto) 0.04 H Absolute Neuts (auto) 6.5 Absolute Nucleated RBC 0.000 Nucleated RBC % (auto) 0.0 VBG pH VBG pCO2 VBG pO2 VBG HCO3 VBG O2 Saturation VBG Base Excess Anion Gap 18 Estim Creat Clear Calc 74.7 Estimated GFR > 60 Random Glucose 94 Calcium 9.1 Total Bilirubin Direct Bilirubin AST ALT Alkaline Phosphatase Troponin I High Sens 9.6 B-Natriuretic Peptide Total Protein Albumin COVID-19 (CINDY) COVID-19 Clin Com Influenza Type A (PCR) Influenza Type B (PCR) RSV RNA Qual (PCR) SARS-CoV-2 RNA (RT-PCR) 05/31/22 05/31/22 05/31/22 08:16 10:10 10:10 MCV MCH MCHC RDW Plt Count MPV Immature Gran % (Auto) Neut % (Auto) Lymph % (Auto) [place] % (Auto) Eos % (Auto) Baso % (Auto) Lymph # (Auto) [place] # (Auto) Eos # (Auto) Baso # (Auto) Abs Immat Gran (auto) Absolute Neuts (auto) Absolute Nucleated RBC Nucleated RBC % (auto) VBG pH VBG pCO2 VBG pO2 VBG HCO3 VBG O2 Saturation VBG Base Excess Anion Gap Estim Creat Clear Calc Estimated GFR Random Glucose Calcium Total Bilirubin 0.7 Direct Bilirubin 0.3 AST 17 ALT 19 Alkaline Phosphatase 70 Troponin I High Sens B-Natriuretic Peptide 73 Total Protein 6.2 L Albumin 3.7 COVID-19 (CINDY) Negative COVID-19 Clin Com See Note Influenza Type A (PCR) Influenza Type B (PCR) RSV RNA Qual (PCR) SARS-CoV-2 RNA (RT-PCR) 05/31/22 05/31/22 10:10 10:16 MCV MCH MCHC RDW Plt Count MPV Immature Gran % (Auto) Neut % (Auto) Lymph % (Auto) [place] % (Auto) Eos % (Auto) Baso % (Auto) Lymph # (Auto) [place] # (Auto) Eos # (Auto) Baso # (Auto) Abs Immat Gran (auto) Absolute Neuts (auto) Absolute Nucleated RBC Nucleated RBC % (auto) VBG pH 7.46 H VBG pCO2 38 VBG pO2 80 VBG HCO3 27 H VBG O2 Saturation 97.0 VBG Base Excess 4.0 Anion Gap Estim Creat Clear Calc Estimated GFR Random Glucose Calcium Total Bilirubin Direct Bilirubin AST ALT Alkaline Phosphatase Troponin I High Sens B-Natriuretic Peptide Total Protein Albumin COVID-19 (CINDY) COVID-19 Clin Com Influenza Type A (PCR) NEGATIVE Influenza Type B (PCR) NEGATIVE RSV RNA Qual (PCR) NEGATIVE SARS-CoV-2 RNA (RT-PCR) NEGATIVE Imaging Radiologist's Impressions: Impressions Chest X-Ray 05/31/22 06:17 IMPRESSION: No dense consolidation. Bronchial wall thickening can be seen with a small airways process such as asthma or atypical/viral infection. Assessment and Plan (1) Acute and chronic respiratory failure: Status: Acute Plan 77-year-old female with history of COPD with chronic hypoxemic hypercapnic respiratory failure on 2 L supplemental O2 at baseline, GERD, hypertension admitted for acute on chronic hypoxemic hypercapnic respiratory failure # acute on chronic hypoxemic hypercapnic respiratory failure-etiology unclear at this time, possibly related to mild COPD exacerbation versus viral infection -CXR negative for pneumonia, but does show bronchial wall thickening -VBG without significant change from baseline -uses 2 L supplemental O2 at baseline now requiring 6 L, continue supplemental O2 to maintain oximetry 90-92% -low suspicion for PE. Had chest CTA negative for central PE 1 month ago. No significant change in symptoms/vital signs -likely also has component of obesity hypoventilation syndrome, incentive spirometry ordered -evaluate chest CT -consider pulmonology consult if no improvements # acute COPD exacerbation-mild -productive cough has improved and recently completed course of azithromycin and p.o. prednisone, with discharge on 05/16 -CXR negative for pneumonia. Negative for COVID-19, RSV, influenza. Full viral respiratory panel pending -initiate prednisone 40 mg daily x5 days, no further antibiotic treatment indicated -DuoNebs q.4h -albuterol p.r.n. #Sinus tachycardia -intermittent, chronic -EKG showing sinus tachycardia with premature supraventricular complexes -likely related to increased sympathetic tone r/t COPD -not sepsis #HFpEF- no acute exacerbation -resume Lasix 20 mg every other day as previously prescribed # GERD -continue PPI # hypertension-reasonably controlled -continue amlodipine and losartan DVT prophylaxis-Lovenox DNR/DNI-discussed with patient, has living well noting DNR/DNI and healthcare proxy who is her senior trial attorney Patient requires inpatient stay of at least 2 midnights for management of acute on chronic hypoxemic hypercapnic respiratory failure with increased work of breathing, tachypnea requiring increased supplemental O2 requirements from baseline and further investigation into etiology of acute hypoxia. Time Spent With Patient Time: Total time managing care of this patient today ____ minutes. Quality Stroke Does the patient have a stroke diagnosis?: No VTE Prior VTE?: No VTE Risk Level:: Medical - moderate - high VTE Device Contraindication: Treatment Not Indicated VTE Drug Contraindication: N/A - Med Ordered
[2022-05-31] MEDS: Furosemide 20 MG TABLET PO (14:21)
[2022-05-31] MEDS: Enoxaparin Sodium 40 MG/0.4 ML SYRINGE SUBCUT (14:23)
[2022-05-31 15:07] LABS: Adenovirus PCR Not Detected (Not Detect.); Bordetella parapertussis PCR Not Detected (Not Detect.); Bordetella pertussis PCR Not Detected (Not Detect.); Chlamydia pneumoniae PCR Not Detected (Not Detect.); Coronavirus 229E PCR Not Detected (Not Detect.); Coronavirus HKU1 PCR Not Detected (Not Detect.); Coronavirus NL63 PCR Not Detected (Not Detect.); Coronavirus OC43 PCR Not Detected (Not Detect.); SARS-CoV-2 PCR Not Detected (Not Detect.)
[2022-05-31 15:09] LABS: Human metapneumovirus PCR Not Detected (Not Detect.); Influenza A PCR Not Detected (Not Detect.); Influenza B PCR Not Detected (Not Detect.); Mycoplasma pneumoniae PCR Not Detected (Not Detect.); Parainfluenza 1 PCR Not Detected (Not Detect.); Parainfluenza 2 PCR Not Detected (Not Detect.); Parainfluenza 3 PCR Not Detected (Not Detect.); Parainfluenza 4 PCR Not Detected (Not Detect.); RSV PCR Not Detected (Not Detect.); Rhino/Enterovirus PCR Not Detected (Not Detect.)
--- NOTE | 2022-05-31 15:20 | PC.NURSE ---
Patient on CPAP at 5/35 and tolerating well at this time.
[2022-05-31] MEDS: 0.9 % Sodium Chloride Flush 3 ML SYRINGE IVFLUSH (16:26)
--- NOTE | 2022-05-31 17:38 | MHC.CM.PN ---
CM attempted to meet with admitted patient for discharge planning. Pt sleeping soundly. Will meet with patient when she wakes.
--- NOTE | 2022-05-31 19:52 | PC.NURSE ---
patient admitted from overflow to [facility], anxious,
[2022-06-01] VITALS (8 sets, daily range): BP systolic 121–141; BP diastolic 72–80; PULSE 80–107; RESP 16–20; TEMP 36.4–37.2; O2SAT 91–95
[2022-06-01] MEDS: 0.9 % Sodium Chloride Flush 3 ML SYRINGE IVFLUSH ×4 (00:44→23:03)
[2022-06-01] MEDS: Omeprazole 40 MG CAPSULE.DR PO (05:32)
[2022-06-01 06:41] LABS: MANUAL DIFF FLAG NO
[2022-06-01 06:45] LABS: Hematocrit 40.7 % (37.0-47.0); Imm Gran Abs Auto 0.05 X10*3/uL (0.00-0.03); Imm Gran Pct Auto 0.5 % (0.0-0.4); Lymphocytes Absolute Auto 0.5 X10*3/uL (1.2-4.9); Lymphocytes Percent Auto 5.4 % (20-40); Mean Corpuscular HGB Conc 31.9 g/dl (31.0-35.0); Mean Corpuscular Hemoglobin 26.4 pg (27.0-33.0); Mean Corpuscular Volume 82.7 fL (80.0-98.0); Mean Platelet Volume 9.1 fL (9.4-12.3); Monocytes Percent Auto 9.9 % (2-11); Neutrophils Absolute Auto 8.4 x10*3/uL (2.0-8.3); Neutrophils Percent Auto 84.2 % (45-73); Platelet Count 194 X10*3/uL (160-400); Red Blood Count 4.92 X10*6/uL (4.20-5.50); Red Cell Distribution Width 16.4 % (11.0-16.0)
[2022-06-01 07:10] LABS: Anion Gap 11 (12-20); Blood Urea Nitrogen 26 mg/dL (9-16); Calcium 8.9 mg/dL (8.4-10.2); Carbon Dioxide 33 mmol/L (22-29); Chloride 101 mmol/L (96-108); Creatinine Clr Calc Pharmacy 74.7; Estimated Glomerular Filt Rate > 60; Glucose Random 108 mg/dL (60-115); Sodium 141 mmol/L (135-145)
--- NOTE | 2022-06-01 08:43 | MHC.CM.PN ---
CM met with Patient at bedside and addressed IMM with her, providing her with the original and placing a copy on the chart. Patient lives alone in an apartment and her home O2 is supplied through [employer] and Patient had been referred to [facility] but she returned to the hospital before [facility] made their first visit. Home/resume said services is the goal and CM has initiated and will follow for dc planning. Patient is Alena weber and her PCP/DRAPERY INSPECTOR is Praveena Mace.
[2022-06-01] MEDS: Cholecalciferol (Vitamin D3) 25 MCG TABLET PO (09:05)
[2022-06-01] MEDS: amLODIPine Besylate 5 MG TABLET PO (09:05)
[2022-06-01] MEDS: Furosemide 20 MG TABLET PO (09:05)
[2022-06-01] MEDS: Losartan Potassium 25 MG TABLET PO (09:06)
[2022-06-01] MEDS: Cyanocobalamin (Vitamin B-12) 500 MCG TABLET PO (09:06)
--- NOTE | 2022-06-01 10:10 | MHC.CM.PN ---
CM met with Patient at bedside with Patient Experience Sewing Line Baler/Gunjan. Patient states that she has a HCP at home naming her Heel Stainer/STOCK RECEIVER Scooter (she cannot remember his first name nor his phone number)as her Agent. There is presently a HCP on file here that names her Landlord/Aquilino Zulema that Patient wants null and voided. CM encourage to fill out a new HCP today, naming her Heel Stainer but Patient did not want to do that. CM also encouraged Patient to perhaps mail in or bring in a copy of the HCP she has at home that she wants to be in place.Patient stated that she wants to be sure that she is a DNR. CM will follow further as needed.
[2022-06-01] MEDS: Enoxaparin Sodium 40 MG/0.4 ML SYRINGE SUBCUT (13:48)
--- NOTE | 2022-06-01 17:00 | HO.PM.IMPN ---
Subjective Subjective Date of Service: 06/01/22 Interval History: Admitted for shortness of breath feeling better than yesterday, less oxygen requirement patient concerned about exposure to bat and having histoplasmosis, denies fever chills, no worsening of cough, denies headache lightheadedness or dizziness no other acute events overnight. Review of Systems Review of Systems: Yes all other systems are reviewed and are negative Physical Exam Vital Signs: Vital Signs: Last Vital Signs Temp 97.5 F 06/01/22 15:20 Pulse 104 H 06/01/22 15:27 Resp 20 06/01/22 15:27 BP 121/77 06/01/22 15:20 Pulse Ox 92 06/01/22 15:20 O2 Del Method 06/01/22 15:20 O2 Flow Rate 4 06/01/22 15:20 BMI result Body Mass Index 40.3 Const: Other: General awake alert x3 , sitting comfortably in no acute distress. Neck supple no JVD. CVS regular rate rhythm, Respiratory lungs rales, no respiratory distress, no use of accessory muscles Gastrointestinal abdomen soft, nontender, bowel sounds audible, no guarding , no rigidity. Extremities no edema. Neuro nonfocal Skin no rash Psych appropriate affect Objective Data Active Medications Acetaminophen (Acetaminophen 325 Mg Tablet) 650 mg PO Q6H PRN PRN Reason: Pain, Mild (Pain Scale 1-3) Albuterol Sulfate (Albuterol Sulfate 90 Mcg 8 Gm Inhaler) 2 puff INHALE Q6H PRN PRN Reason: wheezing Amlodipine Besylate (Amlodipine Besylate 5 Mg Tablet) 5 mg PO DAILY [facility]; Protocol Last Admin: 06/01/22 09:05 Dose: 5 mg Documented By: PERLITA Albuterol Sulfate 2.5 mg/ (Ipratropium [place] 0.5 mg) 0 mg INHALE RQ4H WHILE AWAKE [facility] Last Admin: 06/01/22 15:24 Dose: 1 each Documented By: ALEN Cyanocobalamin (Cyanocobalamin (Vitamin B-12) 500 Mcg Tablet) 500 mcg PO DAILY [facility] Last Admin: 06/01/22 09:06 Dose: 500 mcg Documented By: PERLITA Enoxaparin Sodium (Enoxaparin Sodium 40 Mg/0.4 Ml Syringe) 40 mg SUBCUT Q24H [facility] Last Admin: 06/01/22 13:48 Dose: 40 mg Documented By: PERLITA Furosemide (Furosemide 20 Mg Tablet) 20 mg PO DAILY [facility]; Protocol Last Admin: 06/01/22 09:05 Dose: 20 mg Documented By: PERLITA Guaifenesin (Guaifenesin 200 Mg/10 Ml 10 Ml Liquid) 10 ml PO Q4H PRN PRN Reason: Cough Losartan Potassium (Losartan Potassium 25 Mg Tablet) 25 mg PO DAILY [facility]; Protocol Last Admin: 06/01/22 09:06 Dose: 25 mg Documented By: PERLITA Methylprednisolone Sodium Succinate (Methylprednisolone Sod Succ 40 Mg/Ml Vial) 40 mg IVPUSH Q12H [facility] Omeprazole (Omeprazole 40 Mg Capsule.Dr) 40 mg PO DAILY@0630 [facility] Last Admin: 06/01/22 05:32 Dose: 40 mg Documented By: SHANKAR Ondansetron HCl (Ondansetron Hcl 4 Mg/2 Ml Vial) 4 mg IVPUSH Q8H PRN PRN Reason: Nausea and Vomiting Pharmacy Consult (Consult Rx Perform Med Rec) 1 each MISCELLANE ONCE PRN PRN Reason: Consult order Sodium Chloride (0.9 % Sodium Chloride Flush 3 Ml Syringe) 3 ml IVFLUSH QSHIFT [facility] Last Admin: 06/01/22 13:48 Dose: 3 ml Documented By: PERLITA Vitamin D (Cholecalciferol (Vitamin D3) 25 Mcg Tablet) 25 mcg PO DAILY [facility] Last Admin: 06/01/22 09:05 Dose: 25 mcg Documented By: PERLITA Labs 06/01/22 06:26 06/01/22 06:26 Labs: Laboratory Results - last 24 hr 06/01/22 06/01/22 06:26 06:26 MCV 82.7 MCH 26.4 L MCHC 31.9 RDW 16.4 H Plt Count 194 MPV 9.1 L Immature Gran % (Auto) 0.5 H Neut % (Auto) 84.2 H Lymph % (Auto) 5.4 L [place] % (Auto) 9.9 Eos % (Auto) 0.0 Baso % (Auto) 0.0 Lymph # (Auto) 0.5 L [place] # (Auto) 1.0 Eos # (Auto) 0.0 Baso # (Auto) 0.0 Abs Immat Gran (auto) 0.05 H Absolute Neuts (auto) 8.4 H Absolute Nucleated RBC 0.000 Nucleated RBC % (auto) 0.0 Anion Gap 11 L Estim Creat Clear Calc 74.7 Estimated GFR > 60 Random Glucose 108 Calcium 8.9 Assessment and Plan (1) Acute and chronic respiratory failure: Status: Acute (2) Chronic GERD: Status: Acute Plan 77-year-old female with history of COPD with chronic hypoxemic hypercapnic respiratory failure on 2 L supplemental O2 at baseline, GERD, hypertension admitted for acute on chronic hypoxemic hypercapnic respiratory failure # acute on chronic hypoxemic hypercapnic respiratory failure-etiology unclear at this time, possibly related to mild COPD exacerbation versus viral infection versus hypersensitivity pneumonitis -CXR negative for pneumonia, but does show bronchial wall thickening CXR negative for pneumonia.? Negative for COVID-19, RSV, influenza.? Full viral respiratory panel pending -VBG without significant change from baseline Continue IV prednisone 40 mg q.12 hours, hold antibiotics since recently finished course of antibiotic continue updraft treatment -uses 2 L supplemental O2 at baseline now requiring 3 L, continue supplemental O2 to maintain oximetry 90-92% -likely also has component of obesity hypoventilation syndrome, incentive spirometry ordered Consult pulmonology #Sinus tachycardia -intermittent, chronic -EKG showing sinus tachycardia with premature supraventricular complexes -likely related to increased sympathetic tone r/t COPD -not sepsis #HFpEF- no acute exacerbation - Lasix 20 mg every other day as previously prescribed # GERD -continue PPI # hypertension-reasonably controlled -continue amlodipine and losartan DVT prophylaxis-Lovenox DNR/DNI-discussed with patient, has living will noting DNR/DNI and healthcare proxy is her corsage maker Patient requires continued inpatient stay for management of acute on chronic hypoxemic hypercapnic respiratory failure with increased supplemental O2 requirements from baseline and further investigation into etiology of acute hypoxia. Time Spent With Patient Time: Total time managing care of this patient today ____ minutes. Quality Stroke Does the patient have a stroke diagnosis?: No VTE Prior VTE?: No VTE Risk Level:: Medical - moderate - high VTE Device Contraindication: Treatment Not Indicated VTE Drug Contraindication: N/A - Med Ordered
[2022-06-01] MEDS: methylPREDNISolone Sod Succ 40 MG/ML VIAL IVPUSH (23:01)
[2022-06-02 03:01] VITALS: BP 135/86; PULSE 98; RESP 18; TEMP 37.1; O2SAT 94
[2022-06-02] MEDS: Omeprazole 40 MG CAPSULE.DR PO (06:53)
[2022-06-02 07:52] VITALS: BP 162/85; PULSE 104; RESP 18; TEMP 36.7; O2SAT 94
[2022-06-02 08:03] VITALS: PULSE 105; RESP 20; O2SAT 93
[2022-06-02] MEDS: Cholecalciferol (Vitamin D3) 25 MCG TABLET PO (09:16)
[2022-06-02] MEDS: 0.9 % Sodium Chloride Flush 3 ML SYRINGE IVFLUSH (09:16)
[2022-06-02] MEDS: methylPREDNISolone Sod Succ 40 MG/ML VIAL IVPUSH (09:16)
[2022-06-02] MEDS: Cyanocobalamin (Vitamin B-12) 500 MCG TABLET PO (09:17)
[2022-06-02] MEDS: Losartan Potassium 25 MG TABLET PO (09:17)
[2022-06-02] MEDS: amLODIPine Besylate 5 MG TABLET PO (09:17)
[2022-06-02] MEDS: Furosemide 20 MG TABLET PO (09:17)
--- NOTE | 2022-06-02 10:16 | PM.CNPUL ---
History of Present Illness History of Present Illness Consult date: 06/02/22 Chief complaint: Acute on Chronic Hypoxia Narrative: This is an inpatient pulmonary consultation. The patient is a 77-year-old female with chronic hypoxic respiratory failure due to COPD, history of GERD hypertension presented with shortness of breath, patient seen and examined in the ED, CT chest showed no new abnormalities in the chest compared to 3rd 07/30/2022 patient has chronic centrilobular ground-glass opacities of both lungs differential include hypersensitivity pneumonitis. She was recently hospitalized and had been evaluated by pulmonary then. We also called her to make a follow up appointment and she deferred. Clinically she is feeling better. She is concerned with her current reseidence and exposure to pest and bats. Review of Systems Constitutional: Constitutional: Reports no additional constitutional complaints Cardiovascular: Cardiovascular: Reports dyspnea on exertion Respiratory: Respiratory: Reports cough, Reports excessive phlegm production and Reports dyspnea on exertion Genitourinary: Genitourinary: Reports no additional female genitourinary complaints Musculoskeletal: Musculoskeletal: Reports no additional musculoskeletal complaints [facility] Past Medical History Medical History COPD (chronic obstructive pulmonary disease) Essential hypertension GERD (gastroesophageal reflux disease) Pneumonitis Pulmonary nodule Family History Family History Mother Heart attack Father Suicide Mental health disorder Surgical History Surgical History H/O lithotripsy History of appendectomy Stented coronary artery Social History Social History Household Members: None Housing: Apartment Do you presently have visiting nurse or other home services: No Unable to assess alcohol history related to: Refusing to respond Alcohol intake: never Patient Tobacco Use Status: Former Tobacco user Tobacco use type: Cigarette Smoked in Last 30 Days: No e-Cigarette/Vaping Use: Former Use Second Hand Smoke Exposure: No Use of substances other than those prescribed or required for medical reasons: Refusing to respond Currently Displaying Signs/Symptoms of Drug Intoxication Withdrawal: No Advance Directives: Yes Advance Directives on File: Yes Advance Directives Date on File: 05/09/22 Do you have thoughts of harming others: None Do you have a plan to hurt others: No Plan Recently lost weight without trying: No Patient : No : No Poor oral hygiene: No service: No Current occupational status: retired Cognitive needs: Yes Hearing needs: No Vision needs: Yes Meds Allergies Allergy/AdvReac Type Severity Reaction Status Date / Time No Known Allergies Allergy Verified 05/23/22 09:22 Active Medications: Current Medications Acetaminophen (Acetaminophen 325 Mg Tablet) 650 mg PO Q6H PRN PRN Reason: Pain, Mild (Pain Scale 1-3) Albuterol Sulfate (Albuterol Sulfate 90 Mcg 8 Gm Inhaler) 2 puff INHALE Q6H PRN PRN Reason: wheezing Amlodipine Besylate (Amlodipine Besylate 5 Mg Tablet) 5 mg PO DAILY [facility]; Protocol Last Admin: 06/02/22 09:17 Dose: 5 mg Albuterol Sulfate 2.5 mg/ (Ipratropium Bastian 0.5 mg) 0 mg INHALE RQ4H WHILE AWAKE [facility] Last Admin: 06/02/22 08:01 Dose: 2.5 each Cyanocobalamin (Cyanocobalamin (Vitamin B-12) 500 Mcg Tablet) 500 mcg PO DAILY [facility] Last Admin: 06/02/22 09:17 Dose: 500 mcg Enoxaparin Sodium (Enoxaparin Sodium 40 Mg/0.4 Ml Syringe) 40 mg SUBCUT Q24H DENISA Last Admin: 06/01/22 13:48 Dose: 40 mg Furosemide (Furosemide 20 Mg Tablet) 20 mg PO DAILY [facility]; Protocol Last Admin: 06/02/22 09:17 Dose: 20 mg Guaifenesin (Guaifenesin 200 Mg/10 Ml 10 Ml Liquid) 10 ml PO Q4H PRN PRN Reason: Cough Losartan Potassium (Losartan Potassium 25 Mg Tablet) 25 mg PO DAILY [facility]; Protocol Last Admin: 06/02/22 09:17 Dose: 25 mg Methylprednisolone Sodium Succinate (Methylprednisolone Sod Succ 40 Mg/Ml Vial) 40 mg IVPUSH Q12H DENISA Last Admin: 06/02/22 09:16 Dose: 40 mg Omeprazole (Omeprazole 40 Mg Capsule.Dr) 40 mg PO DAILY@0630 [facility] Last Admin: 06/02/22 06:53 Dose: 40 mg Ondansetron HCl (Ondansetron Hcl 4 Mg/2 Ml Vial) 4 mg IVPUSH Q8H PRN PRN Reason: Nausea and Vomiting Pharmacy Consult (Consult Rx Perform Med Rec) 1 each MISCELLANE ONCE PRN PRN Reason: Consult order Sodium Chloride (0.9 % Sodium Chloride Flush 3 Ml Syringe) 3 ml IVFLUSH QSHIFT [facility] Last Admin: 06/02/22 09:16 Dose: 3 ml Vitamin D (Cholecalciferol (Vitamin D3) 25 Mcg Tablet) 25 mcg PO DAILY [facility] Last Admin: 06/02/22 09:16 Dose: 25 mcg Home Medications Medication Instructions Recorded Confirmed Last Taken Type cholecalciferol (vitamin D3) 25 25 mcg PO DAILY 05/03/22 05/31/22 05/14/22 History mcg (1,000 unit) tablet (Vitamin D3) cyanocobalamin (vitamin B-12) 500 500 mcg PO DAILY 05/03/22 05/31/22 05/14/22 History mcg tablet omeprazole 20 mg capsule,delayed 40 mg PO DAILY 05/03/22 05/31/22 05/14/22 History release vitamin E 268 mg (400 unit) capsule 268 mg PO DAILY 05/03/22 05/31/22 05/14/22 History albuterol sulfate 90 mcg/actuation 2 puff inhalation Q6H PRN wheezing 05/15/22 05/31/22 05/14/22 History aerosol inhaler losartan 25 mg tablet 1 tab PO DAILY 05/15/22 05/31/22 05/31/22 History Physical Exam Vital Signs: Vital Signs: Last Vital Signs Temp 98.1 F 06/02/22 07:52 Pulse 105 H 06/02/22 08:03 Resp 20 06/02/22 08:03 BP 162/85 H 06/02/22 07:52 Pulse Ox 94 06/02/22 07:52 O2 Del Method Nasal Cannula 06/02/22 03:01 O2 Flow Rate 4 06/02/22 03:01 BMI result Body Mass Index 40.3 Const: Other: General awake alert x3 , sitting comfortably in no acute distress. Neck supple no JVD. CVS regular rate rhythm, Respiratory lungs rales, no respiratory distress, no use of accessory muscles Gastrointestinal abdomen soft, nontender, bowel sounds audible, no guarding , no rigidity. Extremities no edema. Neuro nonfocal Skin no rash Psych appropriate affect Results Laboratory Findings 06/01/22 06:26 06/01/22 06:26 Abnormal lab findings: Abnormal Labs 05/31/22 05/31/22 05/31/22 05:46 05:46 10:10 RBC 5.52 H Hct 47.1 H MCH 26.6 L RDW 16.3 H MPV 9.1 L Immature Gran % (Auto) 0.5 H Neut % (Auto) 75.4 H Lymph % (Auto) 11.3 L Lymph # (Auto) 1.0 L Abs Immat Gran (auto) 0.04 H Absolute Neuts (auto) VBG pH VBG HCO3 Carbon Dioxide 30 H Anion Gap BUN 20 H Total Protein 6.2 L 05/31/22 06/01/22 06/01/22 10:16 06:26 06:26 RBC Hct MCH 26.4 L RDW 16.4 H MPV 9.1 L Immature Gran % (Auto) 0.5 H Neut % (Auto) 84.2 H Lymph % (Auto) 5.4 L Lymph # (Auto) 0.5 L Abs Immat Gran (auto) 0.05 H Absolute Neuts (auto) 8.4 H VBG pH 7.46 H VBG HCO3 27 H Carbon Dioxide 33 H Anion Gap 11 L BUN 26 H Total Protein Assessment and Plan (1) Acute exacerbation of chronic obstructive airways disease: Status: Acute (2) Pneumonitis: Status: Resolved (3) Pulmonary nodule: Status: Resolved Plan ok to go home F/U with out pt pulmonary repeat outpt CT chest 3-4 months continue oxygen continue respiratory therapy slow prednisone taper Time Spent With Patient Time: Total time managing care of this patient today ____ minutes. Procedures Date of Service Date of Service: 06/02/22
[2022-06-02 11:39] VITALS: PULSE 105; O2SAT 95
--- NOTE | 2022-06-02 12:22 | MHC.CM.PN ---
DEEDEE spoke with [facility] /Raquel and Elsa. From [email or web address], DEEDEE was able to provide Patient with a contact at Medicare (Keri @ [phone]) who may be able to assist Patient with her medication scripts while she is waiting to get her eligibility for Medicare Part D. DEEDEE has relayed this information to the MD.
[2022-06-02] MEDS: Enoxaparin Sodium 40 MG/0.4 ML SYRINGE SUBCUT (13:07)
--- NOTE | 2022-06-02 14:11 | W.MHC.F2F ---
Service Date Service Date: 06/02/22 Encounter Date of encounter: 06/02/22 Reasons for Services Signs and symptoms assessed: dyspnea Reason for senior care: medication management, medication treatment and teach disease management Reason for physical therapy: home safety and mobility, therapeutic exercises, gait/transfer training, assess need for DME, ADL training and energy conservation MD Overseeing Care: Larissa Ochoa Homebound: Leaving the home is medically contraindicated at this time without the asist of a device and/or another person due th the listed conditions above and below. Reason homebound: shortness of breath with minimal effort and weakness related to hospital stay Certification: Based on the above findings, I certify that this patient is confined to the home and needs intermittent senior care care, physical therapy and/or speech therapy, or continues to need occupational therapy. The patient is under my care, and I have initiated the establishment of the plan of care. The patient will be followed by a physician who will periodically review the plan of care. Time Spent With Patient Time: Total time managing care of this patient today ____ minutes.
--- NOTE | 2022-06-02 14:18 | P.DS_ITS ---
DS: Providers Provider Date of Service: 06/02/22 Date of admission: 05/31/22 13:04 Date of discharge: 06/02/22 Primary care physician: NHAN Gerber Consults: 06/01/22 09:24 Consult to Pulmonology Routine Consulting Provider: Darci Iverson Reason for consultation: copd recurrent admissions DS: Diagnosis Discharge Diagnosis (1) Acute exacerbation of chronic obstructive airways disease: Status: Acute (2) Pneumonitis: Status: Resolved (3) Pulmonary nodule: Status: Resolved (4) Acute and chronic respiratory failure with hypoxia: Status: Acute DS: Summary Hospital Course Hospital Course: from admission H+P on 05/31/22 by hospitalist JONI Reich Nicolle: 77-year-old female with history of COPD with chronic hypoxemic hypercapnic respiratory failure on 2 L supplemental O2 at baseline, GERD, hypertension presented to the ED earlier today for evaluation of worsening shortness of breath and hypoxia ongoing for several days.? She states that she has been having increased O2 requirement and has been requiring up to 5L supplemental O2 to maintain oximetry of 92%.? She was recently admitted and discharged from [facility] on 05/16 for COPD exacerbation and was discharged on azithromycin and prednisone which she states she completed.? She feels her symptoms never fully resolved though did improve slightly.? She does still continue to have an occasionally productive cough with white sputum production that has not worsened however.? She did also have hospitalization from 05/03/2024 for similar diagnosis.? She had been advised at that time to start 20 mg of Lasix every other day but the patient states she stopped taking it as her PCP did not provide refills and she did not like the increased frequency of urination.? There have been no fevers, chills, sore throat, congestion, abdominal pain, nausea, vomiting, lightheadedness, palpitations, or chest pain. Per ED note, upon arrival to her home, EMS noted oximetry of 79% and increased supplemental O2 to 6 L. on arrival, patient oximetry ranging 88-93% at rest on 6 L.? She was initially hypertensive to 180/100, tachycardic to 120 and has been intermittently tachypneic to 25 primarily with movement.? There is no leukocytosis.? Renal function normal, electrolyte levels normal.? Troponin 9.6, BNP 73.? Negative for COVID-19, influenza, RSV.? CXR is negative for any focal consolidation but does show bronchial wall thickening suggestive of small airways disease or atypical/viral infection.? She did have recent chest CTA on 05/03 which was negative for central PE.? EKG showing sinus tachycardia with premature supraventricular complexes, rate 110. In the ED, given albuterol, IV magnesium, 125 mg methylprednisolone. [facility] and treated with oxygen and IV steroids. No pneumonia on CXR and full viral respiratory pathogen workup negative. Weaned from 3L to baseline 2L O2 via NC. Pulmonology consulted. Impression was of COPD exacerbation with possible component of hypersensitivity pneumonitis. Symptoms improved and she was discharged on a slow prednisone taper over 20 days with VNA services, Primary Care follow-up, and Pulmonology follow-up. She will need a repeat CT of the chest in 3-4 months for a known RUL nodule. Time Spent with Patient Time attestation: Total time managing care of this patient today _40___ minutes. Discharge coordination time: Greater than 30 minutes Quality: Safe Use of Opioids Does Pt have an Active Cancer Diagnosis on the Problem List?: No Quality: Stroke Does the patient have a stroke diagnosis?: No Physical Exam Vital Signs: Vital Signs: Last Vital Signs Temp 98.1 F 06/02/22 07:52 Pulse 105 H 06/02/22 11:39 Resp 20 06/02/22 08:03 BP 162/85 H 06/02/22 07:52 Pulse Ox 95 06/02/22 11:39 O2 Del Method Nasal Cannula 06/02/22 03:01 O2 Flow Rate 4 06/02/22 03:01 BMI result Body Mass Index 40.3 Gen: in no acute distress HEENT: sclera anicteric, moist mucus membranes Neck: supple Lungs: clear to auscultation bilaterally Heart: regular rate and rhythm, no murmurs Abd: soft, non-tender, non-distended, morbid obesity Ext: no edema Skin: warm/well-perfused Neuro: alert and oriented x3, no focal findings Psych: appropriate affect DS: Data Data Completed and Pending Completed studies during hospitalization [Text1]: Laboratory Results WBC 10.0 X10*3/uL (4.8-10.8) 06/01/22 06:26 RBC 4.92 X10*6/uL (4.20-5.50) 06/01/22 06:26 Hgb 13.0 g/dl (12.0-16.0) 06/01/22 06:26 Hct 40.7 % (37.0-47.0) 06/01/22 06:26 MCV 82.7 fL (80.0-98.0) 06/01/22 06:26 MCH 26.4 pg (27.0-33.0) L 06/01/22 06:26 MCHC 31.9 g/dl (31.0-35.0) 06/01/22 06:26 RDW 16.4 % (11.0-16.0) H 06/01/22 06:26 Plt Count 194 X10*3/uL (160-400) 06/01/22 06:26 MPV 9.1 fL (9.4-12.3) L 06/01/22 06:26 Immature Gran % (Auto) 0.5 % (0.0-0.4) H 06/01/22 06:26 Neut % (Auto) 84.2 % (45-73) H 06/01/22 06:26 Lymph % (Auto) 5.4 % (20-40) L 06/01/22 06:26 [place]ill % (Auto) 9.9 % (2-11) 06/01/22 06:26 Eos % (Auto) 0.0 % (0-4) 06/01/22 06:26 Baso % (Auto) 0.0 % (0-2) 06/01/22 06:26 Lymph # (Auto) 0.5 X10*3/uL (1.2-4.9) L 06/01/22 06:26 [place] # (Auto) 1.0 X10*3/uL (0.1-1.2) 06/01/22 06:26 Eos # (Auto) 0.0 X10*3/uL (0.0-0.4) 06/01/22 06:26 Baso # (Auto) 0.0 X10*3/uL (0.0-0.2) 06/01/22 06:26 Abs Immat Gran (auto) 0.05 X10*3/uL (0.00-0.03) H 06/01/22 06:26 Absolute Neuts (auto) 8.4 x10*3/uL (2.0-8.3) H 06/01/22 06:26 Absolute Nucleated RBC 0.000 X10*3/uL (0.0-0.012) 06/01/22 06:26 Nucleated RBC % (auto) 0.0 /100WBC (0.0-0.2) 06/01/22 06:26 VBG pH 7.46 (7.32-7.43) H 05/31/22 10:16 VBG pCO2 38 mmHg 05/31/22 10:16 VBG pO2 80 mmHg 05/31/22 10:16 VBG HCO3 27 mmol/L (22-26) H 05/31/22 10:16 VBG O2 Saturation 97.0 % 05/31/22 10:16 VBG Base Excess 4.0 mmol/L 05/31/22 10:16 Sodium 141 mmol/L (135-145) 06/01/22 06:26 Potassium 4.0 mmol/L (3.3-5.1) 06/01/22 06:26 Chloride 101 mmol/L (96-108) 06/01/22 06:26 Carbon Dioxide 33 mmol/L (22-29) H 06/01/22 06:26 Anion Gap 11 (12-20) L 06/01/22 06:26 BUN 26 mg/dL (9-16) H 06/01/22 06:26 Creatinine 0.78 mg/dL (0.5-1.4) 06/01/22 06:26 Estim Creat Clear Calc 74.7 06/01/22 06:26 Estimated GFR > 60 06/01/22 06:26 Random Glucose 108 mg/dL (60-115) 06/01/22 06:26 Calcium 8.9 mg/dL (8.4-10.2) 06/01/22 06:26 Total Bilirubin 0.7 mg/dL (0.0-1.0) 05/31/22 10:10 Direct Bilirubin 0.3 mg/dL (0.0-0.5) 05/31/22 10:10 AST 17 U/L (5-31) 05/31/22 10:10 ALT 19 U/L (0-31) 05/31/22 10:10 Alkaline Phosphatase 70 U/L (39-117) 05/31/22 10:10 Troponin I High Sens 9.6 ng/L (<3.5-17.0) 05/31/22 05:46 B-Natriuretic Peptide 73 pg/mL (<100) 05/31/22 10:10 Total Protein 6.2 g/dL (6.5-8.0) L 05/31/22 10:10 Albumin 3.7 g/dL (3.5-5.0) 05/31/22 10:10 Respiratory Panel Gipson See Note 05/31/22 13:36 Adenovirus (Rapid PCR) Not Detected (Not Detect.) 05/31/22 13:36 B.pert (TEM-PCR) Not Detected (Not Detect.) 05/31/22 13:36 B.parapertussis DNA PCR Not Detected (Not Detect.) 05/31/22 13:36 C. pneumoniae DNA (PCR) Not Detected (Not Detect.) 05/31/22 13:36 Coronavirus OC43 (PCR) Not Detected (Not Detect.) 05/31/22 13:36 Coronavirus HKU1 (PCR) Not Detected (Not Detect.) 05/31/22 13:36 Coronavirus 229E (PCR) Not Detected (Not Detect.) 05/31/22 13:36 COVID-19 (CINDY) Negative (Negative) 05/31/22 08:16 COVID-19 Clin Com See Note 05/31/22 08:16 Coronavirus NL63 (PCR) Not Detected (Not Detect.) 05/31/22 13:36 Human Metapneumovir PCR Not Detected (Not Detect.) 05/31/22 13:36 Influenza A (RT-PCR) Not Detected (Not Detect.) 05/31/22 13:36 Influenza Type A (PCR) NEGATIVE (Negative) 05/31/22 10:10 Influenza B (RT-PCR) Not Detected (Not Detect.) 05/31/22 13:36 Influenza Type B (PCR) NEGATIVE (Negative) 05/31/22 10:10 M. pneumoniae (PCR) Not Detected (Not Detect.) 05/31/22 13:36 Parainfluenza 1 (PCR) Not Detected (Not Detect.) 05/31/22 13:36 Parainfluenza 2 (PCR) Not Detected (Not Detect.) 05/31/22 13:36 Parainfluenza 3 (PCR) Not Detected (Not Detect.) 05/31/22 13:36 Parainfluenza 4 (PCR) Not Detected (Not Detect.) 05/31/22 13:36 RSV (PCR) Not Detected (Not Detect.) 05/31/22 13:36 RSV RNA Qual (PCR) NEGATIVE (Negative) 05/31/22 10:10 Entero/Rhino (PCR) Not Detected (Not Detect.) 05/31/22 13:36 SARS-CoV-2 RNA (RT-PCR) Not Detected (Not Detect.) 05/31/22 13:36 Impressions Chest X-Ray 05/31/22 06:17 IMPRESSION: No dense consolidation. Bronchial wall thickening can be seen with a small airways process such as asthma or atypical/viral infection. Chest CT 05/31/22 13:51 IMPRESSION: * No new abnormalities in the chest compared to 05/15/2022. * Persistent patchy centrilobular groundglass opacities in both lungs could be due to noninfectious or infectious bronchiolitis and pneumonitis. Query if there is any history of cigarette smoking. A hypersensitivity pneumonitis can be included in the differential diagnosis if in the proper clinical context. * Again noted is a nonspecific irregular patchy opacity in the right upper lobe. This is stable compared to 05/03/2022 and 05/15/2022. Although this could be sequela of infectious or inflammatory disease, an underlying neoplastic lesion is not excluded and follow up is recommended. No lymphadenopathy. 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 Discharge Plan Discharge Anticipated Discharge Date/Time: 06/02/22 14:12 Patient Disposition: Home Health Service Discharge Diagnosis: acute on chronic hypoxemic respiratory failure- due to COPD exacerbation and possibly hypersensitivity pneumonitis Referrals: Larissa Navarrete MD [Physician] - 1 Week Darci Iverson MD [Physician] - 1 Week Discharge Medications: New prednisone 10 mg tablet See Rx Instructions .ROUTE .COMPLEX Qty: 42 0RF Rx Instructions: 40 mg daily x 4 days, then 30 mg daily x 4 days, then 20 mg daily x 4 days, then 10 mg daily x 4 days, then 5 mg daily x 4 days Continued amlodipine 5 mg tablet 5 mg PO DAILY 90 Days Qty: 90 1RF cyanocobalamin (vitamin B-12) 500 mcg Tablet 500 mcg PO DAILY omeprazole 20 mg Capsule,Delayed Release(Dr/Ec) 40 mg PO DAILY vitamin E 268 mg (400 unit) Capsule 268 mg PO DAILY cholecalciferol (vitamin D3) [Vitamin D3] 25 mcg (1,000 unit) Tablet 25 mcg PO DAILY losartan 25 mg tablet 1 tab PO DAILY albuterol sulfate 90 mcg/actuation HFA aerosol inhaler 2 puff INHALATION Q6H PRN (Reason: wheezing) Discharge Orders: Discharge Order (Routine); Ordered 06/02/22 Ordered By: Shmuel Steward Diet: Advance to usual diet Activity on Discharge: As tolerated Stand Alone Forms: Patient Portal Discharge page Care Plan Goals: respiratory health Health Concerns: acute on chronic hypoxemic respiratory failure- due to COPD exacerbation and possibly hypersensitivity pneumonitis Plan of Treatment: prednisone taper: 40 mg daily x 4 days, then 30 mg daily x 4 days, then 20 mg daily x 4 days, then 10 mg daily x 4 days, then 5 mg daily x 4 days, then stop Albuterol as needed for shortness of breath or wheezing. [facility] with [facility] Dr Iverson Repeat CT chest in 3-4 mo. Please follow up with your primary care doctor within 1 week. Return to the hospital if you experience recurrent or worsening symptoms. Assessment: See Discharge Summary.
--- NOTE | 2022-06-02 14:37 | MHC.CM.PN ---
Patient has been medically cleared for dc to home today with [facility]. [facility] has accepted Patient and has approved a 06/05/2022 SOC. [facility] is aware of today's dc. Patient has a portable O2 tank to go home with and Patient will dc to home today at 3 PM via [facility].
--- NOTE | 2022-06-02 14:56 | MHC.CM.PN ---
Last IMM addressed yesterday.
== END 2022-06-02 15:12 | disposition home or self-care (01) | DRG 190 ==
LOC: HO.ED 12:11 → HO.EDOVER 13:27 → HO.IMC 18:05
PROVIDERS: Nurse Practitioner Family; Admitting Provider Physician Assistant; Emergency Provider Emergency Medicine; PCP Nurse Practitioner Family; Visit Provider Family Medicine
DX: J44.1 Chronic obstructive pulmonary disease with (acute) exacerbation (principal); J96.21 Acute and chronic respiratory failure with hypoxia; J96.22 Acute and chronic respiratory failure with hypercapnia; I50.32 Chronic diastolic (congestive) heart failure; E66.2 Morbid (severe) obesity with alveolar hypoventilation; Z68.41 Body mass index [BMI] 40.0-44.9, adult; R00.0 Tachycardia, unspecified; Z66 Do not resuscitate; I11.0 Hypertensive heart disease with heart failure; K21.9 Gastro-esophageal reflux disease without esophagitis; Z20.822 Contact with and (suspected) exposure to COVID-19; Z99.81 Dependence on supplemental oxygen; Z87.891 Personal history of nicotine dependence; Z79.899 Other long term (current) drug therapy
CPT/HCPCS: 0241U; 36415; 71045; 71250; 80048; 80076; 82803; 83880; 84484; 85025; 87633; 87635; 93005; 94640; 94660; 97162; 99285; J1650; J2920; J2930; J3475